=== PATIENT | female | born 1980 ===

== ENCOUNTER 2023-08-11 21:15 | Outpatient (REF) | payer MEDICARE, MEDICAID, SELFPAY ==
[2023-08-15 22:07] LABS: Age Gdln ACOG Testing Note (.); HPV Aptima Positive (Negative); HPV Genotype 16 Negative (Negative); HPV Genotype 18,45 Negative (Negative); IGP, Aptima HPV, rfx 16/18,45 Note (.)
== END 2023-08-11 21:16 | disposition home or self-care (01) ==
LOC: LAB 21:15
PROVIDERS: PCP Physician Assistant; Visit Provider Physician Assistant
DX: Z01.419 Encounter for gynecological examination (general) (routine) without abnormal findings (principal)
CPT/HCPCS: 87624; 87625; G0145

== ENCOUNTER 2024-08-16 21:26 | Outpatient (REF) | payer OTHER, SELFPAY ==
--- OUTSIDE RECORDS SUMMARY | 2024-08-16 21:32 | XMS_ITS | CCD ---
Author Organization [facility] Care Team Providers Care Health It Specialist Name Role Phone Scot Joseph MD Unavailable Fuentes Proctor MD Unavailable [phone] MD, Aramis Primary Care Provider Oliverio Willis Unavailable Scot Joseph MD Unavailable Fuentes Proctor MD Unavailable [address] MD, Aramis Primary Care Provider Shaikh Laila uBrroughs MD Primary Care Provider [address] MD, Aramis Primary Care Provider Shaikh Burroughs MD Primary Care Provider MD Duran Loaiza Attending Provider MD Pretty Burroughs Primary Care Provider Duran Loaiza Attending Unavailable Duran Loaiza Admitting Unavailable Shaikh Burroughs Primary Care Unavailable MD Duran Loaiza Attending Provider MD Pretty Burroughs Primary Care Provider SHAIKH BURROUGHS Primary Care Unavailable ABA MENON Attending Unavailable SHAIKH BURROUGHS Referring Unavailable SHAIKH BURROUGHS Primary Care Unavailable SHAIKH BURROUGHS Primary Care Unavailable ROBERTO FRANCO Attending Unavailable SHAIKH BURROUGHS Primary Care Unavailable YASMEEN LANIER Attending Unavailab le FAWWAD, Attending Unavailable MARAL HICKEY Attending Unavailable FAWWAD, Attending Unavailable FAWWAD, Attending Unavailable FAWWAD, Attending Unavailable COLLETTE SALINAS Attending UnavailEdmundo Hart MD Primary Care Provider Rita [facility] VICE PRESIDENT, Collette Unavailable SELF, SELF Referring Unavailable KALYAN PROCTOR Attending Unavailable FAWWAD, [facility] Primary Care Unavailab le NELLISLERLOIKALYAN L Referring Unavailable FAWWAD, [facility] Primary Care Unavailab GEORGE Rodriguez Attending Unavailable GEORGE BANKS Attending Unavailable KALYAN PROCTOR L Referring Unavailable FAWWAD, [facility] Primary Care Unavailab aliyah ROCAAMGEORGE Attending Unavailable KALYAN PROCTOR L Referring Unavailable FAWWAD, [facility] Primary Care Unavailab le KALYAN PROCTOR Attending Unavailable SELF, SELF Referring Unavailable FAWWAD, [facility] Primary Care Unavailab GEORGE Rodriguez Attending Unavailable WHKALYAN GUERRA L Referring Unavailable FAWWAD, [facility] Primary Care Unavailab GEORGE Rodriguez Attending Unavailable KALYAN PROCTOR L Referring Unavailable FAWWAD, [facility] Primary Care Unavailab le WHISLER KALYAN L Referring Unavailable FAWWAD, [facility] Primary Care Unavailab STORM Zelaya Attending Unavailable KALYAN PROCTOR Attending Unavailable SELF, SELF Referring Unavailable FAWWAD, [facility] Primary Care Unavailab le WHISLER KALYAN L Referring Unavailable FAWWAD, [facility] Primary Care Unavailab ANGELLA Mariscal Attending Unavailable KALYAN PROCTOR Referring Unavailable FAWWAD, [facility] Primary Care Unavailab ANGELLA Mariscal Attending Unavailable ANDRZEJ WHITE Attending Unavailable KALYAN PROCTOR Referring Unavailable FAWWAD, [facility] Primary Care Unavailab le KALYAN PROCTOR L Referring Unavailable FAWWAD, [facility] Primary Care Unavailab MELISSA Cheng Attending Unavailable Allergies Allergy Classification Reported Allergen(s) Allergy Type Date of Onset Reaction(s) Facility Latex (1 source) Latex Substance Allergy 11-24-19 11 Itching [facility] NSAIDs (1 source) Naproxen Drug Allergy 11-24-19 11 [facility] ([facility] source) Penicillin V Drug Allergy 11-24-19 11 Rash [facility] Quinolones (antibiotic) (2 sources) Ciprofloxacin Drug Allergy 04-11-20 11 Rash [facility] (20 sources) Ciprofloxacin Drug Allergy 04-11-20 11 Rash [facility] (19 sources) Latex Propensity to adverse reactions to drug 11-24-19 11 Itching [facility] (20 sources) Naproxen Drug Allergy 11-24-19 11 Abdominal Discomfort, GI intolerance [facility] (20 sources) Penicillin V Drug Allergy 11-24-19 11 Rash [facility] (20 sources) Latex Propensity to adverse reactions to drug 11-24-19 11 Itching [facility] (2 sources) Penicillin Drug Allergy Unknown [facility] Other (10 sources) Penicillins; Translations: [PENICILLINS] Propensity to adverse reactions 05-10-20 19 Rash [facility] (4 sources) Ciprofloxacin; Translations: [ciprofloxacin] Drug Allergy 05-10-20 19 Unknown Reaction [facility] (1 source) Penicillins Drug allergy (disorder) 08-26-19 24 [facility] Repository Medications Current Medications Medication Drug Class(es) Dates Sig (Normalized) Sig (Original) azaTHIOprine 50 mg oral tablet (20 sources) Purine Antimetabolite Start: 04-04-2023 End: 06-14-2024 take 1 tablet by mouth in the morning azaTHIOprine (Imuran) 50 MG tablet Take 50 mg by mouth in the morning. 06/07/2023 Active clindamycin 300 mg oral capsule (1 source) Lincosamide Antibacterial Start: 11-13-2023 End: 11-20-2023 take 1 capsule by mouth three times daily clindamycin 300 MG capsule Take 1 capsule by mouth Three times a day. 11/13/2023 11/20/2023 Active colchicine 0.6 mg oral tablet (1 source) Start: 08-30-2019 take 1 tablet by mouth twice daily Colcrys 0.6 MG tablet Take 0.6 mg by mouth 2 times daily. 0 08/30/2019 Active DISABILITY PLACARD (20 sources) Start: 03-12-2024 DISABILITY PLACARD Indications: Seronegative rheumatoid arthritis , Rheumatoid arthritis involving multiple sites with positive rheumatoid factor , Polyarthralgia , Encounter for long-term current use of medication Disability placard end date 2023 has arthritis needs placard 4 years cannot walk 30 feet 1 Each 03/12/2024 Active Start: 03-12-2024 DISABILITY CLARITA CARD Disability placard end date 2028 has arthritis cannot walk 20 feet needs placard 5 years 1 Each 03/12/2024 Active Start: 03-12-2024 DISABILITY CLARITA CARD Disability placard end date 2028 has arhtritis cannot walk 20 feet needs placard 5 years 1 Each 03/12/2024 Active Start: 03-12-2024 DISABILITY CLARITA CARD Disability placard end date 2028 has arthritis needs placard 5 years cannot walk 30 feet From 12/21/2019 1 Each 03/12/2024 Active Start: 01-06-2024 End: 03-12-2024 DISABILITY PLACARD Indicatio ns: Seronegative rheumatoid arthritis , Rheumatoid arthritis involving multiple sites with positive rheumatoid factor , Polyarthralgia , Encounter for long-term current use of medication Disability placard end date 2023 has arthritis needs placard 4 years cannot walk 30 feet 1 Each 01/06/2024 03/12/2024 Discontinued (Reorder) Start: 01-06-2024 DISABILITY CLARITA CARD Indications: Seronegative rheumatoid arthritis , Rheumatoid arthritis involving multiple sites with positive rheumatoid factor , Polyarthralgia , Encounter for long-term current use of medication Disability placard end date 2023 has arthritis needs placard 4 years cannot walk 30 feet 1 Each 01/06/2024 Active Start: 12-30-2023 End: 03-12-2024 DISABILITY PLACARD Disabilit y placard end date 2028 has arthritis needs placard 5 years cannot walk 30 feet From 12/21/2019 1 Each 12/30/2023 03/12/2024 Discontinued (Reorder) Start: 12-30-2023 DISABILITY CLARITA CARD Disability placard end date 2028 has arthritis needs placard 5 years cannot walk 30 feet From 12/21/2019 1 Each 12/30/2023 Active Start: 12-21-2019 DISABILITY CLARITA CARD Indications: Seronegative rheumatoid arthritis , Rheumatoid arthritis involving multiple sites with positive rheumatoid factor , Polyarthralgia , Encounter for long-term current use of medication Disability placard end date 2023 has arthritis needs placard 4 years cannot walk 30 feet 1 Each 12/21/2019 Active Start: 12-21-2019 DISABILITY CLARITA CARD Indications: Seronegative rheumatoid arthritis , Rheumatoid arthritis involving multiple sites with positive rheumatoid factor , Polyarthralgia , Encounter for long-term current use of medication Disability placard end date 2023 has arthritis needs placard 4 years cannot walk 30 feet 1 Each 0 12/21/2019 Active inFLIXimab 100 mg injection (20 sources) Tumor Necrosis Factor Sally inFLIXimab (Remicade ) 100 MG injection Indications: BEHCETS Infuse 100 mg into a venous catheter 1 (one) time if needed (EVERY 5 WEEKS PER RHEUMATOLOGY). 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 Every 5 weeks Active Infliximab (Remicade) 100 mg Recon Soln (2 sources) Start: 07-26-2019 Infliximab (Re micade) 100 mg Recon Soln Active 1 DOSE IV EVERY 8 WEEKS July 26, 2019 1:00am Start: 07-26-2019 Infliximab (Re micade) 100 mg Recon Soln Active 1 DOSE IV EVERY 8 WEEKS July 26, 2019 12:00am omeprazole 40 mg delayed release oral capsule (5 sources) Proton Pump Inhibitor Start: 08-25-2023 take 1 capsule by mouth once daily Omeprazole Active 40 MG PO Daily August 25, 2023 1:00am [employer] capsule 30 minutes before morning meal Oral Once a day; Note: Source Status: Taking; Refills: 11; Provider: Lazaro Nance Start: 05-08-2023 omeprazole (Pr iLOSEC) [address] capsule Take by mouth Daily before meals. 0 05/08/2023 Active predniSONE 5 mg oral tablet (20 sources) Start: 03-24-2024 End: 06-14-2024 take 1 tablet by mouth twice daily predniSONE 5 MG tablet Indications: Seronegative rheumatoid arthritis , Polyarthralgia , Encounter for long-term current use of medication , Rheumatoid arthritis involving multiple sites with positive rheumatoid factor Take 1 tablet by mouth 2 times daily. 180 tablet 06/14/2024 Active Start: 01-01-2024 take 1 tablet by leah th twice daily predniSONE 5 MG tablet Indications: Seronegative rheumatoid arthritis , Polyarthralgia , Encounter for long-term current use of medication , Rheumatoid arthritis involving multiple sites with positive rheumatoid factor take 1 tablet by mouth 2 times a day 180 tablet 01/01/2024 Active Start: 09-30-2023 take 1 tablet by leah th twice daily predniSONE 5 MG tablet Indications: Seronegative rheumatoid arthritis , Polyarthralgia , Encounter for long-term current use of medication , Rheumatoid arthritis involving multiple sites with positive rheumatoid factor take 1 tablet by mouth twice a day 180 tablet 09/30/2023 Active Start: 06-23-2023 take 1 tablet by leah th twice daily predniSONE 5 MG tablet Indications: Seronegative rheumatoid arthritis , Polyarthralgia , Encounter for long-term current use of medication , Rheumatoid arthritis involving multiple sites with positive rheumatoid factor Take 1 tablet by mouth 2 times daily. 180 tablet 06/23/2023 Active Start: 03-20-2023 take 2 tablets by mo uth in the morning predniSONE (Deltasone) 5 MG tablet Take 10 mg by mouth in the morning. 03/20/2023 Active Start: 12-21-2019 End: 01-17-2023 take 1 tablet by mouth twice daily predniSONE 5 MG tablet Indications: Seronegative rheumatoid arthritis , Polyarthralgia , Encounter for long-term current use of medication , Rheumatoid arthritis involving multiple sites with positive rheumatoid factor Take 1 tablet by mouth 2 times daily. 180 tablet 0 01/17/2023 Active Start: 07-26-2019 take 10 mg by mouth once daily Prednisone Active 10 MG PO Daily July 26, 2019 1:00am Completed/Discontinued Medications Medication Drug Class(es) Dates Sig (Normalized) Sig (Original) inFLIXimab (REMICADE) 750 mg in sodium chloride 0.9%, with overfill 275 mL (total volume) IVPB (8 sources) Start: 06-14-2022 End: 06-14-2022 inFLIXimab (REMICADE) 750 mg in sodium chloride 0.9%, with overfill 275 mL (total volume) IVPB Start: 05-03-2022 End: 05-03-2022 inFLIXimab (REMICADE) 750 mg in sodium chloride 0.9%, with overfill 275 mL (total volume) IVPB Start: 03-29-2022 End: 03-29-2022 inFLIXimab (REMICADE) 750 mg in sodium chloride 0.9%, with overfill 275 mL (total volume) IVPB Start: 02-22-2022 End: 02-22-2022 inFLIXimab (REMICADE) 750 mg in sodium chloride 0.9%, with overfill 275 mL (total volume) IVPB Start: 01-18-2022 End: 01-18-2022 inFLIXimab (REMICADE) 750 mg in sodium chloride 0.9%, with overfill 275 mL (total volume) IVPB Start: 12-14-2021 End: 12-14-2021 inFLIXimab (REMICADE) 750 mg in sodium chloride 0.9%, with overfill 275 mL (total volume) IVPB Start: 11-02-2021 End: 11-02-2021 inFLIXimab (REMICADE) 750 mg in sodium chloride 0.9%, with overfill 275 mL (total volume) IVPB Start: 02-05-2021 End: 02-05-2021 inFLIXimab (REMICADE) 750 mg in sodium chloride 0.9%, with overfill 275 mL (total volume) IVPB inFLIXimab (REMICADE) 750 mg in Sodium chloride 0.9%, with overfill 275 mL (total volume) IVPB (11 sources) Start: 07-03-2023 End: 07-03-2023 inFLIXimab (REMICADE) 750 mg in Sodium chloride 0.9%, with overfill 275 mL (total volume) IVPB Start: 05-30-2023 End: 05-30-2023 inFLIXimab (REMICADE) 750 mg in Sodium chloride 0.9%, with overfill 275 mL (total volume) IVPB Start: 04-28-2023 End: 04-28-2023 inFLIXimab (REMICADE) 750 mg in Sodium chloride 0.9%, with overfill 275 mL (total volume) IVPB Start: 03-24-2023 End: 03-24-2023 inFLIXimab (REMICADE) 750 mg in Sodium chloride 0.9%, with overfill 275 mL (total volume) IVPB Start: 02-17-2023 End: 02-17-2023 inFLIXimab (REMICADE) 750 mg in Sodium chloride 0.9%, with overfill 275 mL (total volume) IVPB Start: 01-15-2023 End: 01-15-2023 inFLIXimab (REMICADE) 750 mg in Sodium chloride 0.9%, with overfill 275 mL (total volume) IVPB Start: 12-10-2022 End: 12-10-2022 inFLIXimab (REMICADE) 750 mg in Sodium chloride 0.9%, with overfill 275 mL (total volume) IVPB Start: 11-04-2022 End: 11-04-2022 inFLIXimab (REMICADE) 750 mg in Sodium chloride 0.9%, with overfill 275 mL (total volume) IVPB Start: 09-30-2022 End: 09-30-2022 inFLIXimab (REMICADE) 750 mg in Sodium chloride 0.9%, with overfill 275 mL (total volume) IVPB Start: 08-23-2022 End: 08-23-2022 inFLIXimab (REMICADE) 750 mg in Sodium chloride 0.9%, with overfill 275 mL (total volume) IVPB Start: 07-19-2022 End: 07-19-2022 inFLIXimab (REMICADE) 750 mg in Sodium chloride 0.9%, with overfill 275 mL (total volume) IVPB inFLIXimab 750 mg in Sodium chloride 0.9%, with overfill 275 mL (total volume) IVPB (9 sources) Start: 06-28-2024 End: 06-28-2024 750 mg, Intravenous, at 0-30 0 mL/hr, ONCE (OUTPT CLINIC), 1 dose, Starting on Fri06/28/24 at 1155, Until Fri06/28/24 at 1322, Initiate infusion at 100 mL/hr over 15 minutes, then 300 mL/hr for remainder of infusion. Give through 0.22 micron filter set. Filtration Required. Do not shake. Found in [employer]. Filtration Required. Do not shake. Found in [employer]. Start: 05-25-2024 End: 05-25-2024 750 mg, Intravenous, at 0-30 0 mL/hr, ONCE (OUTPT CLINIC), 1 dose, Starting on 05/25/24 at 1157, Until 05/25/24 at 1322, Initiate infusion at 100 mL/hr over 15 minutes, then 300 mL/hr for remainder of infusion. Give through 0.22 micron filter set. Filtration Required. Do not shake. Found in [employer]. Filtration Required. Do not shake. Found in [employer]. Start: 04-20-2024 End: 04-20-2024 750 mg, Intravenous, at 0-30 0 mL/hr, ONCE ([facility]), 1 dose, Starting on 04/20/24 at 1201, Until 04/20/24 at 1328, Initiate infusion at 100 mL/hr over 15 minutes, then 300 mL/hr for remainder of infusion. Give through 0.22 micron filter set. Filtration Required. Do not shake. Found in [employer]. Filtration Required. Do not shake. Found in [employer]. Start: 03-16-2024 End: 03-16-2024 750 mg, Intravenous, at 0-30 0 mL/hr, ONCE ([facility]), 1 dose, Starting on e 03/16/24 at 1000, Until 03/16/24 at 1030, Initiate infusion at 100 mL/hr over 15 minutes, then 300 mL/hr for remainder of infusion. Give through 0.22 micron filter set. Filtration Required. Do not shake. Found in [employer]. Filtration Required. Do not shake. Found in [employer]. Start: 02-10-2024 End: 02-10-2024 750 mg, Intravenous, at 0-30 0 mL/hr, ONCE ([facility]), 1 dose, Starting on 02/10/24 at 1047, Until 02/10/24 at 1216, Initiate infusion at 100 mL/hr over 15 minutes, then 300 mL/hr for remainder of infusion. Give through 0.22 micron filter set. Filtration Required. Do not shake. Found in [employer]. Filtration Required. Do not shake. Found in [employer]. Start: 01-06-2024 End: 01-06-2024 750 mg, Intravenous, at 0-30 0 mL/hr, ONCE ([facility]), 1 dose, Starting on 01/06/24 at 1054, Until 01/06/24 at 1226, Initiate infusion at 100 mL/hr over 15 minutes, then 300 mL/hr for remainder of infusion. Give through 0.22 micron filter set. Filtration Required. Do not shake. Found in [employer]. Filtration Required. Do not shake. Found in [employer]. Start: 11-28-2023 End: 11-28-2023 750 mg, Intravenous, at 0-30 0 mL/hr, ONCE ([facility]), 1 dose, Starting on Fri11/28/23 at 1053, Until Fri11/28/23 at 1219, Initiate infusion at 100 mL/hr over 15 minutes, then 300 mL/hr for remainder of infusion. Give through 0.22 micron filter set. Filtration Required. Do not shake. Found in [employer]. Filtration Required. Do not shake. Found in [employer]. Start: 10-16-2023 End: 10-16-2023 750 mg, Intravenous, at 0-30 0 mL/hr, ONCE ([facility]), 1 dose, Starting on Sarahi 10/16/23 at 1142, Until Sarahi 10/16/23 at 1305, Initiate infusion at 100 mL/hr over 15 minutes, then 300 mL/hr for remainder of infusion. Give through 0.22 micron filter set. Filtration Required. Do not shake. Found in [employer]. Filtration Required. Do not shake. Found in [employer] [facility]. Start: 09-11-2023 End: 09-11-2023 750 mg, Intravenous, at 0-30 0 mL/hr, ONCE ([facility]), 1 dose, Starting on Sarahi 09/11/23 at 1132, Until Sarahi 09/11/23 at 1259, Initiate infusion at 100 mL/hr over 15 minutes, then 300 mL/hr for remainder of infusion. Give through 0.22 micron filter set. Filtration Required. Do not shake. Found in [employer]. Filtration Required. Do not shake. Found in [employer]. methotrexate 2.5 mg oral tablet (13 sources) Folate Analog Metabolic Inhibitor Start: 06-10-2022 End: 04-04-2023 methotrexate 2.5 MG tablet Take 3 tablets by mouth every 7 days. 20 tablet 4 06/10/2022 04/04/2023 Discontinued (Therapy completed) metroNIDAZOLE 500 mg oral tablet (2 sources) Nitroimidazole Antimicrobial Start: 07-26-2019 End: 08-25-2023 take 1 tablet by mouth three times daily Metronidazole (Flagyl) 500 mg tablet Discontinued 500 MG PO Three times daily July 26, 2019 1:00am August 25, 2023 4:25pm sulfamethoxazole 800 mg / trimethoprim 160 mg oral tablet (2 sources) Dihydrofolate Reductase Inhibitor Antibacterial, Sulfonamide Antimicrobial Start: 07-26-2019 End: 08-25-2023 take 1 tablet by mouth twice daily Sulfamethoxazole-T rimethoprim (Bactrim Ds) 800-160 mg tablet Discontinued 1 TAB PO Twice daily 02 05July 26, 2019 1:00am August 25, 2023 4:25pm Problems Active Problems Problem Classification Problem Date Documented Da te Episodic/Chronic Diseases of mouth; excluding dental (2 sources) Sore lip; Translations: [Diseases of lips] Episodic Esophageal disorders (4 sources) Gastroesophageal reflux disease; Translations: [Gastro-esophageal reflux disease without esophagitis] Chronic Heart valve disorders (20 sources) Mitral valve prolapse; Translations: [Nonrheumatic mitral (valve) prolapse] Onset: 07-10-2016 Chronic Malaise and fatigue (1 source) Malaise; Translations: [Other malaise] Episodic Nausea and vomiting (1 source) Nausea with vomiting, unspecified; Translations: [Persistent vomiting] 10-03-2023 Episodic Noninfectious gastroenteritis (2 sources) Colitis; Translations: [Noninfective gastroenteritis and colitis, unspecified] 06-25-2023 Episodic Other aftercare (1 source) Long-term current use of drug therapy; Translations: [Other intermediate school teacher (current) drug therapy] 06-14-2024 Episodic Other disorders of stomach and duodenum (2 sources) Indigestion; Translations: [Functional dyspepsia] 10-03-2023 Episodic Other disorders of stomach and duodenum (1 source) Functional dyspepsia Episodic Other ear and sense organ disorders (1 source) Hearing loss of left ear; Translations: [Unspecified hearing loss, left ear] 06-14-2024 Chronic Other ear and sense organ disorders (1 source) Swimmer's ear, unspecified ear; Translations: [Swimmer's ear, unspecified ear] Onset: 4 Episodic Other ear and sense organ disorders (1 source) Hearing loss of left ear; Translations: [Impacted cerumen, left ear] 06-14-2024 Episodic Other gastrointestinal disorders (2 sources) Abdominal distension (gaseous) Episodic Other gastrointestinal disorders (1 source) Flatulence, eructation and gas pain; Translations: [Abdominal distension (gaseous)] Episodic Other lower respiratory disease (1 source) Rib pain; Translations: [Pleurodynia] Episodic Other nervous system disorders (1 source) Paresthesia of upper limb; Translations: [Anesthesia of skin] Episodic Other non-traumatic joint disorders (12 sources) Multiple joint pain; Translations: [Pain in unspecified joint] Episodic Residual codes; unclassified (1 source) Early satiety Episodic Residual codes; unclassified (2 sources) Generalized aches and pains; Translations: [Pain, unspecified] 06-25-2023 Episodic Rheumatoid arthritis and related disease (20 sources) Seronegative rheumatoid arthritis; Translations: [Rheumatoid arthritis without rheumatoid factor, unspecified site] Onset: 5 Chronic Substance-related disorders (14 sources) Smoker; Translations: [Nicotine dependence, unspecified, uncomplicated] Onset: 3 06-11-2023 Chronic Unclassified (1 source) Dental Problem Onset: 4 Unclassified (1 source) Mouth Pain Onset: 4 Past or Other Problems Problem Classification Problem Date Documented Da te Episodic/Chronic Abdominal pain (12 sources) Unspecified abdominal pain; Translations: [Left upper quadrant pain] Onset: 3 Episodic Administrative/social admission (6 sources) First encounter by subject; Translations: [Persons encountering health services in other specified circumstances] Onset: 3 06-11-2023 Episodic Disorders of teeth and jaw (7 sources) Periapical abscess without sinus; Translations: [Dental abscess] Onset: 4 11-18-2023 Episodic Other aftercare (20 sources) Patient encounter status; Translations: [Other intermediate school teacher (current) drug therapy] Onset: 2 Resolved: 7 12-27-2011 Episodic Other aftercare (20 sources) Long-term current use of systemic steroid; Translations: [intermediate (current) use of systemic steroids] Onset: 6 01-03-2017 Episodic Other aftercare (20 sources) Long-term current use of steroid; Translations: [Chronic use of steroids] Onset: 5 Resolved: 6 01-17-2016 Episodic Other aftercare (7 sources) 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; Translations: [technician terminal and repeater (current) use of systemic steroids] Onset: 3 06-11-2023 Episodic Other aftercare (7 sources) 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; 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] Onset: 3 06-11-2023 Episodic Other complications of (20 sources) Maternal drug exposure; Translations: [Supervision of other high risk pregnancies, first trimester] Onset: 4 Resolved: 5 01-12-2015 Episodic Other complications of (20 sources) Elderly primigravida; Translations: [Supervision of elderly primigravida, unspecified trimester] Onset: 4 Resolved: 5 01-12-2015 Episodic Other complications of (20 sources) High risk ; Translations: [Supervision of other high risk pregnancies, first trimester] Onset: 6 Resolved: 7 02-06-2017 Episodic Other complications of (20 sources) Multigravida of advanced maternal age; Translations: [Supervision of elderly multigravida, unspecified trimester] Onset: 6 Resolved: 7 02-06-2017 Episodic Other complications of (20 sources) Abnormal biochemical finding on screening of mother; Translations: [Abnormal biochemical finding on screening of mother] Onset: 7 Resolved: 7 02-06-2017 Episodic Other connective tissue disease (20 sources) Behcet's syndrome; Translations: [Behcet's disease] Onset: 3 Episodic Other connective tissue disease (1 source) Behcet's disease; Translations: [Behcet's disease] Onset: 2 Episodic Other ear and sense organ disorders (1 source) Ear problem Onset: 4 Episodic Other gastrointestinal disorders (7 sources) Anterior abdominal wall mass; Translations: [Left upper quadrant abdominal swelling, mass and lump] Onset: 3 06-11-2023 Episodic Other gastrointestinal disorders (1 source) Left upper quadrant abdominal swelling, mass and lump; Translations: [Left upper quadrant abdominal swelling, mass and lump] Onset: 4 Episodic Other non-traumatic joint disorders (20 sources) Joint pain; Translations: [Pain in unspecified joint] Onset: 2 12-27-2011 Episodic Other non-traumatic joint disorders (20 sources) Wrist joint pain; Translations: [Pain in right wrist] Onset: 6 07-26-2015 Episodic Other and delivery including normal (20 sources) ; Translations: [Encounter for supervision of normal , unspecified, unspecified trimester] Onset: 5 Resolved: 7 01-12-2015 Episodic Otitis media and related conditions (1 source) Otitis media, unspecified, unspecified ear; Translations: [Otitis media, unspecified, unspecified ear] Onset: 4 Episodic Residual codes; unclassified (20 sources) Family history of cleft palate; Translations: [Family history of other congenital malformations, deformations and chromosomal abnormalities] Onset: 4 06-17-2014 Episodic Results Test Name Value Interpretation Reference Range Facility HEPATIC FUNCTION PANELon Albumin [Mass/Vol] 4.4 g/dL 3.5 - 5.0 g/dL [facility] ALP [Catalytic activity/Vol] 80 U/L 32 - 126 U/L [facility] ALT [Catalytic activity/Vol] 9 U/L 9 - 48 U/L [facility] AST [Catalytic activity/Vol] 21 U/L 10 - 39 U/L [facility] Bilirubin [Mass/Vol] 0.8 mg/dL NINF - 1.5 [facility] [Mass/Vol] 0.2 mg/dL NINF - 0.3 mg/dL [facility] Comment on above: Specimen hemolyzed. Direct bilirubin results may be falsely decreased. Interpret within the clinical context. Interpretation and review of laboratory results Normal [facility] Protein [Mass/Vol] 7.3 g/dL 6.4 - 8.3 g/dL [facility] Albumin [Mass/Vol] 4.4 g/dL Normal 3.5-5.0 [facility] Comment on above: Order Comment: Every 3 months while receiving Remicade. Performed By: #### H FP #### [facility] (DEFAULT) [address] [address] ALP [Catalytic activity/Vol] 80 U/L Normal 32-126 [facility] Comment on above: Order Comment: Every 3 months while receiving Remicade. Performed By: #### H FP #### [facility] (DEFAULT) [address] [address] ALT [Catalytic activity/Vol] 9 U/L Normal 9-48 [facility] Comment on above: Order Comment: Every 3 months while receiving Remicade. Performed By: #### H FP #### [facility] (DEFAULT) [address] [address] AST [Catalytic activity/Vol] 21 U/L Normal 10-39 [facility] Comment on above: Order Comment: Every 3 months while receiving Remicade. Performed By: #### H FP #### [facility] (DEFAULT) [address] [address] Bilirubin [Mass/Vol] 0.8 mg/dL Normal <1.5 [facility] Comment on above: Order Comment: Every 3 months while receiving Remicade. Performed By: #### H FP #### [facility] (DEFAULT) [address] [address] Bilirubin.indirect [Mass/Vol] 0.2 mg/dL Normal <0.3 [facility] Comment on above: Order Comment: Every 3 months while receiving Remicade. Result Comment: Spec imen hemolyzed. Direct bilirubin results may be falsely decreased. Interpret within the clinical context. Performed By: #### H FP #### [facility] (DEFAULT) [address] [place] [address] Protein [Mass/Vol] 7.3 g/dL Normal 6.4-8.3 [facility] Comment on above: Order Comment: Every 3 months while receiving Remicade. Performed By: #### H FP #### [facility] (DEFAULT) [address] [place] [address] CBC AND ELECTRONIC DIFFon Basophils (Bld) [#/Vol] K/uL 0.00 - 0.15 K/uL [facility] Basophils/100 WBC (Bld) 0.4 % [facility] Differential cell count method Nom (Bld) Electronic Differential [facility] Eosinophils (Bld) [#/Vol] K/uL 0.00 - 0.42 K/uL [facility] Eosinophils/100 WBC (Bld) 0.3 % [facility] Erythrocyte distribution width (RBC) [Ratio] 13.7 % 10.8 - 14.9 % [facility] Hematocrit (Bld) [Volume fraction] 44.7 % High 34.9 - 44.3 % [facility] Hemoglobin (Bld) [Mass/Vol] 14.8 g/dL 11.4 - 15.2 g/dL [facility] Immature granulocytes (Bld) [#/Vol] K/uL NINF - 0.08 K/uL [facility] Immature granulocytes/100 WBC (Bld) 0.3 % [facility] Interpretation and review of laboratory results Abnormal [facility] Lymphocytes (Bld) [#/Vol] 1.63 10*3/uL 1.16 - 3.51 K/uL [facility] Lymphocytes/100 WBC (Bld) 24.2 % [facility] MCH (RBC) [Entitic mass] 30.5 pg 25.9 - 33.9 pg [facility] MCHC (RBC) [Mass/Vol] 33.1 g/dL 31.4 - 35.9 g/dL [facility] MCV (RBC) [Entitic vol] 92.0 fL 79.6 - 97.7 fL [facility] Monocytes (Bld) [#/Vol] 0.15 10*3/uL Low 0.22 - 0.87 K/uL [facility] Monocytes/100 WBC (Bld) 2.2 % [facility] Neutrophils (Bld) [#/Vol] 4.89 10*3/uL 1.64 - 7.28 K/uL [facility] Nucleated RBC/100 WBC (Bld) [Ratio] 0.0 % NINF [facility] Platelet mean volume (Bld) [Entitic vol] 11.7 fL 8.5 - 12.2 fL [facility] Platelets (Bld) [#/Vol] 197 10*3/uL 150 - 393 K/uL [facility] RBC (Bld) [#/Vol] 4.86 10*6/uL [facility] Segmented neutrophils/100 WBC (Bld) 72.6 % [facility] WBC (Bld) [#/Vol] 6.74 10*3/uL 3.99 - 11. 19 K/uL [facility] Abs Baso Auto < Normal 0.00-0.15 [facility] Comment on above: Order Comment: Every 3 months while receiving Remicade. Performed By: #### L [id number] #### [facility] (DEFAULT) [address] [address] Abs Eos Auto < Normal 0.00-0.42 [facility] Comment on above: Order Comment: Every 3 months while receiving Remicade. Performed By: #### L [id number] #### [facility] (DEFAULT) [address] [address] Basophils/100 WBC (Bld) 0.4 % Normal [facility] Comment on above: Order Comment: Every 3 months while receiving Remicade. Performed By: #### L [id number] #### [facility] (DEFAULT) [address] [address] DIFF STATUS Electronic Differential Normal [facility] Comment on above: Order Comment: Every 3 months while receiving Remicade. Performed By: #### L [id number] #### [facility] (DEFAULT) [address] [address] Eosinophils/100 WBC (Bld) 0.3 % Normal [facility] Comment on above: Order Comment: Every 3 months while receiving Remicade. Performed By: #### L [id number] #### [facility] (DEFAULT) [address] [address] Hematocrit (Bld) [Volume fraction] 44.7 % High 34.9-44.3 [facility] Comment on above: Order Comment: Every 3 months while receiving Remicade. Performed By: #### L [id number] #### [facility] (DEFAULT) [address] [address] Hemoglobin (Bld) [Mass/Vol] 14.8 g/dL Normal 11.4-15.2 [facility] Comment on above: Order Comment: Every 3 months while receiving Remicade. Performed By: #### L [id number] #### [facility] (DEFAULT) [address] [address] Immature Grans % 0.3 % Normal [facility] Comment on above: Order Comment: Every 3 months while receiving Remicade. Performed By: #### L [id number] #### [facility] (DEFAULT) [address] [address] Immature Grans Absolute < Normal <=0.08 [facility] Comment on above: Order Comment: Every 3 months while receiving Remicade. Performed By: #### L [id number] #### [facility] (DEFAULT) [address] [address] Lymphocytes (Bld) [#/Vol] 1.63 10*3/uL Normal 1.16-3.51 [facility] Comment on above: Order Comment: Every 3 months while receiving Remicade. Performed By: #### L [id number] #### [facility] (DEFAULT) [address] [address] Lymphocytes/100 WBC (Bld) 24.2 % Normal [facility] Comment on above: Order Comment: Every 3 months while receiving Remicade. Performed By: #### L [id number] #### [facility] (DEFAULT) [address] [address] MCV (RBC) [Entitic vol] 92.0 fL Normal 79.6-97.7 [facility] Comment on above: Order Comment: Every 3 months while receiving Remicade. Performed By: #### L [id number] #### [facility] (DEFAULT) [address] [address] Mean Cell Hgb 30.5 pg Normal 25.9-33.9 [facility] Comment on above: Order Comment: Every 3 months while receiving Remicade. Performed By: #### L [id number] #### [facility] (DEFAULT) [address] [address] Mean Cell Hgb Conc 33.1 g/dL Normal 31.4-35.9 [facility] Comment on above: Order Comment: Every 3 months while receiving Remicade. Performed By: #### L [id number] #### [facility] (DEFAULT) [address] [address] Monocytes (Bld) [#/Vol] 0.15 10*3/uL Low 0.22-0.87 [facility] Comment on above: Order Comment: Every 3 months while receiving Remicade. Performed By: #### L [id number] #### [facility] (DEFAULT) [address] [address] Monocytes/100 WBC (Bld) 2.2 % Normal [facility] Comment on above: Order Comment: Every 3 months while receiving Remicade. Performed By: #### L [id number] #### [facility] (DEFAULT) [address] [address] Nucleated RBC 0.0 /100 WBC Normal <=0.2 [facility] Comment on above: Order Comment: Every 3 months while receiving Remicade. Performed By: #### L [id number] #### [facility] (DEFAULT) [address] [address] Platelet mean volume (Bld) [Entitic vol] 11.7 fL Normal 8.5-12.2 [facility] Comment on above: Order Comment: Every 3 months while receiving Remicade. Performed By: #### L [id number] #### [facility] (DEFAULT) [address] [address] Platelets (Bld) [#/Vol] 197 10*3/uL Normal 150-393 [facility] Comment on above: Order Comment: Every 3 months while receiving Remicade. Performed By: #### L [id number] #### [facility] (DEFAULT) [address] [address] RBC (Bld) [#/Vol] 4.86 10*6/uL Normal 3.91-5.04 [facility] Comment on above: Order Comment: Every 3 months while receiving Remicade. Performed By: #### L [id number] #### [facility] (DEFAULT) [address] [address] RBC Distribution 13.7 % Normal 10.8-14.9 [facility] Comment on above: Order Comment: Every 3 months while receiving Remicade. Performed By: #### L [id number] #### [facility] (DEFAULT) [address] [address] Segs + Bands Auto 72.6 % Normal [facility] Comment on above: Order Comment: Every 3 months while receiving Remicade. Performed By: #### L [id number] #### [facility] (DEFAULT) [address] [address] Segs + Bands,Absolute Auto 4.89 K/uL Normal 1.64-7.28 [facility] Comment on above: Order Comment: Every 3 months while receiving Remicade. Performed By: #### L [id number] #### [facility] (DEFAULT) [address] [address] WBC (Bld) [#/Vol] 6.74 10*3/uL Normal 3.99-11.19 [facility] Comment on above: Order Comment: Every 3 months while receiving Remicade. Performed By: #### L [id number] #### [facility] (DEFAULT) [address] [address] Laboratory - Microbiology an d Antimicrobial susceptibilityon 03-17-2024 M. tuberculosis tuberculin stim IFN-g/Mitogen stimulated gamma interferon Qn (Bld control) 0.01 IU/mL [facility] M TUBERCULOSIS BY QUANTIFERO N, BLDon 03-17-2024 M. tuberculosis tuberculin stim IFN-g Ql (Bld) Negative Negative [facility] M. tuberculosis tuberculin stim IFN-g/Mitogen stimulated gamma interferon Qn (Bld control) 9.98 IU/mL [facility] M. tuberculosis tuberculin stim IFN-g/Mitogen stimulated gamma interferon Qn (Bld control) 0.02 IU/mL [facility] HEPATIC FUNCTION PANELon Albumin [Mass/Vol] 4.9 g/dL 3.5 - 5.0 g/dL [facility] ALP [Catalytic activity/Vol] 61 U/L 32 - 126 U/L [facility] ALT [Catalytic activity/Vol] 10 U/L 9 - 48 U/L [facility] AST [Catalytic activity/Vol] 24 U/L 10 - 39 U/L [facility] Comment on above: Specimen slightly he molyzed. AST results may be falsely elevated. Interpret within the clinical context. Bilirubin [Mass/Vol] 1.1 mg/dL NINF - 1.5 mg/dL [facility] Bilirubin.direct [Mass/Vol] 0.2 mg/dL NINF - 0.3 mg/dL [facility] Interpretation and review of laboratory results Normal [facility] Protein [Mass/Vol] 8.1 g/dL 6.4 - 8.3 g/dL [facility] Albumin [Mass/Vol] 4.9 g/dL Normal 3.5-5.0 [facility] Comment on above: Order Comment: Every 3 months while receiving Remicade. Performed By: #### H FP #### [facility] (DEFAULT) [address] [address] ALP [Catalytic activity/Vol] 61 U/L Normal 32-126 [facility] Comment on above: Order Comment: Every 3 months while receiving Remicade. Performed By: #### H FP #### [facility] (DEFAULT) [address] [address] ALT [Catalytic activity/Vol] 10 U/L Normal 9-48 [facility] Comment on above: Order Comment: Every 3 months while receiving Remicade. Performed By: #### H FP #### [facility] (DEFAULT) [address] [address] AST [Catalytic activity/Vol] 24 U/L Normal 10-39 [facility] Comment on above: Order Comment: Every 3 months while receiving Remicade. Result Comment: Spec imen slightly hemolyzed. AST results may be falsely elevated. Interpret within the clinical context. Performed By: #### H FP #### [facility] (DEFAULT) [address] [address] Bilirubin [Mass/Vol] 1.1 mg/dL Normal <1.5 [facility] Comment on above: Order Comment: Every 3 months while receiving Remicade. Performed By: #### H FP #### [facility] (DEFAULT) [address] [address] Bilirubin.indirect [Mass/Vol] 0.2 mg/dL Normal <0.3 [facility] Comment on above: Order Comment: Every 3 months while receiving Remicade. Performed By: #### H FP #### [facility] (DEFAULT) [address] [address] Protein [Mass/Vol] 8.1 g/dL Normal 6.4-8.3 [facility] Comment on above: Order Comment: Every 3 months while receiving Remicade. Performed By: #### H FP #### [facility] (DEFAULT) [address] [address] M TUBERCULOSIS BY Luis TAPIA 03-16-2024 M. TB Mitogen-Nil 9.98 IU/mL Normal [facility] Comment on above: Order Comment: Annua lly while receiving Remicade. The M. Tuberculosis antigen levels cannot be correlated to stage or degree of infection, response to therapy or likelihood for progression to active disease. Results from QuantiFERON TB Gold Plus must be used in conjunction with individual epidemiological history, current medical status, and results of other diagnostic evaluation. Performed By: #### Q FTB #### [facility] (DEFAULT) [address] [address] M. TB Nil 0.02 IU/mL Normal [facility] Comment on above: Order Comment: Annua lly while receiving Remicade. The M. Tuberculosis antigen levels cannot be correlated to stage or degree of infection, response to therapy or likelihood for progression to active disease. Results from QuantiFERON TB Gold Plus must be used in conjunction with individual epidemiological history, current medical status, and results of other diagnostic evaluation. Performed By: #### Q FTB #### [facility] (DEFAULT) [address] [address] M. TB TB1-Nil 0.01 IU/mL Normal [facility] Comment on above: Order Comment: Annua lly while receiving Remicade. The M. Tuberculosis antigen levels cannot be correlated to stage or degree of infection, response to therapy or likelihood for progression to active disease. Results from QuantiFERON TB Gold Plus must be used in conjunction with individual epidemiological history, current medical status, and results of other diagnostic evaluation. Performed By: #### Q FTB #### [facility] (DEFAULT) [address] [address] M. TB TB2-Nil 0.01 IU/mL Normal [facility] Comment on above: Order Comment: Irma vanegas while receiving Remicade. The M. Tuberculosis antigen levels cannot be correlated to stage or degree of infection, response to therapy or likelihood for progression to active disease. Results from QuantiFERON TB Gold Plus must be used in conjunction with individual epidemiological history, current medical status, and results of other diagnostic evaluation. Performed By: #### Q FTB #### [facility] (DEFAULT) [address] [address] M. Tuberculosis by Quantiferon in tube Negative Normal Negative [facility] Comment on above: Order Comment: Irma vanegas while receiving Remicade. The M. Tuberculosis antigen levels cannot be correlated to stage or degree of infection, response to therapy or likelihood for progression to active disease. Results from QuantiFERON TB Gold Plus must be used in conjunction with individual epidemiological history, current medical status, and results of other diagnostic evaluation. Performed By: #### Q FTB #### [facility] (DEFAULT) [address] [place] [address] CBC AND ELECTRONIC DIFFon Basophils (Bld) [#/Vol] 0.06 10*3/uL 0.00 - 0.15 K/uL [facility] Basophils/100 WBC (Bld) 0.7 % [facility] Differential cell count method Nom (Bld) Electronic Differential [facility] Eosinophils (Bld) [#/Vol] 0.04 10*3/uL 0.00 - 0.42 K/uL [facility] Eosinophils/100 WBC (Bld) 0.4 % [facility] Erythrocyte distribution width (RBC) [Ratio] 13.6 % 10.8 - 14.9 % [facility] Hematocrit (Bld) [Volume fraction] 43.4 % 34.9 - 44.3 % [facility] Hemoglobin (Bld) [Mass/Vol] 14.4 g/dL 11.4 - 15.2 g/dL [facility] Immature granulocytes (Bld) [#/Vol] K/uL NINF - 0.08 K/uL [facility] Immature granulocytes/100 WBC (Bld) 0.3 % [facility] Lymphocytes (Bld) [#/Vol] 1.71 10*3/uL 1.16 - 3.51 K/uL [facility] Lymphocytes/100 WBC (Bld) 18.8 % [facility] MCH (RBC) [Entitic mass] 31.2 pg 25.9 - 33.9 pg [facility] MCHC (RBC) [Mass/Vol] 33.2 g/dL 31.4 - 35.9 g/dL [facility] MCV (RBC) [Entitic vol] 94.1 fL 79.6 - 97.7 fL [facility] Monocytes (Bld) [#/Vol] 0.29 10*3/uL 0.22 - 0.87 K/uL [facility] Monocytes/100 WBC (Bld) 3.2 % [facility] Neutrophils (Bld) [#/Vol] 6.95 10*3/uL 1.64 - 7.28 K/uL [facility] Nucleated RBC/100 WBC (Bld) [Ratio] 0.0 % [facility] Platelet mean volume (Bld) [Entitic vol] 12.2 fL 8.5 - 12.2 fL [facility] Platelets (Bld) [#/Vol] 194 10*3/uL 150 - 393 K/uL [facility] RBC (Bld) [#/Vol] 4.61 10*6/uL [facility] Segmented neutrophils/100 WBC (Bld) 76.6 % [facility] WBC (Bld) [#/Vol] 9.08 10*3/uL 3.99 - 11. 19 K/uL [facility] Basophils (Bld) [#/Vol] 0.06 10*3/uL Normal 0.00-0.15 [facility] Comment on above: Order Comment: Every 3 months while receiving Remicade. Performed By: #### L [id number] #### [facility] (DEFAULT) [address] [place] [address] Basophils/100 WBC (Bld) 0.7 % Normal [facility] Comment on above: Order Comment: Every 3 months while receiving Remicade. Performed By: #### L [id number] #### [facility] (DEFAULT) [address] [address] DIFF STATUS Electronic Differential Normal [facility] Comment on above: Order Comment: Every 3 months while receiving Remicade. Performed By: #### L [id number] #### [facility] (DEFAULT) [address] [address] Eosinophils (Bld) [#/Vol] 0.04 10*3/uL Normal 0.00-0.42 [facility] Comment on above: Order Comment: Every 3 months while receiving Remicade. Performed By: #### L [id number] #### [facility] (DEFAULT) [address] [address] Eosinophils/100 WBC (Bld) 0.4 % Normal [facility] Comment on above: Order Comment: Every 3 months while receiving Remicade. Performed By: #### L [id number] #### [facility] (DEFAULT) [address] [address] Hematocrit (Bld) [Volume fraction] 43.4 % Normal 34.9-44.3 [facility] Comment on above: Order Comment: Every 3 months while receiving Remicade. Performed By: #### L [id number] #### [facility] (DEFAULT) [address] [address] Hemoglobin (Bld) [Mass/Vol] 14.4 g/dL Normal 11.4-15.2 [facility] Comment on above: Order Comment: Every 3 months while receiving Remicade. Performed By: #### L [id number] #### [facility] (DEFAULT) [address] [address] Immature Grans % 0.3 % Normal [facility] Comment on above: Order Comment: Every 3 months while receiving Remicade. Performed By: #### L [id number] #### [facility] (DEFAULT) [address] [address] Immature Grans Absolute < Normal <=0.08 [facility] Comment on above: Order Comment: Every 3 months while receiving Remicade. Performed By: #### L [id number] #### [facility] (DEFAULT) [address] [address] Lymphocytes (Bld) [#/Vol] 1.71 10*3/uL Normal 1.16-3.51 [facility] Comment on above: Order Comment: Every 3 months while receiving Remicade. Performed By: #### L [id number] #### [facility] (DEFAULT) [address] [address] Lymphocytes/100 WBC (Bld) 18.8 % Normal [facility] Comment on above: Order Comment: Every 3 months while receiving Remicade. Performed By: #### L [id number] #### [facility] (DEFAULT) [address] [address] MCV (RBC) [Entitic vol] 94.1 fL Normal 79.6-97.7 [facility] Comment on above: Order Comment: Every 3 months while receiving Remicade. Performed By: #### L [id number] #### [facility] (DEFAULT) [address] [address] Mean Cell Hgb 31.2 pg Normal 25.9-33.9 [facility] Comment on above: Order Comment: Every 3 months while receiving Remicade. Performed By: #### L [id number] #### [facility] (DEFAULT) [address] [address] Mean Cell Hgb Conc 33.2 g/dL Normal 31.4-35.9 [facility] Comment on above: Order Comment: Every 3 months while receiving Remicade. Performed By: #### L [id number] #### [facility] (DEFAULT) [address] [address] Monocytes (Bld) [#/Vol] 0.29 10*3/uL Normal 0.22-0.87 [facility] Comment on above: Order Comment: Every 3 months while receiving Remicade. Performed By: #### L [id number] #### [facility] (DEFAULT) [address] [address] Monocytes/100 WBC (Bld) 3.2 % Normal [facility] Comment on above: Order Comment: Every 3 months while receiving Remicade. Performed By: #### L [id number] #### [facility] (DEFAULT) [address] [address] Nucleated RBC 0.0 /100 WBC Normal <=0.2 [facility] Comment on above: Order Comment: Every 3 months while receiving Remicade. Performed By: #### L [id number] #### [facility] (DEFAULT) [address] [address] Platelet mean volume (Bld) [Entitic vol] 12.2 fL Normal 8.5-12.2 [facility] Comment on above: Order Comment: Every 3 months while receiving Remicade. Performed By: #### L [id number] #### [facility] (DEFAULT) [address] [address] Platelets (Bld) [#/Vol] 194 10*3/uL Normal 150-393 [facility] Comment on above: Order Comment: Every 3 months while receiving Remicade. Performed By: #### L [id number] #### [facility] (DEFAULT) [address] [address] RBC (Bld) [#/Vol] 4.61 10*6/uL Normal 3.91-5.04 [facility] Comment on above: Order Comment: Every 3 months while receiving Remicade. Performed By: #### L [id number] #### [facility] (DEFAULT) [address] [address] RBC Distribution 13.6 % Normal 10.8-14.9 [facility] Comment on above: Order Comment: Every 3 months while receiving Remicade. Performed By: #### L [id number] #### [facility] (DEFAULT) [address] [place] [address] Segs + Bands Auto 76.6 % Normal [facility] Comment on above: Order Comment: Every 3 months while receiving Remicade. Performed By: #### L [id number] #### [facility] (DEFAULT) [address] [address] Segs + Bands,Absolute Auto 6.95 K/uL Normal 1.64-7.28 [facility] Comment on above: Order Comment: Every 3 months while receiving Remicade. Performed By: #### L [id number] #### [facility] (DEFAULT) [address] [address] WBC (Bld) [#/Vol] 9.08 10*3/uL Normal 3.99-11.19 [facility] Comment on above: Order Comment: Every 3 months while receiving Remicade. Performed By: #### L [id number] #### [facility] (DEFAULT) [address] [address] HEPATIC FUNCTION PANELon Albumin [Mass/Vol] 4.5 g/dL 3.5 - 5.0 g/dL [facility] ALP [Catalytic activity/Vol] 62 U/L 32 - 126 U/L [facility] ALT [Catalytic activity/Vol] 10 U/L 9 - 48 U/L [facility] AST [Catalytic activity/Vol] 16 U/L 10 - 39 U/L [facility] Bilirubin [Mass/Vol] 1.1 mg/dL NINF - 1.5 mg/dL [facility] Bilirubin.direct [Mass/Vol] 0.2 mg/dL NINF - 0.3 mg/dL [facility] Interpretation and review of laboratory results Normal [facility] Protein [Mass/Vol] 7.5 g/dL 6.4 - 8.3 g/dL [facility] Albumin [Mass/Vol] 4.5 g/dL Normal 3.5-5.0 [facility] Comment on above: Order Comment: Every 3 months while receiving Remicade. Performed By: #### H FP #### [facility] (DEFAULT) [address] [address] ALP [Catalytic activity/Vol] 62 U/L Normal 32-126 [facility] Comment on above: Order Comment: Every 3 months while receiving Remicade. Performed By: #### H FP #### [facility] (DEFAULT) [address] [address] ALT [Catalytic activity/Vol] 10 U/L Normal 9-48 [facility] Comment on above: Order Comment: Every 3 months while receiving Remicade. Performed By: #### H FP #### [facility] (DEFAULT) [address] [address] AST [Catalytic activity/Vol] 16 U/L Normal 10-39 [facility] Comment on above: Order Comment: Every 3 months while receiving Remicade. Performed By: #### H FP #### [facility] (DEFAULT) [address] [address] Bilirubin [Mass/Vol] 1.1 mg/dL Normal <1.5 [facility] Comment on above: Order Comment: Every 3 months while receiving Remicade. Performed By: #### H FP #### [facility] (DEFAULT) [address] [address] Bilirubin.indirect [Mass/Vol] 0.2 mg/dL Normal <0.3 [facility] Comment on above: Order Comment: Every 3 months while receiving Remicade. Performed By: #### H FP #### [facility] (DEFAULT) [address] [address] Protein [Mass/Vol] 7.5 g/dL Normal 6.4-8.3 [facility] Comment on above: Order Comment: Every 3 months while receiving Remicade. Performed By: #### H FP #### [facility] (DEFAULT) [address] [place] [address] CBC AND ELECTRONIC DIFFon Basophils (Bld) [#/Vol] 0.06 10*3/uL 0.00 - 0.15 K/uL [facility] Basophils/100 WBC (Bld) 0.5 % [facility] Differential cell count method Nom (Bld) Electronic Differential [facility] Eosinophils (Bld) [#/Vol] 0.11 10*3/uL 0.00 - 0.42 K/uL [facility] Eosinophils/100 WBC (Bld) 0.9 % [facility] Erythrocyte distribution width (RBC) [Ratio] 13.1 % 10.8 - 14.9 % [facility] Hematocrit (Bld) [Volume fraction] 44.9 % High 34.9 - 44.3 % [facility] Hemoglobin (Bld) [Mass/Vol] 15.0 g/dL 11.4 - 15.2 g/dL [facility] Immature granulocytes (Bld) [#/Vol] 0.05 10*3/uL NINF - 0.08 K/uL [facility] Immature granulocytes/100 WBC (Bld) 0.4 % [facility] Interpretation and review of laboratory results Abnormal [facility] Lymphocytes (Bld) [#/Vol] 3.96 10*3/uL High 1.16 - 3.51 K/uL [facility] Lymphocytes/100 WBC (Bld) 33.9 % [facility] MCH (RBC) [Entitic mass] 32.1 pg 25.9 - 33.9 pg [facility] MCHC (RBC) [Mass/Vol] 33.4 g/dL 31.4 - 35.9 g/dL [facility] MCV (RBC) [Entitic vol] 95.9 fL 79.6 - 97.7 fL [facility] Monocytes (Bld) [#/Vol] 0.71 10*3/uL 0.22 - 0.87 K/uL [facility] Monocytes/100 WBC (Bld) 6.1 % [facility] Neutrophils (Bld) [#/Vol] 6.78 10*3/uL 1.64 - 7.28 K/uL [facility] Nucleated RBC/100 WBC (Bld) [Ratio] 0.0 % NINF [facility] Platelet mean volume (Bld) [Entitic vol] 12.2 fL 8.5 - 12.2 fL [facility] Platelets (Bld) [#/Vol] 218 10*3/uL 150 - 393 K/uL [facility] RBC (Bld) [#/Vol] 4.68 10*6/uL [facility] Segmented neutrophils/100 WBC (Bld) 58.2 % [facility] WBC (Bld) [#/Vol] 11.67 10*3/uL High 3.99 - 11 .19 K/uL [facility] Basophils (Bld) [#/Vol] 0.06 10*3/uL Normal 0.00-0.15 [facility] Comment on above: Order Comment: Every 3 months while receiving Remicade. Performed By: #### L [id number] #### [facility] (DEFAULT) [address] [address] Basophils/100 WBC (Bld) 0.5 % Normal [facility] Comment on above: Order Comment: Every 3 months while receiving Remicade. Performed By: #### L [id number] #### [facility] (DEFAULT) [address] [address] DIFF STATUS Electronic Differential Normal [facility] Comment on above: Order Comment: Every 3 months while receiving Remicade. Performed By: #### L [id number] #### [facility] (DEFAULT) [address] [address] Eosinophils (Bld) [#/Vol] 0.11 10*3/uL Normal 0.00-0.42 [facility] Comment on above: Order Comment: Every 3 months while receiving Remicade. Performed By: #### L [id number] #### [facility] (DEFAULT) [address] [address] Eosinophils/100 WBC (Bld) 0.9 % Normal [facility] Comment on above: Order Comment: Every 3 months while receiving Remicade. Performed By: #### L [id number] #### [facility] (DEFAULT) [address] [address] Hematocrit (Bld) [Volume fraction] 44.9 % High 34.9-44.3 [facility] Comment on above: Order Comment: Every 3 months while receiving Remicade. Performed By: #### L [id number] #### [facility] (DEFAULT) [address] [address] Hemoglobin (Bld) [Mass/Vol] 15.0 g/dL Normal 11.4-15.2 [facility] Comment on above: Order Comment: Every 3 months while receiving Remicade. Performed By: #### L [id number] #### [facility] (DEFAULT) [address] [address] Immature Grans % 0.4 % Normal [facility] Comment on above: Order Comment: Every 3 months while receiving Remicade. Performed By: #### L [id number] #### [facility] (DEFAULT) [address] [address] Immature Grans Absolute 0.05 K/uL Normal <=0.08 [facility] Comment on above: Order Comment: Every 3 months while receiving Remicade. Performed By: #### L [id number] #### [facility] (DEFAULT) [address] [address] Lymphocytes (Bld) [#/Vol] 3.96 10*3/uL High 1.16-3.51 [facility] Comment on above: Order Comment: Every 3 months while receiving Remicade. Performed By: #### L [id number] #### [facility] (DEFAULT) [address] [address] Lymphocytes/100 WBC (Bld) 33.9 % Normal [facility] Comment on above: Order Comment: Every 3 months while receiving Remicade. Performed By: #### L [id number] #### [facility] (DEFAULT) [address] [address] MCV (RBC) [Entitic vol] 95.9 fL Normal 79.6-97.7 [facility] Comment on above: Order Comment: Every 3 months while receiving Remicade. Performed By: #### L [id number] #### [facility] (DEFAULT) [address] [address] Mean Cell Hgb 32.1 pg Normal 25.9-33.9 [facility] Comment on above: Order Comment: Every 3 months while receiving Remicade. Performed By: #### L [id number] #### [facility] (DEFAULT) [address] [address] Mean Cell Hgb Conc 33.4 g/dL Normal 31.4-35.9 [facility] Comment on above: Order Comment: Every 3 months while receiving Remicade. Performed By: #### L [id number] #### [facility] (DEFAULT) [address] [address] Monocytes (Bld) [#/Vol] 0.71 10*3/uL Normal 0.22-0.87 [facility] Comment on above: Order Comment: Every 3 months while receiving Remicade. Performed By: #### L [id number] #### [facility] (DEFAULT) [address] [address] Monocytes/100 WBC (Bld) 6.1 % Normal [facility] Comment on above: Order Comment: Every 3 months while receiving Remicade. Performed By: #### L [id number] #### [facility] (DEFAULT) [address] [address] Nucleated RBC 0.0 /100 WBC Normal <=0.2 [facility] Comment on above: Order Comment: Every 3 months while receiving Remicade. Performed By: #### L [id number] #### [facility] (DEFAULT) [address] [address] Platelet mean volume (Bld) [Entitic vol] 12.2 fL Normal 8.5-12.2 [facility] Comment on above: Order Comment: Every 3 months while receiving Remicade. Performed By: #### L [id number] #### [facility] (DEFAULT) [address] [address] Platelets (Bld) [#/Vol] 218 10*3/uL Normal 150-393 [facility] Comment on above: Order Comment: Every 3 months while receiving Remicade. Performed By: #### L [id number] #### [facility] (DEFAULT) [address] [address] RBC (Bld) [#/Vol] 4.68 10*6/uL Normal 3.91-5.04 [facility] Comment on above: Order Comment: Every 3 months while receiving Remicade. Performed By: #### L [id number] #### [facility] (DEFAULT) [address] [address] RBC Distribution 13.1 % Normal 10.8-14.9 [facility] Comment on above: Order Comment: Every 3 months while receiving Remicade. Performed By: #### L [id number] #### [facility] (DEFAULT) [address] [address] Segs + Bands Auto 58.2 % Normal [facility] Comment on above: Order Comment: Every 3 months while receiving Remicade. Performed By: #### L [id number] #### [facility] (DEFAULT) [address] [address] Segs + Bands,Absolute Auto 6.78 K/uL Normal 1.64-7.28 [facility] Comment on above: Order Comment: Every 3 months while receiving Remicade. Performed By: #### L [id number] #### [facility] (DEFAULT) [address] [address] WBC (Bld) [#/Vol] 11.67 10*3/uL High 3.99-11.19 [facility] Comment on above: Order Comment: Every 3 months while receiving Remicade. Performed By: #### L [id number] #### [facility] (DEFAULT) [address] [address] Amphetamine Screen Ql (U)Ord ered By: Duran Loaiza on 08-26-2023 Amphetamines Ql (U) Negative Negative [facility] Barbiturates [Presence] in U rine by Screen methodOrdered By: Duran Loaiza on 08-26-2023 Barbiturates Screen Ql (U) Negative Negative [facility] Benzodiazepines Screen Ql (U )Ordered By: Duran Loaiza on 08-26-2023 Benzodiazepines Ql (U) Negative Negative [facility] Benzoylecgonine [Presence] i n Urine by Screen methodOrdered By: Duran Loaiza on 08-26-2023 Benzoylecgonine Screen Ql (U) Negative Negative [facility] Cannabinoids [Presence] in U rine by Screen methodOrdered By: Duran Loaiza on 08-26-2023 Cannabinoids Screen Ql (U) Positive Negative [facility] Comment on above: These are unconfirme d results and should not be used for legal purposes. Drug Cut-Off Concentration: AMPH 1000 ng/mL GT 200 ng/mL SRINATH 200 ng/mL COCM 300 ng/mL OP 300 ng/mL PCP 25 ng/mL THC 20 ng/mL Drug Screen,Urineon 08-26-19 24 Amphetamine Screen,Urine Negative Normal Negative [facility] Comment on above: Performed By: #### U ARLENE [facility] #### [address] Barbiturate Screen,Urine Negative Normal Negative [facility] Comment on above: Performed By: #### U ARLENE POWER #### [address] Benzodiazepines Screen,Urine Negative Normal Negative [facility] Comment on above: Performed By: #### U RDS, CG #### [address] Cannabinoid Screen,Urine Positive High Negative [facility] Comment on above: Result Comment: Thes e are unconfirmed results and should not be used for legal purposes. Drug Cut-Off Concentration: AMPH 1000 ng/mL GT 200 ng/mL SRINATH 200 ng/mL COCM 300 ng/mL OP 300 ng/mL PCP 25 ng/mL THC 20 ng/mL PERFORMED BY: [place] [address] PATHOLOGIST SQL APPLICATION DEVELOPER MIGDALIA MARTÍNEZ M.D. Performed By: #### U ARLENE, CG #### [address] Cocaine Screen,Urine Negative Normal Negative [facility] Comment on above: Performed By: #### U RDS, CG #### [address] Opiate Screen,Urine Negative Normal Negative [facility] Comment on above: Performed By: #### U RDS, CG #### [address] Phencyclidine Screen,Urine Negative Normal Negative [facility] Comment on above: Performed By: #### U RDS, CG #### [address] HCG ( test) IA.rapi d Ql (U)Ordered By: Duran Loaiza on 08-26-2023 HCG ( test) Ql (U) Negative [facility] HCG,Urineon 08-26-2023 Beta HCG ( test) Ql (U) Negative Normal [facility] Comment on above: Result Comment: PERF ORMED BY: [place] [address] PATHOLOGIST SQL APPLICATION DEVELOPER MIGDALIA MARTÍNEZ M.D. Performed By: #### U ARLENE, CG #### [address] [place] [address] [facility] Rick 08-26-2023 L Specimen: [id number] Received: 08/26/23 Status: LC Mathis Num: [id number] Spec Type: Surgical Subm Dr: Duran Loaiza MD Tissues: A Colon Biopsy (SM BOWL) Procedures: HE/2, Gross/Micro L4 Age/ Patient Sex Location Account Attending Physician Ayleen Ocasio N 43/F [id number] Duran Loaiza MD SPEC NUM: [id number] RECD: 08/26/23 STATUS: LC MATHIS NUM: [id number] SARAH: 08/26/23 DR: Duran Loaiza MD ENTERED: 08/26/[address] [facility] DR: SPEC TYPE: Surgical DEPT: S ENTERED BY: [id number] RECV BY: [id number] ORDERED: HE/2, Gross/Micro L4 ORDERED: HE/2, Gross/Micro L4 Pathological Diagnosis Small bowel, biopsies: - Fragments of unremarkable duodenal mucosa with prominent Batsheva's glands. - Negative for features of celiac disease. Clinical Information Abdominal pain, GERD, dyspepsia, bloating, rule out celiac Gross Description Received in formalin labeled with the patient's name, date of and small bowel are 2 pink-sin soft tissue fragments, 0.3 and 0.4 cm in greatest dimensions. Entirely submitted in one cassette labeled A1. Microscopic Description Sections examined support the above rendered diagnoses. CPT Codes 26514 Specimen: [id number] Received: 08/26/23 Status: LC Mathis Num: [id number] Spec Type: Surgical Subm Dr: Duran Loaiza MD Tissues: A Colon Biopsy ( BOW) Procedures: HE/2, Gross/Micro L4 Patient: NinfaAyleen Paradise [id number] (Continued) Signed (signature on file) Christina Charles MD 08/27/23 1038 Normal [facility] Opiates [Presence] in Urine by Screen methodOrdered By: Duran Loaiza on 08-26-2023 Opiates Screen Ql (U) Negative Negative [facility] Phencyclidine Screen Ql (U)O rdered By: Duran Loaiza on 08-26-2023 Phencyclidine Ql (U) Negative Negative [facility] IGP,APTIMA HPV,AGE GDLNon AGE GDLN ACOG TESTING Note . [facility] Comment on above: TESTS RESULT FLAG UN ITS REF RANGE LAB Clinician Provided Cytology Information Source.............Cervix;Endocervix No. of containers..01 ThinPrep Vial Age Puneet CRUZ [place]... FLAG LEGEND: L-Low Normal,H-High Normal,LL-Alert Low,HH-Alert High <-Panic Low,>-Panic High,A-Abnormal,AA-Critical Abnormal Performed at: 01 [address] [address] Radha Giang MD, HPV APTIMA Positive Abnormal Negative [facility] Comment on above: This nucleic acid am plification test detects fourteen high- risk HPV types (16,18,31,33,35,39,45,51,52,56,58,59,66,68) without differentiation. HPV GENOTYPE 16 Negative Negative [facility] HPV GENOTYPE 18,45 Negative Negative [facility] Comment on above: Performed at: =G - L [address] [id number] Leather Production Worker: Radha Giang MD, Phone: [phone] Performed at: [address] [id number] Leather Production Worker: Radha Giang MD, Phone: [phone] IGP, APTIMA HPV, RFX 16/18,45 Note . [facility] Comment on above: TESTS RESULT FLAG UN ITS REF RANGE LAB DIAGNOSIS: 02 NEGATIVE FOR INTRAEPITHELIAL LESION OR MALIGNANCY. Specimen adequacy: 02 Satisfactory for evaluation. Endocervical and/or squamous metaplastic cells (endocervical component) are present. Performed by: 02 Kee Sanderson, Transport Company Manager ([facility]) . 02 Note: Note 02 The Pap smear is a screening test designed to aid in the detection of premalignant and malignant conditions of the uterine cervix. It is not a diagnostic procedure and should not be used as the sole means of detecting cervical cancer. Both false-positive and false-negative reports do occur. Test Methodology: Note 02 This liquid based ThinPrep(R) pap test was screened with the use of an image guided system. HPV Genotype Reflex Note 02 Criteria met, see HPV Genotype results. FLAG LEGEND: L-Low Normal,H-High Normal,LL-Alert Low,HH-Alert High <-Panic Low,>-Panic High,A-Abnormal,AA-Critical Abnormal Performed at: [address] [place] [address] Radha Giang MD, Interpretation and review of laboratory results Abnormal [facility] BRUSH-SPATULA CERVIX END[facility] M[facility] ABDOMEN WO CONTon 024 CT ABDOMEN WO CONT CT ABDOMEN WO CONT CLINICAL INFORMATION: Left upper quadrant abdominal mass. TECHNIQUE: Abdominal CT without contrast. All CT scans at this facility use dose modulation, iterative reconstruction, and/or weight based dosing when appropriate to reduce radiation dose to as low as reasonably achievable. COMPARISON: Abdominal ultrasound 06/26/2023. FINDINGS LOWER CHEST: The lungs are clear. No pleural or pericardial effusion. HEPATOBILIARY: Unenhanced liver and gallbladder are within normal limits. No biliary dilation. PANCREAS: Unenhanced pancreas unremarkable. No pancreatic ductal dilation. SPLEEN: Calcified splenic granulomas. ADRENAL GLANDS: The unenhanced adrenal glands are within normal limits. KIDNEYS: Unenhanced kidneys unremarkable. No collecting system dilation. GI TRACT AND PERITONEUM: Small and large bowel are normal in caliber. VASCULATURE: Abdominal aorta is nonaneurysmal. Scattered aortoiliac calcifications present. LYMPH NODES: Not enlarged. MSK: Vertebral body heights and alignment maintained. No discrete soft tissue mass or abnormal fluid collection. IMPRESSION: * Unremarkable unenhanced abdominal CT. Approved by Resident Armen Palumbo DO on 07/25/2023 1:59 PM I, Orville Jin MD have personally reviewed the image(s) and agree with and/or edited the report Finalized by Orville Jin MD on 07/25/2023 2:41 PM Normal [facility] CBC AND ELECTRONIC DIFFon Basophils (Bld) [#/Vol] 0.05 10*3/uL 0.00 - 0.15 K/uL [facility] Basophils/100 WBC (Bld) 0.4 % [facility] Differential cell count method Nom (Bld) Electronic Differential [facility] Eosinophils (Bld) [#/Vol] K/uL 0.00 - 0.42 K/uL [facility] Eosinophils/100 WBC (Bld) 0.2 % [facility] Erythrocyte distribution width (RBC) [Ratio] 15.2 % High 10.8 - 14.9 % [facility] Hematocrit (Bld) [Volume fraction] 45.7 % High 34.9 - 44.3 % [facility] Hemoglobin (Bld) [Mass/Vol] 15.0 g/dL 11.4 - 15.2 g/dL [facility] Immature granulocytes (Bld) [#/Vol] 0.06 10*3/uL NINF - 0.08 K/uL [facility] Immature granulocytes/100 WBC (Bld) 0.5 % [facility] Interpretation and review of laboratory results Abnormal [facility] Lymphocytes (Bld) [#/Vol] 1.81 10*3/uL 1.16 - 3.51 K/uL [facility] Lymphocytes/100 WBC (Bld) 15.1 % [facility] MCH (RBC) [Entitic mass] 32.1 pg 25.9 - 33.9 pg [facility] MCHC (RBC) [Mass/Vol] 32.8 g/dL 31.4 - 35.9 g/dL [facility] MCV (RBC) [Entitic vol] 97.9 fL High 79.6 - 97.7 fL [facility] Monocytes (Bld) [#/Vol] 0.48 10*3/uL 0.22 - 0.87 K/uL [facility] Monocytes/100 WBC (Bld) 4.0 % [facility] Neutrophils (Bld) [#/Vol] 9.56 10*3/uL High 1.64 - 7.28 K/uL [facility] Nucleated RBC/100 WBC (Bld) [Ratio] 0.0 % NINF [facility] Platelet mean volume (Bld) [Entitic vol] 12.0 fL 8.5 - 12.2 fL [facility] Platelets (Bld) [#/Vol] 212 10*3/uL 150 - 393 K/uL [facility] RBC (Bld) [#/Vol] 4.67 10*6/uL [facility] Segmented neutrophils/100 WBC (Bld) 79.8 % [facility] WBC (Bld) [#/Vol] 11.98 10*3/uL High 3.99 - 11 .19 K/uL [facility] HEPATIC FUNCTION PANELon Albumin [Mass/Vol] 4.6 g/dL 3.5 - 5.0 g/dL [facility] ALP [Catalytic activity/Vol] 64 U/L 32 - 126 U/L [facility] ALT [Catalytic activity/Vol] 8 U/L Low 9 - 48 U/L [facility] AST [Catalytic activity/Vol] 15 U/L 10 - 39 U/L [facility] Bilirubin [Mass/Vol] 0.8 mg/dL NINF - 1.5 mg/dL [facility] Bilirubin.direct [Mass/Vol] 0.1 mg/dL NINF - 0.3 mg/dL [facility] Interpretation and review of laboratory results Abnormal [facility] Protein [Mass/Vol] 7.7 g/dL 6.4 - 8.3 g/dL [facility] BUN CREAon 04-28-2023 Creatinine [Mass/Vol] 0.90 mg/dL 0.50 - 1.20 mg/dL [facility] eGFR, CKD-EPI, Female 80 - PINF [facility] Comment on above: Reported eGFR is bas ed on the CKD-EPI 2020 equation using creatinine, age, and sex. Urea nitrogen [Mass/Vol] 10 mg/dL 7 - 25 mg/dL [facility] Urea nitrogen/Creatinine [Mass ratio] 11 mg/mg [facility] C REACTIVE PROTEINon 023 CRP High sensitivity method [Mass/Vol] 0.76 mg/L NINF - 10.00 mg/L [facility] Interpretation and review of laboratory results Normal [facility] No Panel Informationon 04-28 [facility] CBC AND ELECTRONIC DIFFon Basophils (Bld) [#/Vol] K/uL 0.00 - 0.15 K/uL [facility] Basophils/100 WBC (Bld) 0.2 % [facility] Differential cell count method Nom (Bld) Electronic Differential [facility] Eosinophils (Bld) [#/Vol] K/uL 0.00 - 0.42 K/uL [facility] Eosinophils/100 WBC (Bld) 0.0 % [facility] Erythrocyte distribution width (RBC) [Ratio] 14.0 % 10.8 - 14.9 % [facility] Hematocrit (Bld) [Volume fraction] 43.8 % 34.9 - 44.3 % [facility] Hemoglobin (Bld) [Mass/Vol] 14.3 g/dL 11.4 - 15.2 g/dL [facility] Immature granulocytes (Bld) [#/Vol] K/uL NINF - 0.08 K/uL [facility] Immature granulocytes/100 WBC (Bld) 0.3 % [facility] Interpretation and review of laboratory results Abnormal [facility] Lymphocytes (Bld) [#/Vol] 1.33 10*3/uL 1.16 - 3.51 K/uL [facility] Lymphocytes/100 WBC (Bld) 13.4 % [facility] MCH (RBC) [Entitic mass] 30.6 pg 25.9 - 33.9 pg [facility] MCHC (RBC) [Mass/Vol] 32.6 g/dL 31.4 - 35.9 g/dL [facility] MCV (RBC) [Entitic vol] 93.8 fL 79.6 - 97.7 fL [facility] Monocytes (Bld) [#/Vol] 0.26 10*3/uL 0.22 - 0.87 K/uL [facility] Monocytes/100 WBC (Bld) 2.6 % [facility] Neutrophils (Bld) [#/Vol] 8.26 10*3/uL High 1.64 - 7.28 K/uL [facility] Nucleated RBC/100 WBC (Bld) [Ratio] 0.0 % [facility] Platelet mean volume (Bld) [Entitic vol] 12.2 fL 8.5 - 12.2 fL [facility] Platelets (Bld) [#/Vol] 210 10*3/uL 150 - 393 K/uL [facility] RBC (Bld) [#/Vol] 4.67 10*6/uL [facility] Segmented neutrophils/100 WBC (Bld) 83.5 % [facility] WBC (Bld) [#/Vol] 9.90 10*3/uL 3.99 - 11. 19 K/uL [facility] Chronic hepatitis differenti ation between hepatitis B and C virus panelOrdered By: Arlene Blake on 03-24-2023 HBV core IgG+IgM Ql (S) Negative Negative [facility] HBV surface Ab IA Ql (S) Positive Abnormal Negative [facility] Comment on above: A positive result in dicates immunity through past immunization or prior infection. HBV surface Ag Ql (S) Negative Negative [facility] HCV Ab Ql (S) Negative Negative [facility] Interpretation and review of laboratory results Abnormal [facility] HEPATIC FUNCTION PANELon Albumin [Mass/Vol] 4.9 g/dL 3.5 - 5.0 g/dL [facility] ALP [Catalytic activity/Vol] 76 U/L 32 - 126 U/L [facility] ALT [Catalytic activity/Vol] 12 U/L 9 - 48 U/L [facility] AST [Catalytic activity/Vol] 14 U/L 10 - 39 U/L [facility] Bilirubin [Mass/Vol] 0.8 mg/dL NINF - 1.5 mg/dL [facility] Bilirubin.direct [Mass/Vol] 0.2 mg/dL NINF - 0.3 mg/dL [facility] Interpretation and review of laboratory results Normal [facility] Protein [Mass/Vol] 7.6 g/dL 6.4 - 8.3 g/dL [facility] IMMUNOGLOBULINS IGG IGA IGMo n 03-24-2023 IgA [Mass/Vol] 166 mg/dL 66 - 433 mg/dL [facility] IgG [Mass/Vol] 1091 mg/dL 600 - 1714 mg/dL [facility] IgM [Mass/Vol] 319 mg/dL High 45 - 281 mg/dL [facility] Interpretation and review of laboratory results Abnormal [facility] No Panel Informationon 03-24 [facility] SPE SERUM TOTAL PROTEINon Interpretation and review of laboratory results Normal [facility] Protein [Mass/Vol] 7.2 g/dL 6.4 - 8.3 g/dL [facility] CBC AND ELECTRONIC DIFFon Basophils (Bld) [#/Vol] [facility] Basophils/100 WBC (Bld) [facility] Eosinophils (Bld) [#/Vol] [facility] Eosinophils/100 WBC (Bld) [facility] Erythrocyte distribution width (RBC) [Ratio] 13.5 % 10.8 - 14.9 % [facility] Hematocrit (Bld) [Volume fraction] 43.6 % 34.9 - 44.3 % [facility] Hemoglobin (Bld) [Mass/Vol] 14.6 g/dL 11.4 - 15.2 g/dL [facility] Immature granulocytes (Bld) [#/Vol] [facility] Immature granulocytes/100 WBC (Bld) [facility] Lymphocytes (Bld) [#/Vol] [facility] Lymphocytes/100 WBC (Bld) [facility] MCH (RBC) [Entitic mass] 32.0 pg 25.9 - 33.9 pg [facility] MCHC (RBC) [Mass/Vol] 33.5 g/dL 31.4 - 35.9 g/dL [facility] MCV (RBC) [Entitic vol] 95.6 fL 79.6 - 97.7 fL [facility] Monocytes (Bld) [#/Vol] [facility] Monocytes/100 WBC (Bld) [facility] Neutrophils/100 WBC (Bld) [facility] Platelet mean volume (Bld) [Entitic vol] 11.8 fL 8.5 - 12.2 fL [facility] Platelets (Bld) [#/Vol] 235 10*3/uL 150 - 393 K/uL [facility] RBC (Bld) [#/Vol] 4.56 10*6/uL [facility] Segmented neutrophils/100 WBC (Bld) [facility] WBC (Bld) [#/Vol] 8.00 10*3/uL 3.99 - 11. 19 K/uL [facility] HEPATIC FUNCTION PANELon Albumin [Mass/Vol] 4.4 g/dL 3.5 - 5.0 g/dL [facility] ALP [Catalytic activity/Vol] 79 U/L 32 - 126 U/L [facility] ALT [Catalytic activity/Vol] 17 U/L 9 - 48 U/L [facility] AST [Catalytic activity/Vol] 23 U/L 10 - 39 U/L [facility] Bilirubin [Mass/Vol] 1.2 mg/dL NINF - 1.5 mg/dL [facility] Bilirubin.direct [Mass/Vol] 0.2 mg/dL NINF - 0.3 mg/dL [facility] Interpretation and review of laboratory results Normal [facility] Protein [Mass/Vol] 7.3 g/dL 6.4 - 8.3 g/dL [facility] MANUAL DIFFon 12-10-2022 Abs Eos Manual 0.00 [facility] Band form neutrophils/100 WBC (Bld) 0.0 % [facility] Basophils (Bld) [#/Vol] 0.00 10*3/uL 0.00 - 0.15 K/uL [facility] Basophils/100 WBC (Bld) 0.0 % [facility] Differential cell count method Nom (Bld) Manual Differential [facility] Echinocytes Present Abnormal (none) [facility] Eosinophils/100 WBC (Bld) 0.0 % [facility] Interpretation and review of laboratory results Abnormal [facility] Lymphocytes (Bld) [#/Vol] 2.19 10*3/uL 1.16 - 3.51 K/uL [facility] Lymphocytes/100 WBC (Bld) 27.4 % [facility] Monocytes (Bld) [#/Vol] 0.62 10*3/uL 0.22 - 0.87 K/uL [facility] Monocytes/100 WBC (Bld) 7.7 % [facility] Neutrophils (Bld) [#/Vol] 5.19 10*3/uL 1.64 - 7.28 K/uL [facility] Platelets Estimate (Bld) [#/Vol] Automated platelet count confirmed by manual slide review [facility] RBC morphology finding Nom (Bld) RBC INDICES CONFIRMED WITH MANUAL SLIDE REVIEW [facility] Segmented neutrophils/100 WBC (Bld) 64.9 % [facility] No Panel Informationon 12-10 [facility] CBC AND ELECTRONIC DIFFon Basophils (Bld) [#/Vol] K/uL 0.00 - 0.15 K/uL [facility] Basophils/100 WBC (Bld) 0.3 % [facility] Differential cell count method Nom (Bld) Electronic Differential [facility] Eosinophils (Bld) [#/Vol] K/uL 0.00 - 0.42 K/uL [facility] Eosinophils/100 WBC (Bld) 0.0 % [facility] Erythrocyte distribution width (RBC) [Ratio] 15.1 % High 10.8 - 14.9 % [facility] Hematocrit (Bld) [Volume fraction] 46.0 % High 34.9 - 44.3 % [facility] Hemoglobin (Bld) [Mass/Vol] 15.6 g/dL High 11.4 - 15.2 g/dL [facility] Immature granulocytes (Bld) [#/Vol] 0.05 10*3/uL NINF - 0.08 K/uL [facility] Immature granulocytes/100 WBC (Bld) 0.4 % [facility] Interpretation and review of laboratory results Abnormal [facility] Lymphocytes (Bld) [#/Vol] 1.93 10*3/uL 1.16 - 3.51 K/uL [facility] Lymphocytes/100 WBC (Bld) 17.1 % [facility] MCH (RBC) [Entitic mass] 32.1 pg 25.9 - 33.9 pg [facility] MCHC (RBC) [Mass/Vol] 33.9 g/dL 31.4 - 35.9 g/dL [facility] MCV (RBC) [Entitic vol] 94.7 fL 79.6 - 97.7 fL [facility] Monocytes (Bld) [#/Vol] 0.24 10*3/uL 0.22 - 0.87 K/uL [facility] Monocytes/100 WBC (Bld) 2.1 % [facility] Neutrophils (Bld) [#/Vol] 9.01 10*3/uL High 1.64 - 7.28 K/uL [facility] Nucleated RBC/100 WBC (Bld) [Ratio] 0.0 % [facility] Platelet mean volume (Bld) [Entitic vol] 11.9 fL 8.5 - 12.2 fL [facility] Platelets (Bld) [#/Vol] 236 10*3/uL 150 - 393 K/uL [facility] RBC (Bld) [#/Vol] 4.86 10*6/uL [facility] Segmented neutrophils/100 WBC (Bld) 80.1 % [facility] WBC (Bld) [#/Vol] 11.26 10*3/uL High 3.99 - 11 .19 K/uL [facility] HEPATIC FUNCTION PANELon Albumin [Mass/Vol] 4.9 g/dL 3.5 - 5.0 g/dL [facility] ALP [Catalytic activity/Vol] 68 U/L 32 - 126 U/L [facility] ALT [Catalytic activity/Vol] 36 U/L 9 - 48 U/L [facility] AST [Catalytic activity/Vol] 20 U/L 10 - 39 U/L [facility] Bilirubin [Mass/Vol] 0.9 mg/dL NINF - 1.5 mg/dL [facility] Bilirubin.direct [Mass/Vol] 0.1 mg/dL NINF - 0.3 mg/dL [facility] Interpretation and review of laboratory results Normal [facility] Protein [Mass/Vol] 8.0 g/dL 6.4 - 8.3 g/dL [facility] CBC AND ELECTRONIC DIFFon Basophils (Bld) [#/Vol] 0.06 10*3/uL 0.00 - 0.15 K/uL [facility] Basophils/100 WBC (Bld) 0.8 % [facility] Differential cell count method Nom (Bld) Electronic Differential [facility] Eosinophils (Bld) [#/Vol] 0.14 10*3/uL 0.00 - 0.42 K/uL [facility] Eosinophils/100 WBC (Bld) 1.9 % [facility] Erythrocyte distribution width (RBC) [Ratio] 13.6 % 10.8 - 14.9 % [facility] Hematocrit (Bld) [Volume fraction] 42.5 % 34.9 - 44.3 % [facility] Hemoglobin (Bld) [Mass/Vol] 14.1 g/dL 11.4 - 15.2 g/dL [facility] Immature granulocytes (Bld) [#/Vol] K/uL NINF - 0.08 K/uL [facility] Immature granulocytes/100 WBC (Bld) 0.3 % [facility] Lymphocytes (Bld) [#/Vol] 2.89 10*3/uL 1.16 - 3.51 K/uL [facility] Lymphocytes/100 WBC (Bld) 38.4 % [facility] MCH (RBC) [Entitic mass] 31.2 pg 25.9 - 33.9 pg [facility] MCHC (RBC) [Mass/Vol] 33.2 g/dL 31.4 - 35.9 g/dL [facility] MCV (RBC) [Entitic vol] 94.0 fL 79.6 - 97.7 fL [facility] Monocytes (Bld) [#/Vol] 0.53 10*3/uL 0.22 - 0.87 K/uL [facility] Monocytes/100 WBC (Bld) 7.0 % [facility] Neutrophils (Bld) [#/Vol] 3.89 10*3/uL 1.64 - 7.28 K/uL [facility] Nucleated RBC/100 WBC (Bld) [Ratio] 0.0 % [facility] Platelet mean volume (Bld) [Entitic vol] 11.7 fL 8.5 - 12.2 fL [facility] Platelets (Bld) [#/Vol] 196 10*3/uL 150 - 393 K/uL [facility] RBC (Bld) [#/Vol] 4.52 10*6/uL [facility] Segmented neutrophils/100 WBC (Bld) 51.6 % [facility] WBC (Bld) [#/Vol] 7.53 10*3/uL 3.99 - 11. 19 K/uL [facility] HEPATIC FUNCTION PANELon Albumin [Mass/Vol] 4.1 g/dL 3.5 - 5.0 g/dL [facility] ALP [Catalytic activity/Vol] 64 U/L 32 - 126 U/L [facility] ALT [Catalytic activity/Vol] 9 U/L 9 - 48 U/L [facility] AST [Catalytic activity/Vol] 13 U/L 10 - 39 U/L [facility] Bilirubin [Mass/Vol] 0.5 mg/dL [facility] - 1.5 mg/dL [facility] Bilirubin.direct [Mass/Vol] 0.1 mg/dL [facility] - 0.3 mg/dL [facility] Interpretation and review of laboratory results Normal [facility] Protein [Mass/Vol] 6.7 g/dL 6.4 - 8.3 g/dL [facility] CBC AND ELECTRONIC DIFFon Basophils (Bld) [#/Vol] 0.06 10*3/uL 0.00 - 0.15 K/uL [facility] Basophils/100 WBC (Bld) 0.8 % [facility] Differential cell count method Nom (Bld) Electronic Differential [facility] Eosinophils (Bld) [#/Vol] 0.12 10*3/uL 0.00 - 0.42 K/uL [facility] Eosinophils/100 WBC (Bld) 1.7 % [facility] Erythrocyte distribution width (RBC) [Ratio] 13.6 % 10.8 - 14.9 % [facility] Hematocrit (Bld) [Volume fraction] 43.2 % 34.9 - 44.3 % [facility] Hemoglobin (Bld) [Mass/Vol] 14.2 g/dL 11.4 - 15.2 g/dL [facility] Immature granulocytes (Bld) [#/Vol] 10*3/uL <=0.08 K/uL [facility] Immature granulocytes/100 WBC (Bld) 0.3 % [facility] Lymphocytes (Bld) [#/Vol] 2.40 10*3/uL 1.16 - 3.51 K/uL [facility] Lymphocytes/100 WBC (Bld) 33.3 % [facility] MCH (RBC) [Entitic mass] 30.7 pg 25.9 - 33.9 pg [facility] MCHC (RBC) [Mass/Vol] 32.9 g/dL 31.4 - 35.9 g/dL [facility] MCV (RBC) [Entitic vol] 93.3 fL 79.6 - 97.7 fL [facility] Monocytes (Bld) [#/Vol] 0.55 10*3/uL 0.22 - 0.87 K/uL [facility] Monocytes/100 WBC (Bld) 7.6 % [facility] Neutrophils (Bld) [#/Vol] 4.06 10*3/uL 1.64 - 7.28 K/uL [facility] Nucleated RBC/100 WBC (Bld) [Ratio] 0.0 % <=0.2 /100 WBC [facility] Platelet mean volume (Bld) [Entitic vol] 12.0 fL 8.5 - 12.2 fL [facility] Platelets (Bld) [#/Vol] 203 10*3/uL 150 - 393 K/uL [facility] RBC (Bld) [#/Vol] 4.63 10*6/uL [facility] Segmented neutrophils/100 WBC (Bld) 56.3 % [facility] WBC (Bld) [#/Vol] 7.21 10*3/uL 3.99 - 11. 19 K/uL [facility] HEPATIC FUNCTION PANELon Albumin [Mass/Vol] 4.2 g/dL 3.5 - 5.0 g/dL [facility] ALP [Catalytic activity/Vol] 68 U/L 32 - 126 U/L [facility] ALT [Catalytic activity/Vol] 11 U/L 9 - 48 U/L [facility] AST [Catalytic activity/Vol] 18 U/L 10 - 39 U/L [facility] Bilirubin [Mass/Vol] 0.9 mg/dL <1.5 [facility] Bilirubin.direct [Mass/Vol] 0.1 mg/dL <0.3 [facility] Interpretation and review of laboratory results Normal [facility] Protein [Mass/Vol] 6.7 g/dL 6.4 - 8.3 g/dL [facility] CBC AND ELECTRONIC DIFFon Basophils (Bld) [#/Vol] 0.05 10*3/uL 0.00 - 0.15 K/uL [facility] Basophils/100 WBC (Bld) 0.6 % [facility] DIFF STATUS Electronic Differential [facility] Eosinophils (Bld) [#/Vol] 0.18 10*3/uL 0.00 - 0.42 K/uL [facility] Eosinophils/100 WBC (Bld) 2.2 % [facility] Erythrocyte distribution width (RBC) [Ratio] 13.7 % 10.8 - 14.9 % [facility] Hematocrit (Bld) [Volume fraction] 43.6 % 34.9 - 44.3 % [facility] Hemoglobin (Bld) [Mass/Vol] 14.8 g/dL 11.4 - 15.2 g/dL [facility] Immature granulocytes (Bld) [#/Vol] 10*3/uL <=0.09 K/uL [facility] Immature granulocytes/100 WBC (Bld) 0.2 % [facility] Lymphocytes (Bld) [#/Vol] 2.49 10*3/uL 1.16 - 3.51 K/uL [facility] Lymphocytes/100 WBC (Bld) 30.3 % [facility] MCH (RBC) [Entitic mass] 31.6 pg 25.9 - 33.9 pg [facility] MCHC (RBC) [Mass/Vol] 33.9 g/dL 31.4 - 35.9 g/dL [facility] MCV (RBC) [Entitic vol] 93.2 fL 79.6 - 97.7 fL [facility] Monocytes (Bld) [#/Vol] 0.67 10*3/uL 0.22 - 0.87 K/uL [facility] Monocytes/100 WBC (Bld) 8.2 % [facility] Neutrophils (Bld) [#/Vol] 4.81 10*3/uL 1.64 - 7.28 K/uL [facility] Nucleated RBC/100 WBC (Bld) [Ratio] 0.0 % <=0.2 /100 WBC [facility] Platelet mean volume (Bld) [Entitic vol] 11.6 fL 8.5 - 12.2 fL [facility] Platelets (Bld) [#/Vol] 206 10*3/uL 150 - 393 K/uL [facility] RBC (Bld) [#/Vol] 4.68 10*6/uL [facility] Segmented neutrophils/100 WBC (Bld) 58.5 % [facility] WBC (Bld) [#/Vol] 8.22 10*3/uL 3.99 - 11. 19 K/uL [facility] HEPATIC FUNCTION PANELon Albumin [Mass/Vol] 4.1 g/dL 3.5 - 5.0 g/dL [facility] ALP [Catalytic activity/Vol] 60 U/L 32 - 126 U/L [facility] ALT [Catalytic activity/Vol] 10 U/L 9 - 48 U/L [facility] AST [Catalytic activity/Vol] 14 U/L 14 - 40 U/L [facility] Bilirubin [Mass/Vol] 1.2 mg/dL <1.5 [facility] Bilirubin.direct [Mass/Vol] 0.2 mg/dL <0.3 [facility] Interpretation and review of laboratory results Normal [facility] Protein [Mass/Vol] 6.6 g/dL 6.4 - 8.3 g/dL [facility] CBC and Differentialon 07-27 Abs Baso <0.03 Normal <0.11 [facility] Comment on above: Performed By: #### C MP, CBCDIF #### [facility] [place] [facility] [address] [place] [id number] Abs Door 0.56 k/uL Normal <0.87 [facility] Comment on above: Performed By: #### C MP, CBCDIF #### [facility] [place] [facility] [address] [place], [place] [address] Abs Neut 7.61 k/uL High 1.45-7.50 [facility] Comment on above: Performed By: #### C MP, CBCDIF #### [facility] [place] [facility] [address] [place], [place] [address] Absolute nRBC <0.01 Normal <0.01 [facility] Comment on above: Performed By: #### C MP, CBCDIF #### [facility] [place] [facility] [address] [place], [place] [address] Basophils/100 WBC (Bld) 0.2 % Normal [facility] Comment on above: Performed By: #### C MP, CBCDIF #### [place] [id number] [place] [phone] DTYPE Auto Diff Normal [facility] Comment on above: Performed By: #### C MP, CBCDIF #### [place] [address] [place] [phone] Eosinophils (Bld) [#/Vol] 0.18 10*3/uL Normal <0.46 [facility] Comment on above: Performed By: #### C MP, CBCDIF #### [place] [phone] Eosinophils/100 WBC (Bld) 1.9 % Normal [facility] Comment on above: Performed By: #### C MP, CBCDIF #### [place] [phone] Erythrocyte distribution width (RBC) [Ratio] 14.0 % Normal 11.5-15.0 [facility] Comment on above: Performed By: #### C MP, CBCDIF #### [place] [phone] Hematocrit (Bld) [Volume fraction] 34.8 % Low 36.0-46.0 [facility] Comment on above: Performed By: #### C MP, CBCDIF #### [place] [address] [place] [phone] Hemoglobin (Bld) [Mass/Vol] 11.9 g/dL Normal 11.5-15.5 [facility] Comment on above: Performed By: #### C MP, CBCDIF #### [place] [address] [place] [phone] Lymphocytes (Bld) [#/Vol] 1.06 10*3/uL Normal 1.00-4.00 [facility] Comment on above: Performed By: #### C MP, CBCDIF #### [facility] [address] [place], [place] [address] Lymphocytes/100 WBC (Bld) 11.2 % Normal [facility] Comment on above: Performed By: #### C MP, CBCDIF #### [facility] [address] [place], [place] [address] MCH (RBC) [Entitic mass] 30.7 pG Normal 26.0-34.0 [facility] Comment on above: Performed By: #### C MP, CBCDIF #### [place] [phone] [place] [address] MCHC (RBC) [Mass/Vol] 34.2 g/dL Normal 30.5-36.0 [facility] Comment on above: Performed By: #### C MP, CBCDIF #### [place] [phone] [place] [address] MCV (RBC) [Entitic vol] 89.9 fL Normal 80.0-100.0 [facility] Comment on above: Performed By: #### C MP, CBCDIF #### [place] [address] [place], [place] [address] Monocytes/100 WBC (Bld) 5.9 % Normal [facility] Comment on above: Performed By: #### C MP, CBCDIF #### [facility] [address] [place], [place] [address] Neutrophils/100 WBC (Bld) 80.8 % Normal [facility] Comment on above: Performed By: #### C MP, CBCDIF #### [place] [address] [place] [address] NRBCs 0.0 /100 WBC Normal 0 [facility] Comment on above: Performed By: #### C MP, CBCDIF #### [place] [address] [place], [place] [address] Platelet mean volume (Bld) [Entitic vol] 10.6 fL Normal 9.0-12.7 [facility] Comment on above: Performed By: #### C MP, CBCDIF #### [place] [address] [place], [place] [address] Platelets (Bld) [#/Vol] 342 10*3/uL Normal 150-400 [facility] Comment on above: Performed By: #### C MP, CBCDIF #### [address] [address] RBC (Bld) [#/Vol] 3.87 10*6/uL Low 3.90-5.20 [facility] Comment on above: Performed By: #### C MP, CBCDIF #### [address] [address] WBC (Bld) [#/Vol] 9.43 10*3/uL Normal 3.70-11.00 [facility] Comment on above: Performed By: #### C MP, CBCDIF #### [address] [address] Comp Metabolic Panelon 07-27 Albumin [Mass/Vol] 3.6 g/dL Low 3.9-4.9 [facility] Comment on above: Performed By: #### C MP, CBCDIF #### [place] [address] [place], [place] [address] ALP [Catalytic activity/Vol] 85 U/L Normal 34-123 [facility] Comment on above: Performed By: #### C MP, CBCDIF #### [place] [address] [place], [place] [address] ALT [Catalytic activity/Vol] 10 U/L Normal 7-38 [facility] Comment on above: Performed By: #### C MP, CBCDIF #### [address] [address] Anion gap [Moles/Vol] 12 mmol/L Normal 9-18 [facility] Comment on above: Performed By: #### C MP, CBCDIF #### [facility] [place] [facility] [address] [place], [place] [address] AST [Catalytic activity/Vol] 13 U/L Normal 13-35 [facility] Comment on above: Performed By: #### C MP, CBCDIF #### [facility] [address] [place], [place] [address] Bilirubin [Mass/Vol] 0.2 mg/dL Normal 0.2-1.3 [facility] Comment on above: Performed By: #### C MP, CBCDIF #### [facility] [address] [place] [address] Calcium [Mass/Vol] 8.7 mg/dL Normal 8.5-10.2 [facility] Comment on above: Performed By: #### C MP, CBCDIF #### [facility] [address] [place], [place] [address] Chloride [Moles/Vol] 104 mmol/L Normal 97-105 [facility] Comment on above: Performed By: #### C MP, CBCDIF #### [facility] [address] [place], [place] [address] CO2 [Moles/Vol] 22 mmol/L Normal 22-30 [facility] Comment on above: Performed By: #### C MP, CBCDIF #### [facility] [place] [facility] [address] [place], [place] [address] Creatinine [Mass/Vol] 0.78 mg/dL Normal 0.58-0.96 [facility] Comment on above: Performed By: #### C MP, CBCDIF #### [facility] [place] [facility] [address] [place], [place] [address] eGFR- Amer. >60 Normal [facility] Comment on above: Performed By: #### C RUTHANN, CBCDIF #### [facility] [place] [facility] [address] [place], [place] [address] GFR/1.73 sq M predicted among non-blacks MDRD (S/P/Bld) [Vol rate/Area] mL/min/{1.73_m2} Normal [facility] Comment on above: Result Comment: eGFR (Estimated GFR) Units of measure: mL/min/1.73 meters squared eGFR is derived from the reexpressed MDRD Study equation using the following parameters: serum creatinine, age, gender and race. The creatinine assay has been calibrated to be traceable to IDMS. An eGFR <60 mL/min/1.73m2 for >3 months is consistent with chronic kidney disease. Refer to KDOQI guidelines for clinical interpretation. In patients with unstable renal function, e.g. those with acute kidney injury, the eGFR may not accurately reflect actual GFR. Performed By: #### C RUTHANN, CBCDIF #### [facility] [place] [facility] [address], [place] [address] Glucose [Mass/Vol] 142 mg/dL High 74-99 [facility] Comment on above: Result Comment: The [place] Diabetes [employer] (ADA) provides guidance for cutoff values for fasting glucose and random glucose. The ADA defines fasting as no caloric intake for at least 8 hours. Fasting plasma glucose results between 100 to 125 mg/dL indicate increased risk for diabetes (prediabetes). Fasting plasma glucose results greater than or equal to 126 mg/dL meet the criteria for diagnosis of diabetes. In the absence of unequivocal hyperglycemia, results should be confirmed by repeat testing. In a patient with classic symptoms of hyperglycemia or hyperglycemic crisis, random plasma glucose results greater than or equal to 200 mg/dL meet the criteria for diagnosis of diabetes. Reference: Standards of Medical Care in Diabetes 2016, [place] [employer] Association. Diabetes Care. 2016.39(Suppl 1). Performed By: #### C RUTHANN, CBCDIF #### [facility] [place] [facility] [address] [place], [place] [address] Potassium [Moles/Vol] 3.6 mmol/L Low 3.7-5.1 [facility] Comment on above: Performed By: #### C MP, CBCDIF #### [facility] [place] [facility] [address] [place] [address] Protein [Mass/Vol] 6.8 g/dL Normal 6.3-8.0 [facility] Comment on above: Performed By: #### C MP, CBCDIF #### [facility] [address] [place] [address] Sodium [Moles/Vol] 138 mmol/L Normal 136-144 [facility] Comment on above: Performed By: #### C MP, CBCDIF #### [facility] [address] [place] [address] Urea nitrogen [Mass/Vol] 9 mg/dL Normal 7-21 [facility] Comment on above: Performed By: #### C MP, CBCDIF #### [facility] [address] [place] [address] ED NOTEon 07-27-2019 ED NOTE HNO ID: [id number] Author: NEDA Frank (Ct) Service: Emergency Medicine Author Type: Clinical Cutter Operator Helper Type: ED Notes Filed: 07/30/2019 6:02 PM Note Text: Emergency Services: ED Call Back Questionnaire SERVICE DATE: 07/27/2019 Are you feeling better? No Any questions about discharge instructions and follow-up care? No Were you able to make a follow up appointment? Yes Do you have any further questions? No Is there anything that we could have done differently to improve your ED visit? No SIGNATURE: NEAD Frank PATIENT NAME: Ayleen Ocasio DATE: July 30, 2019 TIME: 6:02 PM Normal [facility] ED NOTE HNO ID: [id number] Author: Milind PerlaRn) REJI Martínez Service: Emergency Medicine Author Type: Registered Nurse Type: ED Notes Filed: 07/27/2019 2:13 PM Note Text: Pt reports to ED c/o a MCKEE and LUQ ABD pain for 1 week. 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 Denies trauma, was seen at [facility] 1 weeks ago and was infomred to folow up with a larger hospital for the MCKEE. ABC's intact. Pt is A AND O x 3.No signs of acute distress. No shortness of breath noted, respirations even and unlabored, CTAB. Skin acyanotic, warm and dry. Bilaterally strong in all extremities. Denies fever, NVD. Denies Hx of UTI, kidney stones or kidney disease. Pupils reactive to light OD pupil 1mm larger than OS d/t cataract surgery Admits to having chills Normal [facility] ED PROV NOTEon 07-27-2019 ED PROV NOTE HNO ID: [id number] Author: Guy Hayward MD Service: Emergency Medicine Author Type: Physician Type: ED Provider Notes Filed: 07/27/2019 7:35 PM Note Text: ED Provider Note Patient Name: Ayleen Ocasio SERVICE DATE: 07/27/19 History Patient presents with: Headache: Pt presents to ED with c/o headache left flank pain x one week. Flank Pain HPI 39 year old female with history of Bechet's disease here with a headache and left flank pain. 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 She received her Remicade shot about just under 2 weeks ago after that developed some chills and fevers which got better after going on some steroids. However she subsequently developed a headache for the last week or so which she describes as tightness and fullness at the base of her skull, but with no associated vision changes, nausea, vomiting, focal numbness or weakness. Additionally she developed some pain in her left flank area and under her left rib cage. She states she was seen at outside ED yesterday and at that time a CT abdomen pelvis was done which showed a colitis for which she was put on antibiotics. However she states army officer referred her here for further symptom management. Prior abdominal surgeries include a tubal ligation. She denies fevers. PAST MEDICAL HISTORY Diagnosis Date - 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HCC) PAST SURGICAL HISTORY Procedure Laterality Date - HYSTERECTOMY HX FH: reviewed and non-contributory Social History Tobacco Use - Smoking status: Current Every Day Smoker Packs/day: 1.00 Years: 20.00 Pack years: 20.00 Types: Cigarettes - Smokeless tobacco: Never Used Substance and Sexual Activity - Alcohol use: Never Frequency: Never - Drug use: Yes Types: Marijuana - Sexual activity: Not on file ALLERGIES Allergen Reactions - Ciprofloxacin Contraindication-Med ical Surgical Causes oral ulcers - Penicillins Contraindication-Med ical Surgical Causes oral ulcers Review of Systems Constitutional: Negative for chills and fever. HENT: Negative for congestion and sore throat. Eyes: Negative for visual disturbance (no change in chronic vision changes). Respiratory: Negative for cough and shortness of breath. Cardiovascular: Negative for chest pain. Gastrointestinal: Positive for abdominal pain. Negative for diarrhea, nausea and vomiting. Genitourinary: Positive for flank pain. Negative for dysuria. Musculoskeletal: Negative for back pain. Skin: Negative for rash. Neurological: Positive for headaches. Negative for dizziness, speech difficulty and numbness. Psychiatric/Behavior al: Negative for agitation and confusion. Physical Exam BP 143/72 Pulse 133 Temp (Src) 97.5 (Oral) Resp 18 SpO2 99% O2 Therapy: Room Air Physical Exam Vitals signs and nursing note reviewed. Constitutional: General: She is not in acute distress. Appearance: She is well-developed. She is not diaphoretic. HENT: Head: Normocephalic and atraumatic. Eyes: General: No scleral icterus. Right eye: No discharge. Left eye: No discharge. Conjunctiva/sclera: Conjunctivae normal. Pupils: Pupils are equal, round, and reactive to light. Neck: Musculoskeletal: Normal range of motion. No neck rigidity. Trachea: No tracheal deviation. Cardiovascular: Rate and Rhythm: Normal rate and regular rhythm. Heart sounds: Normal heart sounds. No murmur. No friction rub. No gallop. Pulmonary: Effort: Pulmonary effort is normal. No respiratory distress. Breath sounds: Normal breath sounds. Abdominal: General: There is no distension. Palpations: Abdomen is soft. Tenderness: There is no abdominal tenderness. There is no guarding or rebound. Comments: Mild slight left CVA tenderness Musculoskeletal: Normal range of motion. Skin: General: Skin is warm and dry. Neurological: Mental Status: She is alert and oriented to person, place, and time. Cranial Nerves: No cranial nerve deficit. Sensory: No sensory deficit. Motor: No weakness. Gait: Gait normal. Psychiatric: Mood and Affect: Mood normal. Behavior: Behavior normal. Diagnostic Testing ED Labs Ordered and Reviewed URINALYSIS WITH MICROSCOPIC - Abnormal; Notable for the following components: Result Value Ref Range Hemoglobin/Blood,Ur 2+ (*) Negative RBC, Urine 3-5 (*) 0 - 3 /HPF All other components within normal limits CBC + DIFF - Abnormal; Notable for the following components: RBC 3.87 (*) 3.90 - 5.20 m/uL Hematocrit 34.8 (*) 36.0 - 46.0 % Abs Neut (ANC) 7.61 (*) 1.45 - 7.50 k/uL All other components within normal limits COMP METABOLIC PANEL - Abnormal; Notable for the following components: Albumin 3.6 (*) 3.9 - 4.9 g/dL Glucose 142 (*) 74 - 99 mg/dL Potassium 3.6 (*) 3.7 - 5.1 mmol/L All other components within normal limits Procedures ED Course / Clinical Impression Differential Diagnosis 1. Tension headache 2. dehydration 3. ANTONIO 4. anemia 5. UTI ED Course and Medical Decision Making Vital signs were reviewed. Triage records were reviewed. Medical records were reviewed. Nursing notes were reviewed and incorporated. An IV was established and the patient was placed on the monitor. Initial workup consisted of CBC, CMP, UA. Therapeutically the patient was given IV fluids and Tylenol by mouth and Toradol IV when her creatinine came back normal. All lab results were reviewed and interpreted by myself as negative except for slight hyperglycemia with no acidosis. Notably urinalysis had no signs of infection. On reevaluation her neurologic exam remained nonfocal, she is on steroids and Remicade but had no fevers, appeared nontoxic, and had no nuchal rigidity and I felt meningitis was less likely. I also considered other emergent vascular pathology given her history of Bechet's but again she had a nonfocal neurologic exam and her headache improved with fluids, Tylenol and Toradol. I tried to call her army officer twice to see if there was imaging or other studies recommended as she reportedly stated he sent her to the ED, but I did not get call back after leaving 2 messages. As the patient was feeling better I felt she was stable for outpatient management recommending follow-up by her primary care provider army officer in the next week. I encouraged her to take her antibiotics but as she just had a CT yesterday, benign exam today, and was tolerating by mouth, I felt she was stable for outpatient management of her reported colitis. She agreed. The patient was told to return to the Emergency Department immediately if any new or worsening symptoms develop fever, worsening headache, intractable vomiting, or for any other concerns. The patient verbalized agreement to this plan. The patient remained hemodynamically stable with good respiratory effort throughout the course of my shift in the ED. Clinical Impressions as of Jul 27 1929 Headache disorder Abdominal pain, LUQ MDM / Disposition / Plan MDM The patient was DISCHARGED: Counseled patient regarding lab results AND suspected diagnosis AND need for follow-up. Discharged home with verbal and written instructions. They were instructed to return as needed for persistent or worsening symptoms or any new concerns. Condition at time of disposition: improved SIGNATURE: MD Guy Mathias MD 07/27/191934 Normal [facility] Urinalysis with Microscopico n 07-27-2019 Bilirubin, Urine Negative Normal Negative [facility] Comment on above: Performed By: #### U AWMIC #### [place] [id number] [place] [phone] Clarity (U) Clear Normal Clear [facility] Comment on above: Performed By: #### U AWMIC #### [place] [id number] [phone] Color (U) Yellow Normal Yellow [facility] Comment on above: Performed By: #### U AWMIC #### [facility] [place] [facility] [place] [phone] Comments SEE COMMENT Normal [facility] Comment on above: Result Comment: N/A Performed By: #### U AWMIC #### [facility] [place] [facility] [place] [phone] Epithelial cells LM.HPF (Urine sed) [#/Area] SEE COMMENT Normal [facility] Comment on above: Result Comment: Few Squamous Epithelial Cells Performed By: #### U AWMIC #### [facility] [place] [facility] [address] [place], [place] [phone] Glucose Ql (U) Negative Normal Negative [facility] Comment on above: Performed By: #### U AWMIC #### [facility] [address] [place], [place] [address] Hemoglobin/Blood,Ur 2+ Critically abnormal Negative [facility] Comment on above: Performed By: #### U AWMIC #### [address] [address] Ketones Ql (U) Negative Normal Negative [facility] Comment on above: Performed By: #### U AWMIC #### [place] [address] Leukest Negative Normal Negative [facility] Comment on above: Performed By: #### U AWMIC #### [place] [address] Nitrite Ql (U) Negative Normal Negative [facility] Comment on above: Performed By: #### U AWMIC #### [place] [address] pH (Bld) 7.0 Normal 4.5-8.0 [facility] Comment on above: Performed By: #### U AWMIC #### [place] [id number] Protein (U) [Mass/Vol] Negative Normal Negative [facility] Comment on above: Performed By: #### U AWMIC #### [place] [id number] RBC (U) [#/Vol] 3-5 Critically abnormal 0-3 [facility] Comment on above: Performed By: #### U AWMIC #### [facility] [place] [facility] [place] [address] Specific [place], Ur 1.009 Normal 1.005-1.030 [facility] Comment on above: Performed By: #### U AWMIC #### [facility] [address] [place], [place] [phone] Urine Farshad Comment SEE COMMENT Normal [facility] Comment on above: Result Comment: N/A Performed By: #### U AWMIC #### [facility] [address] [place], [place] [phone] Urobilinogen Qn (U) Normal Normal Normal [facility] Comment on above: Performed By: #### U AWMIC #### [facility] [address] [place] [id number] WBC (Bld) [#/Vol] 0-5 Normal 0-5 [facility] Comment on above: Performed By: #### U AWMIC #### [facility] [address] [place], [place] [address] Vital Signs Date Time Vital Sign Value Performing Clinician Facility 08-16-2024 11:23-0500 Body mass index (BMI) [Ratio] 18.81 kg/m2 Maral MEJIA Work Phone: [facility] 08-16-2024 11:23-0500 Body weight 57.79 kg Maral MEJIA Work Phone: [facility] 08-16-2024 11:23-0500 Diastolic blood pressure 90 mm[Hg] Maral MEJIA Work Phone: [facility] 08-16-2024 11:23-0500 Systolic blood pressure 132 mm[Hg] Maral MEJIA Work Phone: [facility] 06-28-2024 13:23-0500 Diastolic blood pressure 58 mm[Hg] [facility] 06-28-2024 13:23-0500 Heart rate 55 /min [facility] 06-28-2024 13:23-0500 Respiratory rate 14 /min [facility] 06-28-2024 13:23-0500 Systolic blood pressure 125 mm[Hg] [facility] 06-28-2024 11:57-0500 Body mass index (BMI) [Ratio] 18.56 kg/m2 [address] 06-28-2024 11:57-0500 Body temperature 97.2 [degF] [facility]10 [facility] 06-28-2024 11:57-0500 Body weight 57.[address] 06-14-2024 08:04-0500 Body height 175.3 cm Kalyan Proctor MD Work Phone: [facility] 06-14-2024 08:04-0500 Body mass index (BMI) [Ratio] 18.87 kg/m2 Kalyan Proctor MD Work Phone: [facility] 06-14-2024 08:04-0500 Body weight 57.97 kg Kalyan Proctor MD Work Phone: [facility] 06-14-2024 08:04-0500 Diastolic blood pressure 60 mm[Hg] Kalyan Proctor MD Work Phone: [facility] 06-14-2024 08:04-0500 Heart rate 75 /min Kalyan Proctor MD Work Phone: [facility] 06-14-2024 08:04-0500 SaO2% (BldA) [Mass fraction] 98 % Kalyan Proctor MD Work Phone: [facility] 06-14-2024 08:04-0500 Systolic blood pressure 110 mm[Hg] Kalyan Proctor MD Work Phone: [facility] 05-25-2024 13:24-0500 Diastolic blood pressure 60 mm[Hg] [facility] 05-25-2024 13:24-0500 Heart rate 62 /min [address] [facility] 05-25-2024 13:24-0500 Respiratory rate 14 /min [facility] 05-25-2024 13:24-0500 Systolic blood pressure 122 mm[Hg] [address] 05-25-2024 11:50-0500 Body mass index (BMI) [Ratio] 17.72 kg/m2 [address] 05-25-2024 11:50-0500 Body temperature 97.11 [degF] [address] 05-25-2024 11:50-0500 Body weight 54.[address] 04-27-2024 14:15-0400 Body mass index (BMI) [Ratio] 18.16 kg/m2 Collette Salinas [employer] Work Phone: [facility] 04-27-2024 14:15-0400 Body temperature 98.01 [degF] Collette Salinas [employer]IDENT Work Phone: [facility] 04-27-2024 14:15-0400 Body weight 55.79 kg Collette Salinas [employer] Work Phone: [facility] 04-27-2024 14:15-0400 Diastolic blood pressure 72 mm[Hg] Collette Salinas [employer]IDENT Work Phone: [facility] 04-27-2024 14:15-0400 Heart rate 90 /min Collette Salinas [employer]IDENT Work Phone: [facility] 04-27-2024 14:15-0400 SaO2% (BldA) [Mass fraction] 100 % Collette Salinas [employer]IDENT Work Phone: [facility] 04-27-2024 14:15-0400 Systolic blood pressure 118 mm[Hg] Collette Salinas [employer]IDENT Work Phone: [facility] 04-20-2024 13:30-0400 Diastolic blood pressure 60 mm[Hg] [address] 04-20-2024 13:30-0400 Heart rate 77 /min [address] 04-20-2024 13:30-0400 Respiratory rate 16 /min [address] 04-20-2024 13:30-0400 Systolic blood pressure 143 mm[Hg] [address] 04-20-2024 12:00-0400 Body mass index (BMI) [Ratio] 17.87 kg/m2 [address] 04-20-2024 12:00-0400 Body temperature 97.9 [degF] [address] 04-20-2024 12:00-0400 Body weight 54.[address] 03-16-2024 11:42-0400 Diastolic blood pressure 65 mm[Hg] [address] 03-16-2024 11:42-0400 Heart rate 45 /min [address] 03-16-2024 11:42-0400 Respiratory rate 16 /min [address] 03-16-2024 11:42-0400 Systolic blood pressure 146 mm[Hg] [address] 03-16-2024 09:53-0400 Body mass index (BMI) [Ratio] 17.72 kg/m2 [address] 03-16-2024 09:53-0400 Body temperature 97.9 [degF] [address] 03-16-2024 09:53-0400 Body weight 54.[address] 03-12-2024 12:39-0400 Body height 175.3 cm Kalyan Proctor MD Work Phone: [facility] 03-12-2024 12:39-0400 Body mass index (BMI) [Ratio] 17.72 kg/m2 Kalyan Proctor MD Work Phone: [facility] 03-12-2024 12:39-0400 Body weight 54.43 kg Kalyan Proctor MD Work Phone: [facility] 03-12-2024 12:39-0400 Diastolic blood pressure 63 mm[Hg] Kalyan Proctor MD Work Phone: [facility] 03-12-2024 12:39-0400 Heart rate 83 /min Kalyan Proctor MD Work Phone: [facility] 03-12-2024 12:39-0400 SaO2% (BldA) [Mass fraction] 99 % Kalyan Proctor MD Work Phone: [facility] 03-12-2024 12:39-0400 Systolic blood pressure 128 mm[Hg] Kalyan Proctor MD Work Phone: [facility] 02-10-2024 12:18-0400 Diastolic blood pressure 63 mm[Hg] [facility] 02-10-2024 12:18-0400 Heart rate 55 /min [facility] 02-10-2024 12:18-0400 Respiratory rate 16 /min [facility] 02-10-2024 12:18-0400 Systolic blood pressure 135 mm[Hg] [facility] 02-10-2024 10:46-0400 Body mass index (BMI) [Ratio] 17.57 kg/m2 [facility] 02-10-2024 10:46-0400 Body temperature 97.3 [degF] [facility] 02-10-2024 10:46-0400 Body weight 53.98 kg [facility] 01-06-2024 12:47-0400 Diastolic blood pressure 71 mm[Hg] [facility] 01-06-2024 12:47-0400 Heart rate 55 /min [facility] 01-06-2024 12:47-0400 Respiratory rate 16 /min [facility] 01-06-2024 12:47-0400 Systolic blood pressure 153 mm[Hg] [facility] 11-28-2023 12:21-0400 Diastolic blood pressure 57 mm[Hg] [facility] 11-28-2023 12:21-0400 Heart rate 57 /min [facility] 11-28-2023 12:21-0400 Respiratory rate 16 /min [facility] 11-28-2023 12:21-0400 Systolic blood pressure 126 mm[Hg] [facility] 11-28-2023 10:52-0400 Body mass index (BMI) [Ratio] 17.13 kg/m2 [facility] 11-28-2023 10:52-0400 Body temperature 97.39 [degF] [facility] 11-28-2023 10:52-0400 Body weight 52.62 kg [facility] 11-14-2023 13:51-0400 Body height 175.3 cm Kalyan Proctor MD Work Phone: [facility] 11-14-2023 13:51-0400 Body mass index (BMI) [Ratio] 17.28 kg/m2 Kalyan Proctor MD Work Phone: [facility] 11-14-2023 13:51-0400 Body weight 53.07 kg Kalyan Proctor MD Work Phone: [facility] 11-14-2023 13:51-0400 Diastolic blood pressure 64 mm[Hg] Kalyan Proctor MD Work Phone: [facility] 11-14-2023 13:51-0400 Heart rate 94 /min Kalyan Proctor MD Work Phone: [facility] 11-14-2023 13:51-0400 SaO2% (BldA) [Mass fraction] 97 % Kalyan Proctor MD Work Phone: [facility] 11-14-2023 13:51-0400 Systolic blood pressure 92 mm[Hg] Kalyan Proctor MD Work Phone: [facility] 10-16-2023 13:07-0400 Diastolic blood pressure 59 mm[Hg] [address] 10-16-2023 13:07-0400 Heart rate 69 /min [address] 10-16-2023 13:07-0400 Respiratory rate 16 /min [address] 10-16-2023 13:07-0400 Systolic blood pressure 127 mm[Hg] [address] 10-16-2023 11:00-0400 Body mass index (BMI) [Ratio] 17.48 kg/m2 [address] 10-16-2023 11:00-0400 Body temperature 97.3 [degF] [address] 10-16-2023 11:00-0400 Body weight 53.[address] 10-03-2023 11:22-0400 Body height 175.26 cm MD Shaikh Burroughs Work Phone: [facility] 10-03-2023 11:22-0400 Body mass index (BMI) [Ratio] 17.7 kg/m2 MD Shaikh Burroughs Work Phone: [facility] 10-03-2023 11:22-0400 Body weight 54.43 kg MD Shaikh Burroughs Work Phone: [facility] 09-11-2023 13:00-0500 Diastolic blood pressure 56 mm[Hg] [address] 09-11-2023 13:00-0500 Heart rate 57 /min [address] 09-11-2023 13:00-0500 Respiratory rate 16 /min [address] 09-11-2023 13:00-0500 Systolic blood pressure 116 mm[Hg] [address] 09-11-2023 11:26-0500 Body mass index (BMI) [Ratio] 17.32 kg/m2 [address] 09-11-2023 11:26-0500 Body temperature 97.2 [degF] [address] 09-11-2023 11:26-0500 Body weight 53.[address] 08-26-2023 13:32-0500 Diastolic blood pressure 55 mm[Hg] MD Shaikh Burroughs Work Phone: [facility] 08-26-2023 13:32-0500 Heart rate 54 /min MD Shaikh Burroughs Work Phone: [facility] 08-26-2023 13:32-0500 Respiratory rate 18 /min MD Shaikh Burroughs Work Phone: [facility] 08-26-2023 13:32-0500 SaO2% (BldA) [Mass fraction] 100 % MD Shaikh Burroughs Work Phone: [facility] 08-26-2023 13:32-0500 Systolic blood pressure 120 mm[Hg] MD Shaikh Burroughs Work Phone: [facility] 08-26-2023 11:55-0500 Body height 175.26 cm MD Shaikh Burroughs Work Phone: [facility] 08-26-2023 11:55-0500 Body weight 54.46 kg MD Shaikh Burroughs Work Phone: [facility] 08-12-2023 10:00-0500 Body height 175.26 cm Oliverio Willis Other [facility] 08-12-2023 10:00-0500 Body mass index (BMI) [Ratio] 17.13 kg/m2 Oliverio Willis Other [facility] [employer] Other 08-12-2023 10:00-0500 Body weight 52.62 kg Oliverio Willis Other [facility] [employer] Other 08-12-2023 10:00-0500 Body weight 52.61 kg MD Shaikh Burroughs Work Phone: [facility] 08-12-2023 10:00-0500 Diastolic blood pressure 80 mm[Hg] Oliverio Willis Other [facility] 08-12-2023 10:00-0500 Systolic blood pressure 139 mm[Hg] Oliverio Willis Other [facility] 07-04-2023 15:19-0500 Body height 175.3 cm Kalyan Proctor MD Work Phone: [facility] 07-04-2023 15:19-0500 Body mass index (BMI) [Ratio] 17.66 kg/m2 Kalyan Proctor MD Work Phone: [facility] 07-04-2023 15:19-0500 Body weight 54.25 kg Kalyan Proctor MD Work Phone: [facility] 07-04-2023 15:19-0500 Diastolic blood pressure 72 mm[Hg] Kalyan Proctor MD Work Phone: [facility] 07-04-2023 15:19-0500 Heart rate 69 /min Kalyan Proctor MD Work Phone: [facility] 07-04-2023 15:19-0500 SaO2% (BldA) [Mass fraction] 99 % Kalyan Proctor MD Work Phone: [facility] 07-04-2023 15:19-0500 Systolic blood pressure 118 mm[Hg] Kalyan Proctor MD Work Phone: [facility] 07-03-2023 13:33-0500 Diastolic blood pressure 53 mm[Hg] [facility]-[address] 07-03-2023 13:33-0500 Heart rate 55 /min [facility] 07-03-2023 13:33-0500 Respiratory rate 14 /min [facility] 07-03-2023 13:33-0500 Systolic blood pressure 113 mm[Hg] [facility] 07-03-2023 11:51-0500 Body mass index (BMI) [Ratio] 17.43 kg/m2 [address] 07-03-2023 11:51-0500 Body temperature 97.39 [degF] [facility] 07-03-2023 11:51-0500 Body weight 53.52 kg [facility]3 [facility] 05-30-2023 13:40-0500 Diastolic blood pressure 61 mm[Hg] [facility] 05-30-2023 13:40-0500 Heart rate 67 /min [facility] 05-30-2023 13:40-0500 Respiratory rate 16 /min [facility] 05-30-2023 13:40-0500 Systolic blood pressure 120 mm[Hg] [address] 05-30-2023 12:12-0500 Body mass index (BMI) [Ratio] 17.34 kg/m2 [address] 05-30-2023 12:12-0500 Body temperature 97.7 [degF] [address] 05-30-2023 12:12-0500 Body weight 53.[address] 05-08-2023 11:00-0400 Body weight 52.53 kg Oliverio Willis Other [employer] Other 05-08-2023 11:00-0400 Diastolic blood pressure 68 mm[Hg] Oliverio Willis Other [employer] Other 05-08-2023 11:00-0400 Systolic blood pressure 122 mm[Hg] Oliverio Willis Other [facility] [employer] Other 04-28-2023 13:02-0400 Diastolic blood pressure 55 mm[Hg] [facility] 04-28-2023 13:02-0400 Heart rate 54 /min [facility] 04-28-2023 13:02-0400 Respiratory rate 16 /min [facility] 04-28-2023 13:02-0400 Systolic blood pressure 124 mm[Hg] [facility] 04-28-2023 11:28-0400 Body mass index (BMI) [Ratio] 17.07 kg/m2 [facility] 04-28-2023 11:28-0400 Body temperature 97.5 [degF] [facility] 04-28-2023 11:28-0400 Body weight 52.44 kg [facility] 04-04-2023 11:01-0400 Body height 175.3 cm Kalyan Proctor MD Work Phone: [facility] 04-04-2023 11:01-0400 Body mass index (BMI) [Ratio] 16.83 kg/m2 Kalyan Proctor MD Work Phone: [facility] 04-04-2023 11:01-0400 Body weight 51.71 kg Kalyan Proctor MD Work Phone: [facility] 04-04-2023 11:01-0400 Diastolic blood pressure 62 mm[Hg] Kalyan Proctor MD Work Phone: [facility] 04-04-2023 11:01-0400 Heart rate 65 /min Kalyan Proctor MD Work Phone: [facility] 04-04-2023 11:01-0400 SaO2% (BldA) [Mass fraction] 99 % Kalyan Proctor MD Work Phone: [facility] 04-04-2023 11:01-0400 Systolic blood pressure 102 mm[Hg] Kalyan Proctor MD Work Phone: [facility] 03-24-2023 15:05-0400 Diastolic blood pressure 55 mm[Hg] [facility] 03-24-2023 15:05-0400 Heart rate 48 /min [facility] 03-24-2023 15:05-0400 Respiratory rate 16 /min [facility]c6 [facility] 03-24-2023 15:05-0400 Systolic blood pressure 100 mm[Hg] [facility] 03-24-2023 13:36-0400 Body mass index (BMI) [Ratio] 16.92 kg/m2 [facility] 03-24-2023 13:36-0400 Body temperature 98.6 [degF] [facility] 03-24-2023 13:36-0400 Body weight 51.98 kg [facility]6 [facility] 02-17-2023 14:29-0400 Diastolic blood pressure 65 mm[Hg] [facility] Ocd-Ic4 [facility] 02-17-2023 14:29-0400 Heart rate 57 /min [facility] 02-17-2023 14:29-0400 Respiratory rate 14 /min [facility] 02-17-2023 14:29-0400 Systolic blood pressure 145 mm[Hg] [facility] [facility] 02-17-2023 12:52-0400 Body mass index (BMI) [Ratio] 17 kg/m2 [facility] 02-17-2023 12:52-0400 Body temperature 98.29 [degF] [facility] 02-17-2023 12:52-0400 Body weight 52.21 kg [facility]cd-4 [facility] 01-17-2023 15:11-0400 Body height 175.3 cm Kalyan Proctor MD Work Phone: [facility] 01-17-2023 15:11-0400 Body mass index (BMI) [Ratio] 17.43 kg/m2 Kalyan Proctor MD Work Phone: [facility] 01-17-2023 15:11-0400 Body weight 53.52 kg Kalyan Proctor MD Work Phone: [facility] 01-17-2023 15:11-0400 Diastolic blood pressure 72 mm[Hg] Kalyan Proctor MD Work Phone: [facility] 01-17-2023 15:11-0400 Heart rate 77 /min Kalyan Proctor MD Work Phone: [facility] 01-17-2023 15:11-0400 SaO2% (BldA) [Mass fraction] 99 % Kalyan Proctor MD Work Phone: [facility] 01-17-2023 15:11-0400 Systolic blood pressure 118 mm[Hg] Kalyan Proctor MD Work Phone: [facility] 01-15-2023 13:45-0400 Diastolic blood pressure 51 mm[Hg] [address] 01-15-2023 13:45-0400 Heart rate 47 /min [address] 01-15-2023 13:45-0400 Respiratory rate 14 /min [address] 01-15-2023 13:45-0400 Systolic blood pressure 117 mm[Hg] [address] 01-15-2023 12:15-0400 Body mass index (BMI) [Ratio] 17.4 kg/m2 [address] 01-15-2023 12:15-0400 Body temperature 98.1 [degF] [address] 01-15-2023 12:15-0400 Body weight 53.[address] 12-10-2022 14:04-0400 Diastolic blood pressure 61 mm[Hg] [facility] 12-10-2022 14:04-0400 Heart rate 67 /min [facility]8 [facility] 12-10-2022 14:04-0400 Respiratory rate 16 /min [facility]cd[facility]8 [facility] 12-10-2022 14:04-0400 Systolic blood pressure 129 mm[Hg] [facility]cd[facility]8 [facility] 12-10-2022 12:20-0400 Body mass index (BMI) [Ratio] 17.12 kg/m2 [facility] 12-10-2022 12:20-0400 Body temperature 98.6 [degF] [facility] 12-10-2022 12:20-0400 Body weight 52.57 kg [facility]8 [facility] 11-04-2022 13:50-0400 Diastolic blood pressure 56 mm[Hg] [facility] 11-04-2022 13:50-0400 Heart rate 52 /min [facility]8 [facility] 11-04-2022 13:50-0400 Respiratory rate 14 /min [facility]8 [facility] 11-04-2022 13:50-0400 Systolic blood pressure 108 mm[Hg] [facility] 11-04-2022 12:22-0400 Body mass index (BMI) [Ratio] 17.34 kg/m2 [facility] 11-04-2022 12:22-0400 Body temperature 98.2 [degF] [facility]8 [facility] 11-04-2022 12:22-0400 Body weight 53.25 kg [facility] Ocd-Ic8 [facility] 09-30-2022 14:04-0400 Diastolic blood pressure 56 mm[Hg] [facility] 09-30-2022 14:04-0400 Heart rate 54 /min [address] 09-30-2022 14:04-0400 Respiratory rate 16 /min [address] 09-30-2022 14:04-0400 Systolic blood pressure 121 mm[Hg] [address] 09-30-2022 12:35-0400 Body mass index (BMI) [Ratio] 17.32 kg/m2 [address] 09-30-2022 12:35-0400 Body temperature 97.81 [degF] [address] 09-30-2022 12:35-0400 Body weight 53.[address] 09-13-2022 13:17-0500 Body height 175.3 cm Kalyan Proctor MD Work Phone: [facility] 09-13-2022 13:17-0500 Body mass index (BMI) [Ratio] 17.28 kg/m2 Kalyan Proctor MD Work Phone: [facility] 09-13-2022 13:17-0500 Body weight 53.07 kg Kalyan Proctor MD Work Phone: [facility] 09-13-2022 13:17-0500 Diastolic blood pressure 58 mm[Hg] Kalyan Proctor MD Work Phone: [facility] 09-13-2022 13:17-0500 Heart rate 76 /min Kalyan Proctor MD Work Phone: [facility] 09-13-2022 13:17-0500 Respiratory rate 16 /min Kalyan Proctor MD Work Phone: [facility] 09-13-2022 13:17-0500 SaO2% (BldA) [Mass fraction] 96 % Kalyan Proctor MD Work Phone: [facility] 09-13-2022 13:17-0500 Systolic blood pressure 120 mm[Hg] Kalyan Proctor MD Work Phone: [facility] 08-23-2022 13:48-0500 Diastolic blood pressure 51 mm[Hg] [address] 08-23-2022 13:48-0500 Heart rate 51 /min [address] 08-23-2022 13:48-0500 Respiratory rate 16 /min [address] 08-23-2022 13:48-0500 Systolic blood pressure 99 mm[Hg] [address] 08-23-2022 12:03-0500 Body mass index (BMI) [Ratio] 17.72 kg/m2 [address] 08-23-2022 12:03-0500 Body temperature 97.5 [degF] [address] 08-23-2022 12:03-0500 Body weight 54.[address] 07-19-2022 13:33-0500 Diastolic blood pressure 59 mm[Hg] [address] 07-19-2022 13:33-0500 Heart rate 72 /min [address] 07-19-2022 13:33-0500 Respiratory rate 16 /min [address] 07-19-2022 13:33-0500 Systolic blood pressure 130 mm[Hg] [address] 07-19-2022 12:00-0500 Body mass index (BMI) [Ratio] 17.81 kg/m2 [address] 07-19-2022 12:00-0500 Body temperature 97.2 [degF] [facility]8 [facility] 07-19-2022 12:00-0500 Body weight 54.7 kg [facility]8 [facility] 06-14-2022 14:02-0500 Diastolic blood pressure 55 mm[Hg] [facility] 06-14-2022 14:02-0500 Heart rate 55 /min [facility] 06-14-2022 14:02-0500 Respiratory rate 16 /min [facility] 06-14-2022 14:02-0500 Systolic blood pressure 109 mm[Hg] [facility] 06-14-2022 12:24-0500 Body mass index (BMI) [Ratio] 18.02 kg/m2 [facility] 06-14-2022 12:24-0500 Body temperature 97.9 [degF] [facility]6 [facility] 06-14-2022 12:24-0500 Body weight 55.34 kg [facility]6 [facility] 06-10-2022 10:21-0500 Body height 175.3 cm Kalyan Proctor MD Work Phone: [facility] 06-10-2022 10:21-0500 Body mass index (BMI) [Ratio] 18.02 kg/m2 Kalyan Proctor MD Work Phone: [facility] 06-10-2022 10:21-0500 Body weight 55.34 kg Kalyan Proctor MD Work Phone: [facility] 06-10-2022 10:21-0500 Diastolic blood pressure 68 mm[Hg] Kalyan Proctor MD Work Phone: [facility] 06-10-2022 10:21-0500 Heart rate 73 /min Kalyan Proctor MD Work Phone: [facility] 06-10-2022 10:21-0500 SaO2% (BldA) [Mass fraction] 99 % Kalyan Proctor MD Work Phone: [facility] 06-10-2022 10:21-0500 Systolic blood pressure 110 mm[Hg] Kalyan Proctor MD Work Phone: [facility] 05-03-2022 13:51-0400 Diastolic blood pressure 56 mm[Hg] [address] 05-03-2022 13:51-0400 Heart rate 68 /min [address] 05-03-2022 13:51-0400 Respiratory rate 16 /min [address] 05-03-2022 13:51-0400 Systolic blood pressure 107 mm[Hg] [address] 05-03-2022 12:19-0400 Body mass index (BMI) [Ratio] 17.78 kg/m2 [address] 05-03-2022 12:19-0400 Body temperature 98.6 [degF] [address] 05-03-2022 12:19-0400 Body weight 54.[address] 03-29-2022 13:28-0400 Diastolic blood pressure 59 mm[Hg] [address] 03-29-2022 13:28-0400 Heart rate 65 /min [address] 03-29-2022 13:28-0400 Respiratory rate 16 /min [address] 03-29-2022 13:28-0400 Systolic blood pressure 119 mm[Hg] [address] 03-29-2022 11:58-0400 Body mass index (BMI) [Ratio] 17.13 kg/m2 [address] 03-29-2022 11:58-0400 Body temperature 98.6 [degF] [address] 03-29-2022 11:58-0400 Body weight 52.[address] 03-15-2022 15:31-0400 Body height 175.3 cm Kalyan Proctor MD Work Phone: [facility] 03-15-2022 15:31-0400 Body mass index (BMI) [Ratio] 17.13 kg/m2 Kalyan Proctor MD Work Phone: [facility] 03-15-2022 15:31-0400 Body weight 52.62 kg Kalyan Proctor MD Work Phone: [facility] Comment on above: pt informed of her weight 03-15-2022 15:31-0400 Diastolic blood pressure 62 mm[Hg] Kalyan Proctor MD Work Phone: [facility] 03-15-2022 15:31-0400 Heart rate 77 /min Kalyan Proctor MD Work Phone: [facility] 03-15-2022 15:31-0400 SaO2% (BldA) [Mass fraction] 96 % Kalyan Proctor MD Work Phone: [facility] Comment on above: room air 03-15-2022 15:31-0400 Systolic blood pressure 102 mm[Hg] Kalyan Proctor MD Work Phone: [facility] 02-22-2022 14:08-0400 Diastolic blood pressure 56 mm[Hg] [facility] 02-22-2022 14:08-0400 Heart rate 55 /min [place] [address] [facility] 02-22-2022 14:08-0400 Respiratory rate 16 /min [facility]2 [facility] 02-22-2022 14:08-0400 Systolic blood pressure 118 mm[Hg] [facility]-2 [facility] 02-22-2022 12:33-0400 Body mass index (BMI) [Ratio] 17.81 kg/m2 [facility] 02-22-2022 12:33-0400 Body temperature 98.4 [degF] [facility] 02-22-2022 12:33-0400 Body weight 54.7 kg [facility] 01-18-2022 14:05-0400 Diastolic blood pressure 57 mm[Hg] [facility]1 [facility] 01-18-2022 14:05-0400 Heart rate 48 /min [facility] 01-18-2022 14:05-0400 Respiratory rate 16 /min [facility] 01-18-2022 14:05-0400 Systolic blood pressure 110 mm[Hg] [facility] 01-18-2022 12:26-0400 Body mass index (BMI) [Ratio] 17.1 kg/m2 [facility] 01-18-2022 12:26-0400 Body temperature 98.2 [degF] [facility] 01-18-2022 12:26-0400 Body weight 52.53 kg [facility] 12-14-2021 13:52-0400 Diastolic blood pressure 56 mm[Hg] [facility] 12-14-2021 13:52-0400 Heart rate 57 /min [facility] 12-14-2021 13:52-0400 Respiratory rate 16 /min [address] 12-14-2021 13:52-0400 Systolic blood pressure 108 mm[Hg] [address] 12-14-2021 12:29-0400 Body mass index (BMI) [Ratio] 17.99 kg/m2 [address] 12-14-2021 12:29-0400 Body temperature 97.81 [degF] [address] 12-14-2021 12:29-0400 Body weight 55.[address] 11-30-2021 15:03-0400 Body mass index (BMI) [Ratio] 18.16 kg/m2 Kalyan Proctor MD Work Phone: [phone] [address] 11-30-2021 15:03-0400 Body weight 55.79 kg Kalyan Proctro MD Work Phone: 9(747)[phone] [place] [address] 11-30-2021 15:03-0400 Diastolic blood pressure 70 mm[Hg] Kalyan Proctor MD Work Phone: [facility] 11-30-2021 15:03-0400 Heart rate 80 /min Kalyan Proctor MD Work Phone: 6(028)[phone] [place] [address] 11-30-2021 15:03-0400 Respiratory rate 14 /min Kalyan Proctor MD Work Phone: [facility] 11-30-2021 15:03-0400 SaO2% (BldA) [Mass fraction] 98 % Kalyan Proctor MD Work Phone: [facility] 11-30-2021 15:03-0400 Systolic blood pressure 110 mm[Hg] Kalyan Proctor MD Work Phone: 2([phone] [place] [address] 11-02-2021 14:51-0400 Diastolic blood pressure 60 mm[Hg] [address] 11-02-2021 14:51-0400 Heart rate 55 /min [address] 11-02-2021 14:51-0400 Respiratory rate 16 /min [address] 11-02-2021 14:51-0400 Systolic blood pressure 123 mm[Hg] [address] 11-02-2021 13:14-0400 Body mass index (BMI) [Ratio] 18.61 kg/m2 [address] 11-02-2021 13:14-0400 Body temperature 99 [degF] [address] 11-02-2021 13:14-0400 Body weight 57.[address] 02-05-2021 09:19-0400 Diastolic blood pressure 50 mm[Hg] [address] 02-05-2021 09:19-0400 Heart rate 61 /min [address] 02-05-2021 09:19-0400 Respiratory rate 16 /min [address] 02-05-2021 09:19-0400 Systolic blood pressure 95 mm[Hg] [address] 02-05-2021 07:34-0400 Body mass index (BMI) [Ratio] 17.34 kg/m2 [address] 02-05-2021 07:34-0400 Body temperature 98.01 [degF] [address] 02-05-2021 07:34-0400 Body weight 53.[address] Encounters Encounter Date Encounter Type Care Provider Facility Start: 08-16-2024 End: 08-16-2024 Bamboo flowsheet Maral MEJIA Work Phone: [facility] Start: 08-16-2024 End: 08-16-2024 Bamboo flowsheet Maral MEJIA Work Phone: [facility] Start: 08-16-2024 End: 08-16-2024 Patient encounter procedure Maral MEJIA Work Phone: [facility] Start: 08-16-2024 End: 08-16-2024 Periodic preventive med est patient 40-64yrs Maral MEJIA Work Phone: [facility] Comment on above: Well woman exam with routine gynecological exam Start: 06-28-2024 End: 06-28-2024 Patient encounter procedure Melissa JAEGER Work Phone: [facility] Comment on above: 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Pr imary Dx); Seronegative rheumatoid arthritis Start: 06-28-2024 End: 06-28-2024 ambulatory [facility] Start: 06-14-2024 End: 06-14-2024 Office outpatient visit 25 minutes Kalyan Proctor MD Work Phone: [facility] Comment on above: Seronegative rheumat oid arthritis (Primary Dx); Family history of cleft palate; 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; Decreased hearing of left ear; Hearing loss due to cerumen impaction, left; Polyarthralgia; Encounter for long-term current use of medication; Rheumatoid arthritis involving multiple sites with positive rheumatoid factor Start: 06-14-2024 ambulatory SELF SELF Facility:[facility] Start: 05-25-2024 End: 05-25-2024 Patient encounter procedure George JAEGER Work Phone: [facility] Comment on above: 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Pr imary Dx); Seronegative rheumatoid arthritis Start: 05-25-2024 End: 05-25-2024 ambulatory [facility]cd[facility]Ic[facility] Start: 04-27-2024 End: 04-27-2024 Office outpatient visit 15 minutes Collette Salinas NP Work Phone: [facility] Comment on above: 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CM S/HCC) (Primary Dx); Screening mammogram, encounter for Start: 04-27-2024 End: 04-27-2024 ambulatory COLLETTE SALINAS Not Available Start: 04-27-2024 End: 04-27-2024 Bamboo flowsheet Collette Salinas [employer]UTION [employer]ICE PRESIDENT Work Phone: [facility] Start: 04-27-2024 End: 04-27-2024 Bamboo flowsheet Collette Salinas FINANCIAL INSTITUTION VICE PRESIDENT Work Phone: [facility] Start: 04-20-2024 End: 04-20-2024 Patient encounter procedure [facility] Comment on above: 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Pr imary Dx); Seronegative rheumatoid arthritis Start: 04-20-2024 End: 04-20-2024 ambulatory [facility] Start: 03-16-2024 End: 03-16-2024 Patient encounter procedure George JAEGER Work Phone: [facility] Comment on above: 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Pr imary Dx); Seronegative rheumatoid arthritis Start: 03-16-2024 End: 03-16-2024 ambulatory [facility]Ic10 [facility] Start: 03-12-2024 End: 03-12-2024 Office outpatient visit 25 minutes Kalyan Proctor MD Work Phone: [facility] Comment on above: Seronegative rheumat oid arthritis (Primary Dx); Rheumatoid arthritis involving multiple sites with positive rheumatoid factor; Polyarthralgia; Encounter for long-term current use of medication Start: 03-12-2024 ambulatory KALYAN Day ty[facility] Start: 02-10-2024 End: 02-10-2024 Patient encounter procedure George JAEGER Work Phone: [facility] Comment on above: 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Pr imary Dx); Seronegative rheumatoid arthritis Start: 02-10-2024 End: 02-10-2024 ambulatory [facility] Start: 01-06-2024 End: 01-06-2024 Patient encounter procedure George JAEGER Work Phone: [facility] Comment on above: 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Pr imary Dx); Seronegative rheumatoid arthritis Start: 01-06-2024 End: 01-06-2024 ambulatory [facility] Start: 11-28-2023 End: 11-28-2023 Patient encounter procedure [facility] Comment on above: 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Pr imary Dx); Seronegative rheumatoid arthritis Start: 11-28-2023 End: 11-28-2023 ambulatory [facility] Start: 11-18-2023 End: 11-18-2023 ambulatory SHAIKH MANJEET Not Available Start: 11-14-2023 End: 11-14-2023 Office outpatient visit 25 minutes Kalyan Proctor MD Work Phone: [facility] Comment on above: Seronegative rheumat oid arthritis (Primary Dx); Behcet's disease; Polyarthralgia; Encounter for long-term current use of medication Start: 11-14-2023 ambulatory KALYAN PROCTOR Facili ty:[facility] Start: 11-13-2023 End: 11-13-2023 Emergency department patient visit HOOVERANJALI BURROUGHS [facility] Start: 10-27-2023 End: 10-27-2023 ambulatory SHAIKH AMNJEET Not Available Start: 10-16-2023 End: 10-16-2023 Patient encounter procedure [facility] Comment on above: 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Pr imary Dx); Seronegative rheumatoid arthritis Start: 10-16-2023 End: 10-16-2023 ambulatory [facility] Start: 10-03-2023 End: 10-03-2023 ambulatory MD Shaikh Burroughs Work Phone: [facility] Work Phone: Start: 10-03-2023 End: 10-03-2023 Patient encounter procedure MD Shaikh Burroughs Work Phone: [facility] Work Phone: Start: 09-11-2023 End: 09-11-2023 Patient encounter procedure Angella Thomas MD Work Phone: [facility] Comment on above: 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Pr imary Dx); Seronegative rheumatoid arthritis Start: 09-11-2023 End: 09-11-2023 ambulatory [facility] Start: 08-26-2023 End: 08-26-2023 ambulatory Duran Loaiza Facility:[facility] Start: 08-26-2023 Non-patient / Non-visit MD Shaikh Burroughs Work Phone: [facility] Work Phone: Start: 08-26-2023 End: 08-26-2023 Admission to same day surgery center MD Shaikh Burroughs Work Phone: [facility] Work Phone: Start: 08-26-2023 End: 08-26-2023 ambulatory MD Shaikh Burroughs Work Phone: [facility] Work Phone: Start: 08-23-2023 End: 08-23-2023 Emergency department patient visit [facility] Start: 08-13-2023 End: 08-13-2023 Emergency department patient visit [facility] Start: 08-12-2023 End: 08-12-2023 ambulatory Oliverio Willis Other [employer] Other Start: 08-12-2023 Office outpatient visit 15 minutes [facility] Start: 08-12-2023 End: 08-12-2023 Patient encounter procedure MD Shaikh Burroughs Work Phone: [facility]- Start: 08-11-2023 Clinisync Result Encounter Maral MEJIA Work Phone: [facility] Department Unsolicited Start: 08-11-2023 Clinisync Result Encounter Maral MEJIA Work Phone: [facility] External Department Unsolicited Start: 08-11-2023 End: 08-11-2023 ambulatory MARAL HICKEY Not Available Start: 08-07-2023 ambulatory ANDRZEJ WHITE Facility: [facility] Start: 07-25-2023 End: 07-26-2023 ambulatory SHAIKH MANJEET [facility] Start: 07-21-2023 Patient encounter procedure Maral MEJIA Work Phone: [facility] Start: 07-21-2023 End: 07-21-2023 ambulatory SHAIKH MANJEET Not Available Start: 07-04-2023 End: 07-04-2023 Office outpatient visit 25 minutes Kalyan Proctor MD Work Phone: [facility] Comment on above: 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Pr imary Dx); Seronegative rheumatoid arthritis; Polyarthralgia; Encounter for long-term current use of medication; 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 Start: 07-03-2023 End: 07-03-2023 ambulatory [facility] Start: 07-03-2023 End: 07-03-2023 Patient encounter procedure Angella Thomas MD Work Phone: [facility] Comment on above: 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Pr imary Dx); Seronegative rheumatoid arthritis Start: 06-11-2023 Patient encounter procedure Maral MEJIA Work Phone: [facility] [employer] Start: 06-11-2023 End: 06-11-2023 ambulatory SHAIKH MANJEET Not Available Start: 05-30-2023 End: 05-30-2023 ambulatory La Nena Bates DO Work Phone: [facility] Comment on above: 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Pr imary Dx); Seronegative rheumatoid arthritis Start: 05-08-2023 End: 05-08-2023 ambulatory Oliverio Willis Other [facility] [employer] Other Start: 05-08-2023 Office outpatient ne w 30 minutes Oliverio Willis [facility] Start: 04-28-2023 End: 04-28-2023 ambulatory George JAEGER Work Phone: [facility] Comment on above: Seronegative rheumat oid arthritis (Primary Dx); Behcet's disease; Polyarthralgia; Encounter for long-term current use of medication Start: 04-04-2023 End: 04-04-2023 Office outpatient visit 25 minutes Kalyan Proctor MD Work Phone: [facility] Comment on above: Seronegative rheumat oid arthritis (Primary Dx); Behcet's disease; Polyarthralgia; Encounter for long-term current use of medication Start: 03-24-2023 End: 03-24-2023 ambulatory Brandi Pelaez DO Work Phone: [facility] Comment on above: Seronegative rheumat oid arthritis (Primary Dx); Behcet's disease; Polyarthralgia; Rheumatoid arthritis involving multiple sites with positive rheumatoid factor; intermediate current use of systemic steroids Start: 02-17-2023 End: 02-17-2023 ambulatory [facility] Start: 02-17-2023 End: 02-17-2023 Patient encounter procedure [facility] Comment on above: Seronegative rheumat oid arthritis (Primary Dx); Behcet's disease Start: 01-17-2023 End: 01-17-2023 Office outpatient visit 25 minutes Kalyan Proctor MD Work Phone: [facility] Comment on above: Seronegative rheumat oid arthritis; Polyarthralgia; Encounter for long-term current use of medication; Rheumatoid arthritis involving multiple sites with positive rheumatoid factor Start: 01-15-2023 End: 01-15-2023 ambulatory [facility] Start: 01-15-2023 End: 01-15-2023 Patient encounter procedure [facility] Comment on above: Seronegative rheumat oid arthritis (Primary Dx); Behcet's disease Start: 12-10-2022 End: 12-10-2022 ambulatory [facility] Start: 12-10-2022 End: 12-10-2022 Patient encounter procedure Angella Thomas MD Work Phone: [facility] Comment on above: Seronegative rheumat oid arthritis (Primary Dx); Behcet's disease Start: 11-04-2022 End: 11-04-2022 ambulatory [facility] Start: 11-04-2022 End: 11-04-2022 Patient encounter procedure [facility] Comment on above: Seronegative rheumat oid arthritis (Primary Dx); Behcet's disease Start: 09-30-2022 End: 09-30-2022 ambulatory [facility] Start: 09-30-2022 End: 09-30-2022 Patient encounter procedure Kalyan Proctor MD Work Phone: [facility] Comment on above: Seronegative rheumat oid arthritis (Primary Dx); Behcet's disease Start: 09-13-2022 End: 09-13-2022 Office outpatient visit 25 minutes Kalyan Proctor MD Work Phone: [facility] [facility] Comment on above: Sore lip (Primary Dx ); Seronegative rheumatoid arthritis; Polyarthralgia; Encounter for long-term current use of medication; Rheumatoid arthritis involving multiple sites with positive rheumatoid factor; Behcet's disease Start: 08-23-2022 End: 08-23-2022 ambulatory La Nena Bates DO Work Phone: [facility] Comment on above: Seronegative rheumat oid arthritis (Primary Dx); Behcet's disease Start: 07-19-2022 End: 07-19-2022 ambulatory La Nena Bates DO Work Phone: [facility] [place] Comment on above: Seronegative rheumat oid arthritis (Primary Dx); Behcet's disease Start: 06-14-2022 End: 06-14-2022 ambulatory La Nena Bates DO Work Phone: [facility] Comment on above: Seronegative rheumat oid arthritis (Primary Dx); Behcet's disease Start: 06-10-2022 End: 06-10-2022 Office outpatient visit 25 minutes Kalyan Proctor MD Work Phone: [facility] Comment on above: Seronegative rheumat oid arthritis (Primary Dx); Polyarthralgia; Behcet's disease; intermediate current use of systemic steroids; Encounter for long-term current use of medication; Rheumatoid arthritis involving multiple sites with positive rheumatoid factor Start: 05-03-2022 End: 05-03-2022 ambulatory La Nena Bates DO Work Phone: [facility] [place] Comment on above: Seronegative rheumat oid arthritis (Primary Dx); Behcet's disease Start: 03-29-2022 End: 03-29-2022 ambulatory Rachael Crockett MD Work Phone: [facility] Comment on above: Seronegative rheumat oid arthritis (Primary Dx); Behcet's disease Start: 03-15-2022 End: 03-15-2022 Office outpatient visit 25 minutes Kalyan Proctor MD Work Phone: [facility] Comment on above: Seronegative rheumat oid arthritis (Primary Dx); Rheumatoid arthritis involving multiple sites with positive rheumatoid factor; Polyarthralgia; Behcet's disease; Encounter for long-term current use of medication; 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; Sore lip; Numbness and tingling in left arm; Malaise Start: 02-22-2022 End: 02-22-2022 ambulatory Ashley Quiroz MD Work Phone: [facility] Comment on above: Seronegative rheumat oid arthritis (Primary Dx); Behcet's disease Start: 01-18-2022 End: 01-18-2022 ambulatory Rachael Crockett MD Work Phone: [facility] Comment on above: Seronegative rheumat oid arthritis (Primary Dx); Behcet's disease Start: 12-14-2021 End: 12-14-2021 ambulatory Roberto Sarmiento MD Work Phone: [facility] [place] Comment on above: Seronegative rheumat oid arthritis (Primary Dx); Behcet's disease Start: 11-30-2021 End: 11-30-2021 Office outpatient visit 25 minutes Kalyan Proctor MD Work Phone: [facility] Comment on above: Seronegative rheumat oid arthritis (Primary Dx); Rheumatoid arthritis involving multiple sites with positive rheumatoid factor; Polyarthralgia; Encounter for long-term current use of medication; 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; Behcet's disease Start: 11-02-2021 End: 11-02-2021 ambulatory Rachael Crockett MD Work Phone: [facility] [place] Comment on above: Seronegative rheumat oid arthritis (Primary Dx); Behcet's disease Start: 02-05-2021 End: 02-05-2021 ambulatory Clemente Frias MD Work Phone: [facility] Comment on above: Seronegative rheumat oid arthritis (Primary Dx); Behcet's disease Procedures Date Procedure Procedure Detail Performing Clinician Start: 06-28-2024 Hepatic function panel Kalyan Proctor MD Work Phone: Start: 05-25-2024 CBC AND ELECTRONIC DIFF Kalyan Proctor MD Work Phone: Start: 05-25-2024 Complete blood count with white cell differential, automated Kalyan Proctor MD Work Phone: Start: 03-16-2024 Hepatic function panel Kalyan Proctor MD Work Phone: Start: 02-10-2024 CBC AND ELECTRONIC DIFF Kalyan Proctor MD Work Phone: Start: 02-10-2024 Complete blood count with white cell differential, automated Kalyan Proctor MD Work Phone: Start: 11-28-2023 Hepatic function panel Kalyan Proctor MD Work Phone: Start: 10-16-2023 CBC AND ELECTRONIC DIFF Kalyan Proctor MD Work Phone: Start: 10-16-2023 Complete blood count with white cell differential, automated Kalyan Proctor MD Work Phone: Start: 08-26-2023 Esophagogastroduodenoscopy MD Shaikh Jose worrell Work Phone: Start: 08-11-2023 IGP,APTIMA HPV,AGE GDLN Maral MEJIA Work Phone: Start: 08-11-2023 Microscopic observation [Identifier] in Cervix by Cyto stain Maral MEJIA Work Phone: Start: 07-03-2023 CBC AND ELECTRONIC DIFF Kalyan Proctor MD Work Phone: Start: 07-03-2023 Complete blood count with white cell differential, automated Kalyan Proctor MD Work Phone: Start: 07-03-2023 Hepatic function panel Kalyan Proctor MD Work Phone: Start: 06-26-2023 Mammography Maral MEJIA Work Phone: Start: 04-28-2023 C-reactive protein Kalyan Proctor MD Work Phone: Start: 04-28-2023 Creatinine blood Kalyan Proctor MD Work Phone: Start: 03-24-2023 Assay of gammaglobulin iga igd igg igm each Kalyan Proctor MD Work Phone: Start: 03-24-2023 CBC AND ELECTRONIC DIFF Kalyan Proctor MD Work Phone: Start: 03-24-2023 Complete blood count with white cell differential, automated Kalyan Proctor MD Work Phone: Start: 03-24-2023 Hepatic function panel Kalyan Proctor MD Work Phone: Start: 03-24-2023 SPE SERUM TOTAL PROTEIN Kalyan Proctor MD Work Phone: Start: 12-10-2022 CBC AND ELECTRONIC DIFF Kalyan Proctor MD Work Phone: Start: 12-10-2022 Complete blood count with white cell differential, automated Kalyan Proctor MD Work Phone: Start: 12-10-2022 Hepatic function panel Kalyan Proctor MD Work Phone: Start: 12-10-2022 MANUAL DIFF Kalyan Proctor MD Work Phone: Start: 08-23-2022 CBC AND ELECTRONIC DIFF Kalyan Proctor MD Work Phone: Start: 08-23-2022 Complete blood count with white cell differential, automated Kalyan Proctor MD Work Phone: Start: 08-23-2022 Hepatic function panel Kalyan Proctor MD Work Phone: Start: 05-03-2022 CBC AND ELECTRONIC DIFF Kalyan Proctor MD Work Phone: Start: 05-03-2022 Complete blood count with white cell differential, automated Kalyan Proctor MD Work Phone: Start: 05-03-2022 Hepatic function panel Kalyan Proctor MD Work Phone: Start: 01-18-2022 CBC AND ELECTRONIC DIFF Kalyan Proctor MD Work Phone: Start: 01-18-2022 Complete blood count with white cell differential, automated Kalyan Proctor MD Work Phone: Start: 01-18-2022 Hepatic function panel Kalyan Proctor MD Work Phone: Start: 02-05-2021 CBC AND ELECTRONIC DIFF Kalyan Proctor MD Work Phone: Start: 02-05-2021 Complete blood count with white cell differential, automated Kalyan Proctor MD Work Phone: Start: 02-05-2021 Hepatic function panel Kalyan Proctor MD Work Phone: Start: 05-13-2014 Microscopic observation [Identifier] in Cervix by Cyto stain [facility][id number] Plan of Treatment Date Care Activity Detail Author Start: 11-26-2026 Tetanus vaccination TETANUS [facility] Start: 08-11-2026 Screening for malignant neoplasm of cervix [facility] Start: 08-23-2025 End: 08-23-2025 Patient encounter procedure 08/23/2025 11:00 AM EST Office Visit [facility] [address] [facility] [place] [id number] Maral Hickey PA [address] [place], [place] [address] [facility] OB Start: 08-16-2025 Medicare Annual Wellness (AWV) Medicare Annual Wellness (AWV) [facility] Start: 10-18-2024 End: 10-18-2024 Patient encounter procedure 10/18/2024 8:00 AM EDT Office Visit [facility] [address] [place] [phone] Kalyan Proctor MD [address] [place] [address] [facility] Start: 08-16-2024 End: 08-16-2024 Patient encounter procedure 08/16/2024 11:00 AM EST Office Visit [facility] [address] [facility] [place] [id number] Maral Hickey, PA [address] [place], [place] [id number] [facility] Start: 08-11-2024 Medicare Annual Wellness (AWV) Medicare Annual Wellness (AWV) [facility] Start: 08-04-2024 End: 08-04-2024 Patient encounter procedure [facility] Start: 08-03-2024 End: 08-03-2024 Patient encounter procedure 08/03/2024 12:30 PM EST [facility]fusion [facility] [address] [address] [facility] Start: 07-29-2024 End: 07-29-2024 Patient encounter procedure 07/29/2024 1:30 PM EST Office Visit [facility] CW FM [address] [place] [address] Collette Salinas NP [address] [place] [address] [facility] Start: 06-28-2024 End: 06-28-2024 Patient encounter procedure 06/28/2024 1:30 PM EST Infusion [facility] [address] [address] [facility] Start: 06-26-2024 Screening for malignant neoplasm of breast [facility] Start: 06-22-2024 Influenza vaccination Influenza Vaccine (#1) [facility] Comment on above: Postponed from 03/14/2024 (Patient Refus ed) Start: 06-14-2024 End: 06-14-2024 Patient encounter procedure 06/14/2024 8:20 AM EST Office Visit [facility] [address] [place] [phone] Kalyan Proctor MD [address] [place] [address] [facility] Start: 05-25-2024 End: 05-25-2024 Patient encounter procedure 05/25/2024 12:00 PM EST Infusion [facility] [address] [address] [facility] Start: 04-27-2024 End: 04-27-2024 Patient encounter procedure 04/27/2024 2:30 PM EDT Office Visit [facility] [address] [place] [address] Collette Salinas NP [address] [place] [phone] Arrived [facility] Comment on above: Arrived Start: 04-27-2024 End: 06-27-2025 DBT Breast - bilateral screening Bilateral screening mammogram with tomosynthesis Imaging Routine Screening mammogram, encounter for Expected: 04/27/2024, Expires: 06/27/2025 [facility] Work Phone: Comment on above: Expected: 04/27/2024, Expires: Start: 04-20-2024 End: 04-20-2024 Patient encounter procedure 04/20/2024 12:30 PM EDT Infusion [facility] [address] [address] [facility] Start: 03-16-2024 End: 03-16-2024 Patient encounter procedure 03/16/2024 10:30 AM EDT Infusion [facility] [address] [address] [facility] Start: 03-14-2024 Influenza vaccination [facility] Start: 03-12-2024 End: 03-12-2024 Patient encounter procedure 03/12/2024 1:20 PM EDT Office Visit [facility] [address] [phone] Kalyan Proctor MD [address] [place] [phone] [facility] Start: 02-10-2024 End: 02-10-2024 Patient encounter procedure 02/10/2024 11:30 AM EDT Infusion Visit [facility] [address] [address] [facility] Start: 01-02-2024 End: 01-02-2024 Patient encounter procedure 01/02/2024 11:00 AM EDT Infusion Visit [facility] [address] [address] [facility] Start: 11-21-2023 End: 11-21-2023 Patient encounter procedure 11/21/2023 2:00 PM EDT Infusion Visit [facility] [address] [address] [facility] Start: 11-20-2023 End: 11-20-2023 Patient encounter procedure 11/20/2023 12:00 PM EDT Infusion Visit [facility] [address] [address] [facility] Start: 11-14-2023 End: 11-14-2023 Patient encounter procedure 11/14/2023 2:00 PM EDT Office Visit [facility] [address] [place] [address] Kalyan Proctor MD [address] [place] [address] [facility] Start: 10-27-2023 End: 10-27-2023 Patient encounter procedure 10/27/2023 1:15 PM EDT Office Visit [facility] [address] [place] [address] Shaikh Burroughs MD [address] [place] [address] [facility] Start: 10-16-2023 End: 10-16-2023 Patient encounter procedure 10/16/2023 12:00 PM EDT Infusion Visit [facility] [address] [address] [facility] Start: 08-26-2023 [facility] Start: 08-07-2023 End: 08-07-2023 Patient encounter procedure 08/07/2023 12:00 PM EST Infusion Visit [facility] [address] [address] [facility] Start: 07-09-2023 End: 07-09-2023 ambulatory 07/09/2023 12:30 PM EST [facility]fusion [facility] [address] [place] [phone] [facility] Start: 07-04-2023 End: 07-04-2023 Patient encounter procedure 07/04/2023 3:40 PM EST Office Visit [facility] [address] [place] [address] Kalyan Proctor MD [address] [place] [address] [facility] Start: 07-03-2023 End: 07-03-2023 Patient encounter procedure 07/03/2023 12:30 PM EST Infusion Visit [facility] [address] [address] [facility] Start: 06-02-2023 End: 06-02-2023 ambulatory 06/02/2023 2:00 PM EST Infusion Visit [facility] [address] [place] [phone] [facility] Start: 05-26-2023 End: 05-26-2023 Patient encounter procedure 05/26/2023 1:40 PM EST Office Visit [facility] [address] [place] [address] Kalyan Proctor MD [address] [place] [address] [facility] Start: 04-28-2023 End: 04-28-2023 ambulatory 04/28/2023 1:30 PM EDT Infusion [facility] [address] [facility] [facility] [address] [place] [address] [facility] Start: 04-25-2023 End: 04-25-2023 Patient encounter procedure 04/25/2023 2:00 PM EDT Office Visit [facility] [address] [place] [address] Kalyan Proctor MD [address] [place] [address] [facility] Start: 04-04-2023 End: 04-04-2024 JAZIEL MULTIPLEX SCRN WITH REFLEX JAZIEL MULTIPLEX SCRN WITH REFLEX Lab Routine Seronegative rheumatoid arthritis Polyarthralgia Encounter for long-term current use of medication Expected: 04/04/2023, Expires: 04/04/2024 [facility] Comment on above: Expected: 04/04/2023, Expires: Start: 04-04-2023 End: 04-04-2024 BUN CREA BUN CREA Lab Routine Seronegative rheumatoid arthritis Polyarthralgia Encounter for long-term current use of medication Expected: 04/04/2023, Expires: 04/04/2024 [facility] Comment on above: Expected: 04/04/2023, Expires: 4 Start: 04-04-2023 End: 04-04-2024 C-reactive protein C REACTIVE PROTEIN Lab Routine Seronegative rheumatoid arthritis Polyarthralgia Encounter for long-term current use of medication Expected: 04/04/2023, Expires: 04/04/2024 [facility] Comment on above: Expected: 04/04/2023, Expires: 4 Start: 04-04-2023 End: 04-04-2024 PROMETHEUS TPMT GENETICS PROMETHEUS TPMT GENETICS Lab Routine Seronegative rheumatoid arthritis Polyarthralgia Encounter for long-term current use of medication Expected: 04/04/2023, Expires: 04/04/2024 [facility] Comment on above: Expected: 04/04/2023, Expires: Start: 04-04-2023 End: 04-04-2024 Urinalysis URINALYSIS Fluids Routine Seronegative rheumatoid arthritis Polyarthralgia Encounter for long-term current use of medication Expected: 04/04/2023, Expires: 04/04/2024 [facility] Comment on above: Expected: 04/04/2023, Expires: Start: 04-04-2023 End: 04-04-2023 Patient encounter procedure 04/04/2023 11:20 AM EDT Office Visit [facility] [address] [place] [address] Kalyan Proctor MD [address] [place] [address] [facility] Start: 03-24-2023 End: 03-24-2023 ambulatory 03/24/2023 1:45 PM EDT Infusion Visit [facility] [address] [place] [address] [place] [phone] [facility] Start: 03-24-2023 End: 03-24-2023 Patient encounter procedure 03/24/2023 1:00 PM EDT Infusion Visit [facility] [address] [address] [facility] Start: 03-14-2023 Influenza vaccination [facility] Start: 02-17-2023 End: 02-17-2023 Patient encounter procedure 02/17/2023 1:00 PM EDT Infusion Visit [facility] [address] [address] [facility] Start: 01-17-2023 End: 01-17-2023 Patient encounter procedure [facility] Start: 01-15-2023 End: 01-15-2023 ambulatory 01/15/2023 Infusion [facility] Start: 12-24-2022 End: 12-24-2022 Patient encounter procedure 12/24/2022 Office Visit Rheumatology Kalyan Proctor MD [address] [place] [address] [facility] Start: 12-10-2022 End: 12-10-2022 ambulatory 12/10/2022 Infusion [facility] Start: 11-04-2022 End: 11-04-2022 ambulatory 11/04/2022 Infusion Visit [facility] Start: 09-27-2022 End: 09-27-2022 ambulatory 09/27/2022 Infusion Visit [facility] Start: 09-13-2022 End: 09-13-2022 Patient encounter procedure 09/13/2022 Office Visit Rheumatology Kalyan Proctor MD [address] [place] [address] [facility] Start: 08-23-2022 End: 08-23-2022 ambulatory 08/23/2022 Infusion Visit [facility] Start: 07-19-2022 End: 07-19-2022 ambulatory 07/19/2022 Infusion Visit [facility] Start: 06-14-2022 End: 06-14-2022 ambulatory 06/14/2022 Infusion Visit [facility] Start: 06-10-2022 End: 06-10-2022 Patient encounter procedure 06/10/2022 Office Visit Rheumatology Kalyan Proctor MD [address] [place] [address] [facility] Start: 05-03-2022 End: 05-03-2022 ambulatory 05/03/2022 Infusion Visit [facility] Start: 03-29-2022 End: 03-29-2022 ambulatory 03/29/2022 Infusion Visit [facility] Start: 03-15-2022 End: 03-15-2022 Patient encounter procedure 03/15/2022 Office Visit Rheumatology Kalyan Proctor MD [address] [place] [address] [facility] Start: 03-14-2022 Influenza vaccination [facility] Start: 03-08-2022 End: 03-08-2022 ambulatory 03/08/2022 Infusion Visit [facility] Start: 03-01-2022 End: 03-01-2022 Patient encounter procedure 03/01/2022 Office Visit Rheumatology Kalyan Proctor MD [address] [place] [address] [facility] Start: 02-22-2022 End: 02-22-2022 ambulatory 02/22/2022 Infusion Visit [facility] Start: 01-25-2022 End: 01-25-2022 ambulatory 01/25/2022 Infusion Visit [facility] Start: 01-18-2022 End: 01-18-2022 ambulatory 01/18/2022 Infusion Visit [facility] Start: 12-14-2021 End: 12-14-2021 ambulatory 12/14/2021 Infusion Visit [facility] Start: 11-19-2021 End: 11-19-2021 Patient encounter procedure 11/19/2021 Office Visit Rheumatology Kalyan Proctor MD [address] [place] [address] [facility] Start: 05-04-2021 End: 05-04-2021 Patient encounter procedure 05/04/2021 Office Visit Rheumatology Kalyan Proctor MD [address] [place] [address] [facility] Start: 03-30-2021 End: 03-30-2021 ambulatory 03/30/2021 Infusion Visit [facility] Start: 03-14-2021 Influenza vaccination INFLUENZA VACCINE (#1) [facility] Start: 12-15-2020 COVID-19 VACCINE (2 - Booster for Fernandez series) COVID-19 VACCINE (2 - Booster for Fernandez series) [facility] Start: 11-17-2020 COVID-19 VACCINE (2 - Fernandez risk series) COVID-19 VACCINE (2 - Fernandez risk series) [facility] Start: 08-30-2020 PNEUMOCOCCAL VACCINE SERIES (2 - PCV) PNEUMOCOCCAL VACCINE SERIES (2 - PCV) [facility] Start: 08-30-2020 PNEUMOCOCCAL VACCINE SERIES (2 of 2 - PCV) PNEUMOCOCCAL VACCINE SERIES (2 of 2 - PCV) [facility] Start: 2019 Fasting lipid profile LIPID SCREENING [facility] Start: 2019 Lipid panel LIPID SCREENING [facility] Start: 2019 Screening for malignant neoplasm of breast MAMMOGRAM SCREENING DISCUSSION [facility] Start: 2019 Screening mammography MAMMOGRAM SCREENING DISCUSSION [facility] Start: 05-13-2019 Microscopic observation [Identifier] in Cervix by Cyto stain PAP SMEAR [facility] Start: 05-13-2019 Screening for malignant neoplasm of cervix PAP SMEAR [facility] Start: 05-13-2017 Screening for malignant neoplasm of cervix [facility] Start: 2009 Screening for malignant neoplasm of cervix [facility] Start: 2000 Screening for malignant neoplasm of cervix Pap Smear [facility] Start: 1998 Hepatitis B vaccination HEP B VACCINE (1 of 3 - 19+ 3-dose series) [facility] Start: 1998 PNEUMOCOCCAL VACCINE SERIES (1 of 1 - PPSV23) PNEUMOCOCCAL VACCINE SERIES (1 of 1 - PPSV23) [facility] Start: 1998 Zoster vaccine hzv live for subcutaneous use ZOSTER (SHINGLES) VACCINE (1 of 2) [facility] Start: 1985 PNEUMOCOCCAL VACCINE SERIES (1 - PCV) PNEUMOCOCCAL VACCINE SERIES (1 - PCV) [facility] Start: 1979 Hepatitis B vaccination HEP B VACCINE (1 of 3 - 3-dose series) [facility] Start: 1979 Screening for malignant neoplasm of colon [facility] JAZIEL MULTIPLEX SCRN W ITH REFLEX JAZIEL MULTIPLEX SCRN WITH REFLEX Lab Routine Seronegative rheumatoid arthritis Polyarthralgia Encounter for long-term current use of medication 04/28/2023 11:49 AM EDT [facility] IMMUNOFIXATION SERUM IMMUNOFIXAT ION SERUM Lab Routine Seronegative rheumatoid arthritis Polyarthralgia Rheumatoid arthritis involving multiple sites with positive rheumatoid factor intermediate current use of systemic steroids 03/24/2023 1:56 PM EDT [facility] M TUBERCULOSIS BY QUANTIFERON, BLD M TUBERCULOSIS BY QUANTIFERON, BLD Lab Routine Seronegative rheumatoid arthritis Behcet's disease 09/30/2022 12:45 PM EDT [facility] M TUBERCULOSIS BY QUANTIFERON, BLD M TUBERCULOSIS BY QUANTIFERON, BLD Lab Routine Seronegative rheumatoid arthritis Polyarthralgia Rheumatoid arthritis involving multiple sites with positive rheumatoid factor 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 03/24/2023 1:56 PM EDT [facility] MONOCLONAL PROT IMMU NO, SERUM MONOCLONAL PROT IMMUNO, SERUM Lab Routine Seronegative rheumatoid arthritis Polyarthralgia Rheumatoid arthritis involving multiple sites with positive rheumatoid factor 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 03/24/2023 1:56 PM EDT [facility] PROMETHEUS TPMT GENETICS PROMETH EUS TPMT GENETICS Lab Routine Seronegative rheumatoid arthritis Polyarthralgia Encounter for long-term current use of medication 04/28/2023 11:49 AM EDT [facility] Protein electrophoresis PROTEIN ELECTROPHORESIS Lab Routine Seronegative rheumatoid arthritis Polyarthralgia Rheumatoid arthritis involving multiple sites with positive rheumatoid factor intermediate current use of systemic steroids 03/24/2023 1:56 PM EDT [facility] THIN PREP TIS PAP AN D HR HPV DNA THIN PREP TIS PAP AND HR HPV DNA Pathology and Cytology Routine Well woman exam with routine gynecological exam Ordered: 08/16/2024 [facility] Work Phone: Comment on above: Ordered: 08/16/2024 Immunizations Immunization Date Immunization Notes Care Provider Hosea frye 11-26-2016 tetanus toxoid, redu rubin diphtheria toxoid, and acellular pertussis [facility], [facility] 10-11-2014 tetanus toxoid, redu rubin diphtheria toxoid, and acellular pertussis vaccine, adsorbed [facility] 09-29-2013 PPD (Mantoux Test) [facility] Payers Date Payer Category Payer Self-pay [id number] 2023 Medicare (Managed Care) [facility] MEDICARE [id number] 2019 Medicaid MEDICAID MEDICAI D [id number] 2019-Present [address] [place] [address] [id number]. [id number] 2019 Medicaid [id number]. [id number] 2018 Medicaid [id number] 2015 Medicare MEDICARE MEDICAR E A AND B [id number] 2015-Present [address] [place] [address] [id number] 2015 Medicare [id number]. [id number] 2004 Medicare [id number] [id number] 1979 Unknown [id number] 2.16.840.1.505788.3.579.2. 1286 1979 Unknown [id number] 2.16.840.1.604362.3.579.2. 1286 1979 Unknown [id number] 2.16.840.1.916614.3.579.2. 1286 1979 Unknown [id number] 2.16.840.1.654708.3.579.2. 1286 1979 Unknown [id number] 2.16.840.1.044343.3.579.2. 9 1979 Unknown [id number] 2.16.840.1.065456.3.579.2. 1259 1979 Unknown [id number] 2.16.840.1.680223.3.579.2. 1259 1979 Unknown [id number] 2.16.840.1.076370.3.579.2. 1259 1979 Unknown [id number] 2.16.840.1.568129.3.579.2. 1259 1979 Unknown [id number] 2.16.840.1.349435.3.579.2. 1259 1979 Unknown [id number] 2.16.840.1.424999.3.579.2. 594 1979 Unknown [id number] 2.16.840.1.046698.3.579.2. 594 1979 Unknown [id number] 2.16.840.1.147648.3.579.2. 594 1979 Unknown [id number] 2.16.840.1.918762.3.579.2. 594 1979 Unknown [id number] 2.16.840.1.468212.3.579.2. 594 1979 Unknown [id number] 2.16.840.1.944703.3.579.2. 594 1979 Unknown [id number] 2.16.840.1.511094.3.579.2. 594 1979 Unknown [id number] 2.16.840.1.505213.3.579.2. 594 1979 Unknown [id number] 2.16.840.1.877738.3.579.2. 594 1979 Unknown [id number] 2.16.840.1.174529.3.579.2. 594 1979 Unknown [id number] 2.16840.1.977371.3.579.2. 594 1979 Unknown [id number] 2.16840.1.011782.3.579.2. 594 1979 Unknown [id number] 2.16840.1.699616.3.579.2. 594 Unknown [id number] 2.16.840.1.901417.3.579.2. 531 Social History Date Type Detail Facility Tobacco smoking stat us RIIS Current every day smoker [facility] Start: 12-29-2020 End: 06-14-2024 Alcohol intake Current non-drinker of alcohol (finding) [facility] Start: 12-29-2020 End: 04-20-2024 Alcohol intake [facility] Start: 05-12-2014 End: 04-04-2023 Tobacco Comment pt has now decreased to a 1/2 a ppd. [facility] Start: 1980 Sex Assigned At Not on file [facility] Exposure to SARS-CoV -2 (event) Not sure [facility] Start: 12-09-2014 End: 10-27-2023 Tobacco smoking status NHIS Smokes tobacco daily [facility] History of tobacco use Cigarette Smoker [facility] Start: 12-09-2014 End: 10-27-2023 Tobacco use and exposure Smokeless tobacco non-user [facility] Start: 09-03-2022 End: 09-23-2022 Exposure to SARS-CoV-2 (event) Unable to assess [facility] Start: 09-13-2022 End: 04-20-2024 Tobacco use panel [facility] [place] Depression Score 0 [facility] Start: 06-27-2023 Gender identity Identifies as female gender (finding) [facility] History of tobacco use Passive smoker [facility] Start: 08-11-2023 End: 08-16-2024 Alcohol intake Lifetime non-drinker (finding) [facility] Within the last year , have you been afraid of your partner or ex-partner? No [facility] Are you now , , , , never or living with a partner? [facility] How often do you hav e 6 or more drinks on 1 occasion? Never [facility] Do you feel stress - tense, restless, nervous, or anxious, or unable to sleep at night because your mind is troubled all the time - these days [OSQ] Not at all [facility] (I/We) worried wheth er (my/our) food would run out before (I/we) got money to buy more. Never true [facility] Start: 1980 Sex Assigned At Female [facility] Start: 06-27-2023 Sexual orientation Heterosexual (finding) [facility] Start: 08-26-2023 End: 08-26-2023 Tobacco smoking status NHIS Smoker (finding) [facility] Start: 03-12-2024 Tobacco smoking status NHIS Ex-smoker [facility] How hard is it for y ou to pay for the very basics like food, housing, medical care, and heating Not very hard [facility] Do you feel stress - tense, restless, nervous, or anxious, or unable to sleep at night because your mind is troubled all the time - these days [OSQ] To some extent [facility] Goals Date Patient Goal Desired Activity /State Personal health goal Comment on above: Formatting of this n ote might be different from the original. Patient will understand medications, contraindications and post care of IV/injection site. Comment on above: Formatting of this n ote might be different from the original. Patient will understand medications, contraindications and post care of IV/injection site. Clinical Notes 02-05-2021 to 08-16-2024 ROBERTO Anderson - 08/16/2024 11:00 AM HEIDE Renee - 06/28/2024 12:30 PM Janneth Gasca - 06/14/2024 8:20 AM Ilana Proctor MD - 06/14/2024 8:20 AM ESTPatient Instructions Note Date & Type Note Facility 08-16-2024 History of Presen t illness Narrative Reason for Appointment: Patient ID: Ayleen Ocasio is a 44 y.o. female who presents for [facility] Patient presents today for Annual Exam. 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 Annual physical exam 06/11/2023 Smoker 06/11/2023 Screening mammogram, encounter for 06/11/2023 Left upper quadrant abdominal pain 06/11/2023 Abdominal wall mass of left upper quadrant 06/11/2023 intermediate systemic steroid user 06/11/2023 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 Tobacco dependency 06/11/2023 Encounter to establish care 06/11/2023 Medicare annual wellness visit, subsequent 07/21/2023 Seronegative rheumatoid arthritis ([facility]) 01/25/2015 MVP (mitral valve prolapse) 08/25/2023 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 07/26/2015 Family history of cleft palate 06/17/2014 Pain of both wrist joints 07/26/2015 Arthralgia 12/27/2011 Dental abscess 11/18/2023 Resolved Ambulatory Problems Diagnosis Date Noted No Resolved Ambulatory Problems No Additional Past Medical History HISTORY PAST MEDICAL HISTORY SOCIAL HISTORY Past Medical History: Diagnosis Date 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[facility]) Social History Tobacco Use Smoking status: Every Day Current packs/day: 0.50 Average packs/day: 0.5 packs/day for 30.0 years (15.0 ttl pk-yrs) Types: Cigarettes Passive exposure: Current Smokeless tobacco: Never Vaping Use Vaping status: Never Used Substance Use Topics Alcohol use: Never Drug use: Yes Types: Marijuana FAMILY HISTORY Family History Problem Relation Name Age of Onset Cervical cancer Mother SURGICAL HISTORY Past Surgical History: Procedure Laterality Date CATARACT EXTRACTION BILATERAL W/ ANTERIOR VITRECTOMY Bilateral 2015 TUBAL LIGATION 2016 [place] REVIEW OF SYSTEMS Review of Systems: Review of Systems Constitutional: Negative. HENT: Negative. Eyes: Negative. Respiratory: Negative. Cardiovascular: Negative. Gastrointestinal: Negative. Genitourinary: Negative. Musculoskeletal: Negative. Skin: Negative. Neurological: Negative. All other systems reviewed and are negative. Hematological: Negative. Endocrine: Negative. Allergic/Immunologic: Negative. OBJECTIVE Objective: Physical Exam Constitutional: Appearance: Normal appearance. She is well-developed. Genitourinary: Vulva normal. Right Adnexa: not tender and no mass present. Left Adnexa: not tender and no mass present. No cervical discharge. Breasts: Breasts are soft. Right: Normal. Left: Normal. HENT: Head: Normocephalic. Nose: Nose normal. Mouth/Throat: Mouth: Mucous membranes are moist. Cardiovascular: Rate and Rhythm: Normal rate and regular rhythm. Pulmonary: Effort: Pulmonary effort is normal. Breath sounds: Normal breath sounds. Abdominal: General: Bowel sounds are normal. There is no distension. Palpations: Abdomen is soft. Tenderness: There is no abdominal tenderness. There is no guarding or rebound. Musculoskeletal: General: No swelling. Normal range of motion. Cervical back: Normal range of motion. Right lower leg: No edema. Left lower leg: No edema. Neurological: General: No focal deficit present. Mental Status: She is alert and oriented to person, place, and time. Skin: General: Skin is warm and dry. Psychiatric: Mood and Affect: Mood normal. Behavior: Behavior normal. Vitals and nursing note reviewed. Exam conducted with a tar and ammonia pump operator present. Vitals: Estimated body mass index is 18.16 kg/m as calculated from the following: Height as of 11/18/23: 5' 9 . Weight as of 10/15/24: 123 lb. BP: No LMP recorded. ASSESSMENT & PLAN ICD-10-CM 1. Well woman exam with routine gynecological exam Z01.419 THIN PREP TIS PAP AND HR HPV DNA Annual Exam: Patient presents today for an annual exam. Patient states she is doing well and has no complaints. Pap was obtained without difficulty. No orders of the defined types were placed in this encounter. Follow Up: Patient is to return in one year for annual unless needed otherwise. Documented by Lydia Peterson MA on behalf of: ROBERTO Anderson documented in this encounter [facility] 06-28-2024 History of Presen t illness Narrative As the covering infusion attending on 06/28/2024, I was continuously available for direct communication with the nurse caring for this patient, including physical presence in the hospital and independent review of the patient s medical chart as necessary. Melissa Garcia MD Layout Inspector Department of Internal Medicine Division of Rheumatology/Immunology [facility] documented in this encounter [facility] 06-14-2024 History of Presen t illness Narrative Patients Name, , PCP and pharmacy verfied by FLIGHT CONTROL SPECIALIST Wrap up done Ayleen Ocasio was seen in the office today for her seronegative Rheumatoid Arthritis doing well with her remicade no side effects. Left ear fullness feels like in canal with decreased hearing and wants to see ENT.. Overall, she has been experiencing mild symptoms. Symptoms have been present past several months. Her joint pain has been intermittent. She does not describe joint swelling, joint redness or joint heat. She denies morning stiffness. She denies fever / chills. Pain is aching in nature, exacerbated by activity and to some extent diminished with rest or medications. Stamina has been good. She Current Outpatient Medications Medication Sig Dispense Refill azaTHIOprine 50 MG tablet Take 1 tablet by mouth daily. 30 tablet 3 DISABILITY PLACARD Disability placard end date 2023 has arthritis needs placard 4 years cannot walk 30 feet 1 Each 0 DISABILITY PLACARD Disability placard end date 2028 has arthritis cannot walk 20 feet needs placard 5 years 1 Each 0 DISABILITY PLACARD Disability placard end date 2028 has arhtritis cannot walk 20 feet needs placard 5 years 1 Each 0 InFLIXimab 100 MG Recon Soln by Intravenous route. Every 5 weeks predniSONE 5 MG tablet Take 1 tablet by mouth 2 times daily. 180 tablet 0 DISABILITY PLACARD Disability placard end date 2028 has arthritis needs placard 5 years cannot walk 30 feet From 12/21/2019 1 Each 0 No current facility-administered medications for this visit. . She denies any side effects from the above medications Infusion Visit on 05/25/2024 Component Date Value Ref Range Status WBC Count 05/25/2024 6.74 3.99 - 11.19 K/uL Final RBC Count 05/25/2024 4.86 3.91 - 5.04 M/uL Final Hemoglobin 05/25/2024 14.8 11.4 - 15.2 g/dL Final Hematocrit 05/25/2024 44.7 (H) 34.9 - 44.3 % Final Mean Cell Volume 05/25/2024 92.0 79.6 - 97.7 fL Final Mean Cell Hgb 05/25/2024 30.5 25.9 - 33.9 pg Final Mean Cell Hgb Conc 05/25/2024 33.1 31.4 - 35.9 g/dL Final RBC Distribution 05/25/2024 13.7 10.8 - 14.9 % Final Platelet Count 05/25/2024 197 150 - 393 K/uL Final Mean Platelet Volume 05/25/2024 11.7 8.5 - 12.2 fL Final DIFF STATUS 05/25/2024 Electronic Differential Final Segs + Bands Auto 05/25/2024 72.6 % Final Immature Grans % 05/25/2024 0.3 % Final Lymphocyte % Auto 05/25/2024 24.2 % Final Monocyte % Auto 05/25/2024 2.2 % Final Eosinophil % Auto 05/25/2024 0.3 % Final Basophil % Auto 05/25/2024 0.4 % Final Nucleated RBC 05/25/2024 0.0 <=0.2 /100 WBC Final Segs + Bands,Absolute Auto 05/25/2024 4.89 1.64 - 7.28 K/uL Final Immature Grans Absolute 05/25/2024 <0.04 <=0.08 K/uL Final Abs Lymph Auto 05/25/2024 1.63 1.16 - 3.51 K/uL Final Abs Door Auto 05/25/2024 0.15 (L) 0.22 - 0.87 K/uL Final Abs Eos Auto 05/25/2024 <0.04 0.00 - 0.42 K/uL Final Abs Baso Auto 05/25/2024 <0.04 0.00 - 0.15 K/uL Final . Past medical history and complete review of systems are otherwise negative for fevers, other constitutional symptoms I have today reviewed the patients medical, surgical and other pertinent history in detail and have updated medication and allergy information in the computerized patient record. Blood pressure 110/60, pulse 75, height 1.753 m (5' 9 ), weight 58 kg (127 lb 12.8 oz), SpO2 98%, not currently . Skin showed no rash. Eyes were clear. Extremities demonstrated no varicosities or peripheral edema. Joint examination showed mild synovitis. Right upper, right lower, left upper and left lower extremities demonstrated normal range of motion, tonus, stability and inspection . Assessment and Plan: She is doing well tolerating azathioprine. no sides no changes in Rx continue remicade return October. Encounter Diagnoses Name Primary? Seronegative rheumatoid arthritis Yes Family history of cleft palate 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 Decreased hearing of left ear Hearing loss due to cerumen impaction, left Polyarthralgia Encounter for long-term current use of medication Rheumatoid arthritis involving multiple sites with positive rheumatoid factor Orders Placed This Encounter AMB REFERRAL TO ENT azaTHIOprine 50 MG tablet predniSONE 5 MG tablet Disposition: No disposition on file. documented in this encounter [facility] 05-25-2024 History of Presen t illness Narrative Infusion center attending 05/25/24 documented in this encounter [facility] 05-25-2024 Miscellaneous Notes I have reviewed enclosed results which are satisfactory. documented in this encounter [facility] 05-25-2024 Progress note Formatting of t his note might be different from the original. I have reviewed enclosed results which are satisfactory. [facility] 04-27-2024 History of Presen t illness Narrative Associated Problem(s): 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CMS/HCC) Follows with Rheumatology @ [facility] Dr. Proctor Follows closely every 3 months Has routine lab worked completed frequently. Currently taking Imuran 50mg daily Prednisone 10mg Daily Remicade Infusion Once every 5 weeks. Images from the original note were not included. Subjective Patient ID: Ayleen Ocasio is a 43 y.o. female who presents for Follow-up. MIRZA Abbasi is a 43 year old female who presents today for a routine follow up. She offers no concerns or complaints today. Bechet's Disease- Follows with Rheumatology @ [facility] Dr. Proctor Follows closely every 3 months Has routine lab worked completed frequently. Currently taking Imuran 50mg daily Prednisone 10mg Daily Remicade Infusion Once every 5 weeks. Will order wellness labs at next OV. Review of Systems Constitutional: Negative for activity change, appetite change, chills, diaphoresis, fatigue, fever and unexpected weight change. HENT: Negative for congestion, ear pain, rhinorrhea, sinus pressure, sinus pain, sneezing, sore throat, trouble swallowing and voice change. Eyes: Negative for visual disturbance. Respiratory: Negative for cough, chest tightness, shortness of breath and wheezing. Cardiovascular: Negative for chest pain, palpitations and leg swelling. Gastrointestinal: Negative for abdominal distention, abdominal pain, blood in stool, constipation, diarrhea and vomiting. Genitourinary: Negative for decreased urine volume, dysuria, flank pain, frequency, hematuria and urgency. Musculoskeletal: Negative for arthralgias, gait problem, joint swelling and myalgias. Skin: Negative for rash. Neurological: Negative for dizziness, tremors, syncope, weakness, light-headedness and headaches. Psychiatric/Behavioral: Negative for decreased concentration and suicidal ideas. The patient is not nervous/anxious. Hematological: Does not bruise/bleed easily. Endocrine: Negative for cold intolerance, heat intolerance, polydipsia, polyphagia and polyuria. Objective Physical Exam Vitals reviewed. Constitutional: Appearance: Normal appearance. HENT: Head: Normocephalic and atraumatic. Right Ear: Tympanic membrane normal. Left Ear: Tympanic membrane normal. Nose: Nose normal. Mouth/Throat: Mouth: Mucous membranes are moist. Pharynx: Oropharynx is clear. Eyes: Pupils: Pupils are equal, round, and reactive to light. Cardiovascular: Rate and Rhythm: Normal rate and regular rhythm. Pulses: Normal pulses. Heart sounds: Normal heart sounds. Pulmonary: Effort: Pulmonary effort is normal. Breath sounds: Normal breath sounds. Abdominal: General: Abdomen is flat. Bowel sounds are normal. Palpations: Abdomen is soft. Musculoskeletal: General: Normal range of motion. Cervical back: Normal range of motion. Skin: General: Skin is warm and dry. Capillary Refill: Capillary refill takes less than 2 seconds. Neurological: General: No focal deficit present. Mental Status: She is alert and oriented to person, place, and time. Psychiatric: Mood and Affect: Mood normal. Behavior: Behavior normal. Assessment/Plan Problem List Items Addressed This Visit 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CMS/HCC) - Primary Follows with Rheumatology @ [facility] Dr. Proctor Follows closely every 3 months Has routine lab worked completed frequently. Currently taking Imuran 50mg daily Prednisone 10mg Daily Remicade Infusion Once every 5 weeks. Screening mammogram, encounter for Relevant Orders Bilateral screening mammogram with tomosynthesis documented in this encounter [facility] 04-27-2024 Instructions Collette Salinas NP - 04/27/2024 2:30 PM EDT Call in July for wellness labs to be ordered. documented in this encounter [facility] 04-20-2024 History of Presen t illness Narrative Infusion center attending 04/20/24 documented in this encounter [facility] 03-17-2024 Note The M. Tuberculosis antigen levels cannot be correlated to stage or degree of infection, response to therapy or likelihood for progression to active disease. Results from [facility] TB Gold Plus must be used in conjunction with individual epidemiological history, current medical status, and results of other diagnostic evaluation. [facility] 03-16-2024 History of Presen t illness Narrative Infusion center attending 03/16/24 documented in this encounter [facility] 03-12-2024 History of Presen t illness Narrative Patients name and date of verified Ayleen Ocasio was seen in the office today for her seronegative Rheumatoid Arthritis and she is doing quit well with remicade therapy. Overall, she has been experiencing mild symptoms. Symptoms have been present past several months. Her joint pain has been intermittent. She does not describe joint swelling, joint redness or joint heat. She denies morning stiffness. She denies fever / chills. Pain is aching in nature, exacerbated by activity and to some extent diminished with rest or medications. Stamina has been good. She Current Outpatient Medications Medication Sig Dispense Refill azaTHIOprine 50 MG tablet Take 1 tablet by mouth daily. 30 tablet 3 DISABILITY PLACARD Disability placard end date 2023 has arthritis needs placard 4 years cannot walk 30 feet 1 Each 0 DISABILITY PLACARD Disability placard end date 2028 has arthritis needs placard 5 years cannot walk 30 feet From 12/21/2019 1 Each 0 InFLIXimab 100 MG Recon Soln by Intravenous route. Every 5 weeks predniSONE 5 MG tablet take 1 tablet by mouth 2 times a day 180 tablet 0 DISABILITY PLACARD Disability placard end date 2028 has arthritis cannot walk 20 feet needs placard 5 years 1 Each 0 DISABILITY PLACARD Disability placard end date 2028 has arhtritis cannot walk 20 feet needs placard 5 years 1 Each 0 No current facility-administered medications for this visit. . She denies any side effects from the above medications. Past medical history and complete review of systems are otherwise negative for fevers, other constitutional symptoms I have today reviewed the patients medical, surgical and other pertinent history in detail and have updated medication and allergy information in the computerized patient record. Blood pressure 128/63, pulse 83, height 1.753 m (5' 9 ), weight 54.4 kg (120 lb), SpO2 99%, not currently . Skin showed no rash. Eyes were clear. Extremities demonstrated no varicosities or peripheral edema. Joint examination showed mild synovitis. Right upper, right lower, left upper and left lower extremities demonstrated normal range of motion, tonus, stability and inspection . Assessment and Plan: She is doiig well no side effects no changes remicade has been effective and saaft\ety profile with rare past reports infections neurologic issues and lymphoma noted. no changes. Encounter Diagnoses Name Primary? Seronegative rheumatoid arthritis Yes Rheumatoid arthritis involving multiple sites with positive rheumatoid factor Polyarthralgia Encounter for long-term current use of medication Orders Placed This Encounter DISABILITY PLACARD DISABILITY PLACARD DISABILITY PLACARD DISABILITY PLACARD Disposition: No disposition on file. Procedures documented in this encounter [facility] 02-10-2024 History of Presen t illness Narrative Infusion center attending 02/10/24 documented in this encounter [facility] 01-06-2024 History of Presen t illness Narrative Infusion center attending 01/06/24 documented in this encounter [facility] 11-28-2023 History of Presen t illness Narrative I was the supervising clinic provider today. I was not present in the exam/treatment room while the service was being provided, but I was in the immediate office suite to render assistance if needed documented in this encounter [facility] 11-28-2023 Miscellaneous Notes I have reviewed enclosed results which are satisfactory. documented in this encounter [facility] 11-28-2023 Progress note Formatting of t his note might be different from the original. I have reviewed enclosed results which are satisfactory. [facility] 11-14-2023 History of Presen t illness Narrative Patients name and date of verified Ayleen Ocasio was seen in the office today for her seronegative Rheumatoid Arthritis and Behcets . Overall, she has been experiencing mild symptoms. Symptoms have been present past several weeks dong well but has a soft limp I the hard pallet that when pressed oozes pus - was seen and she was prescribed Clindamycin no fever chills. Her joint pain has been intermittent. She does not describe joint swelling, joint redness or joint heat. She denies morning stiffness. She denies fever / chills. Pain is aching in nature, exacerbated by activity and to some extent diminished with rest or medications. Stamina has been good. She Current Outpatient Medications Medication Sig Dispense Refill azaTHIOprine 50 MG tablet Take 1 tablet by mouth daily. 30 tablet 3 clindamycin 300 MG capsule Take 1 capsule by mouth Three times a day. DISABILITY PLACARD Disability placard end date 2023 has arthritis needs placard 4 years cannot walk 30 feet 1 Each 0 InFLIXimab 100 MG Recon Soln by Intravenous route.. predniSONE 5 MG tablet take 1 tablet by mouth twice a day 180 tablet 0 No current facility-administered medications for this visit. . She denies any side effects from the above medications azathioprine is well T tolerated no sides.. Past medical history and complete review of systems are otherwise negative for fevers, other constitutional symptoms I have today reviewed the patients medical, surgical and other pertinent history in detail and have updated medication and allergy information in the computerized patient record. Blood pressure 92/64, pulse 94, height 1.753 m (5' 9 ), weight 53.1 kg (117 lb), SpO2 97%, not currently . Skin showed no rash. Eyes were clear. Extremities demonstrated no varicosities or peripheral edema. Joint examination showed mild synovitis. Right upper, right lower, left upper and left lower extremities demonstrated normal range of motion, tonus, stability and inspection . Assessment and Plan: She is doing quite well minimal fatigue. She is going to consult a dentist regarding the upper hard palate and I see\ nothing today may see oral surg perio. \ Encounter Diagnoses Name Primary? Seronegative rheumatoid arthritis Yes Behcet's disease Polyarthralgia Encounter for long-term current use of medication Orders Placed This Encounter azaTHIOprine 50 MG tablet Disposition: No disposition on file. documented in this encounter [facility] 10-16-2023 History of Presen t illness Narrative Infusion center attending DOS 10/16/2023 documented in this encounter [facility] 09-11-2023 History of Presen t illness Narrative Infusion center attending DOS 09/11/2023 documented in this encounter [facility] 08-26-2023 Procedure note [facility] 08-12-2023 Evaluation note Encounter Date Diagnosis Assessment Notes Jul, GERD (gastroesopha geal reflux disease) (ICD-10 - K21.9) Continue omeprazole 40 mg once a day Jul, Bloating (ICD-10 - R14.0) Jul, Abdominal pain (ICD-10 - R10.9) Jul, Dyspepsia (ICD-10 - K30) Jul, Early satiety (ICD-10 - R68.81) [employer] Other 12-22-2023 History of Present illness Narrative* Joelle Irving MA - 07/04/2023 3:40 PM EST Patient name and has been verified by this MA. * Kalyan Proctor MD - 07/04/2023 3:40 PM EST Ayleen Ocasio was seen in the office today for her seronegative Rheumatoid Arthritis Behcets and she is doing well takes azathioprine and remicade and is well controlled. Overall, she has been experiencing mild symptoms. Symptoms have been present past several months. Her joint pain has been intermittent. She does not describe joint swelling, joint redness or joint heat. She denies morning stiffness. She denies fever / chills. Pain is aching in nature, exacerbated by activity and to some extent diminished with rest or medications. Stamina has been good. She Current Outpatient Medications Medication Sig Dispense Refill azaTHIOprine 50 MG tablet Take 1 tablet by mouth daily. 30 tablet 3 DISABILITY PLACARD Disability placard end date 2023 has arthritis needs placard 4 years cannot walk 30 feet 1 Each 0 InFLIXimab 100 MG Recon Soln by Intravenous route.. predniSONE 5 MG tablet Take 1 tablet by mouth 2 times daily. 180 tablet 0 No current facility-administered medications for this visit. . She denies any side effects from the above medications Infusion Visit on 07/03/2023 Component Date Value Ref Range Status Albumin 07/03/2023 4.6 3.5 - 5.0 g/dL Final Bilirubin Direct 07/03/2023 0.1 <0.3 mg/dL Final Bilirubin Total 07/03/2023 0.8 <1.5 mg/dL Final ALP 07/03/2023 64 32 - 126 U/L Final ALT 07/03/2023 8 (L) 9 - 48 U/L Final AST 07/03/2023 15 10 - 39 U/L Final Total Protein 07/03/2023 7.7 6.4 - 8.3 g/dL Final WBC Count 07/03/2023 11.98 (H) 3.99 - 11.19 K/uL Final RBC Count 07/03/2023 4.67 3.91 - 5.04 M/uL Final Hemoglobin 07/03/2023 15.0 11.4 - 15.2 g/dL Final Hematocrit 07/03/2023 45.7 (H) 34.9 - 44.3 % Final Mean Cell Volume 07/03/2023 97.9 (H) 79.6 - 97.7 fL Final Mean Cell Hgb 07/03/2023 32.1 25.9 - 33.9 pg Final Mean Cell Hgb Conc 07/03/2023 32.8 31.4 - 35.9 g/dL Final RBC Distribution 07/03/2023 15.2 (H) 10.8 - 14.9 % Final Platelet Count 07/03/2023 212 150 - 393 K/uL Final Mean Platelet Volume 07/03/2023 12.0 8.5 - 12.2 fL Final DIFF STATUS 07/03/2023 Electronic Differential Final Segs + Bands Auto 07/03/2023 79.8 % Final Immature Grans % 07/03/2023 0.5 % Final Lymphocyte % Auto 07/03/2023 15.1 % Final Monocyte % Auto 07/03/2023 4.0 % Final Eosinophil % Auto 07/03/2023 0.2 % Final Basophil % Auto 07/03/2023 0.4 % Final Nucleated RBC 07/03/2023 0.0 <=0.2 /100 WBC Final Segs + Bands,Absolute Auto 07/03/2023 9.56 (H) 1.64 - 7.28 K/uL Final Immature Grans Absolute 07/03/2023 0.06 <=0.08 K/uL Final Abs Lymph Auto 07/03/2023 1.81 1.16 - 3.51 K/uL Final Abs Door Auto 07/03/2023 0.48 0.22 - 0.87 K/uL Final Abs Eos Auto 07/03/2023 <0.04 0.00 - 0.42 K/uL Final Abs Baso Auto 07/03/2023 0.05 0.00 - 0.15 K/uL Final . Past medical history and complete review of systems are otherwise negative for fevers, other constitutional symptoms I have today reviewed the patients medical, surgical and other pertinent history in detail and have updated medication and allergy information in the computerized patient record. Blood pressure 118/72, pulse 69, height 1.753 m (5' 9 ), weight 54.3 kg (119 lb 9.6 oz), SpO2 99 %,not currently . Skin showed no rash. Eyes were clear. Extremities demonstrated no varicosities or peripheral edema. Joint examination showed mild synovitis. Right upper, right lower, left upper and left lower extremities demonstrated normal range of motion, tonus, stability and inspection . Assessment and Plan: She is doing well discussed rare past reports infections neurologic issues andlymphoma with TNF inhibitors. no change in Rx no sides. Encounter Diagnoses Name Primary? Behcet's disease Yes Seronegative rheumatoid arthritis Polyarthralgia Encounter for long-term current use of medication intermediate current use of systemic steroids return 4 mos documented in this [facility]12-21-2023 History of Present illness Narrative* Angella Thomas MD - 07/03/2023 12:30 PM EST Infusion center attending DOS 07/03/2023 documented in this [facility]12-21-2023 Miscellaneous Notes* Result Encounter Note - Kalyan Proctor MD - 07/03/2023 12:30 PM EST I have reviewed enclosed results which are satisfactory. [facility]* Result Encounter Note - Kalyan Proctor MD - 07/03/2023 12:30 PM EST I have reviewed enclosed results which are satisfactory. [facility]11-17-2023 History of Present illness Narrative* Rubina Campos RN - 05/30/2023 12:30 PM EST Pt declined AVS. * La Nena Bates DO - 05/30/2023 12:30 PM EST [facility] Attending 05/30/2023 La Nena Bates DO documented [facility] Evaluation note * Encounter Date Diagnosis Assessment Notes Treatment Notes Treatment Clinical Notes Apr, GERD (gastroesophageal reflux disease) (ICD-10 - K21.9) Patient reports that she has some GERD symptoms and is currently on Omeprazole 20 mg daily and will increase to 40 mg daily. Prescription sent to pharmacy today Patient advised to take omeprazole 30 minutes prior to her first meal of the day RTO 2 months Apr, Bloating (ICD-10 - R14.0) Pateint reports that she feels very bloated and that it is pushing her rib out and would like to be referred to [facility] [place] [employer] Other 10-16-2023 History of Present illness Narrative* Hollie Leon RN - 04/28/2023 12:00 PM EDT Pt refused AVS. * Rachael Crockett MD - 04/28/2023 12:00 PM EDT Infusion Center Attending Staff on 04/28/2023 . [facility] Miscellaneous Notes* Result Encounter Note - Kalyan Proctor MD - 04/28/2023 12:00 PM EDT I have reviewed enclosed results which are satisfactory. [facility] Progress note* Result Encounter Note - Kalyan Proctor MD - 04/28/2023 12:00 PM EDT I have reviewed enclosed results which are satisfactory. [facility] History of Present illness Narrative* Sweta Waite - 04/04/2023 11:20 AM EDT Patients name and date of verified Medications reviewed with patient Any questions about your medications or need more information? No Any concerns, such as cost or side effects from your medications? No Any hospitalizations, ED or other specialist visits since your last appointment with us? No Patient offered flu vaccine? yes Patient accepted flu vaccine ? NO Received else turpin? NO * Kalyan Proctor MD - 04/04/2023 11:20 AM EDT Ayleen Ocasio was seen in the office today for her Rheumatoid Arthritis and she is having lower extremity symptoms - took prednisone that was helpful and is now doing better but she has not been controlled with the methotrexate . Overall, she has been experiencing moderate symptoms. Symptoms have been present past several months. Her joint pain has been intermittent. She does not describe joint swelling, joint redness or joint heat. She denies morning stiffness. She denies fever / chills. Pain is aching in nature, exacerbated by activity and to some extent diminished with rest or medications. Stamina has been fair. She Current Outpatient Medications Medication Sig Dispense Refill DISABILITY PLACCRUZ Disability placcruz end date 2023 has arthritis needs placard 4 years cannot walk 30 feet 1 Each 0 InFLIXimab 100 MG Recon Soln by Intravenous route.. predniSONE 5 MG tablet Take 1 tablet by mouth 2 times daily. 180 tablet 0 azaTHIOprine 50 MG tablet Take 1 tablet by mouth daily. 30 tablet 3 No current facility-administered medications for this visit. . She denies any side effects from the above medications She denies any side effects from the methotrexate such as cough, shortness of breath or bloody diarrhea and will continue to take above dose. Patient has been previously informed that Methotrexate therapy requires CBC, Platelets, AST, ALT, Serum Creatinine and Albumin every 8-10 weeks. These tests must be performed at a lab near home or here to be included in our database for review. I reviewed her laboratory studies in our database which include: WBC (WHITE BLOOD COUNT) Date Value Ref Range Status 01/29/2019 7.64 3.99 - 11.19 K/uL Final WBC Count Date Value Ref Range Status 03/24/2023 9.90 3.99 - 11.19 K/uL Final HEMOGLOBIN (HGB) Date Value Ref Range Status 01/29/2019 14.8 11.4 - 15.2 g/dL Final Hemoglobin Date Value Ref Range Status 03/24/2023 14.3 11.4 - 15.2 g/dL Final Platelet Count Date Value Ref Range Status 03/24/2023 210 150 - 393 K/uL Final PLATELET COUNT Date Value Ref Range Status 01/29/2019 201 150 - 393 K/uL Final ALT Date Value Ref Range Status 03/24/2023 12 9 - 48 U/L Final 01/29/2019 10 9 - 48 U/L Final AST Date Value Ref Range Status 03/24/2023 14 10 - 39 U/L Final 01/29/2019 14 14 - 40 U/L Final Creatinine Date Value Ref Range Status 08/10/2019 0.77 0.50 - 1.20 mg/dL Final CREATININE SERUM Date Value Ref Range Status 05/21/2017 0.91 0.50 - 1.20 mg/dL Final CREATININE, MG/DL, URINE Date Value Ref Range Status 01/02/2017 190.00 mg/dL Final Creatinine, Urine Date Value Ref Range Status 03/03/2006 Test requested but not received in labs Final . Past medical history and complete review of systems are otherwise negative for fevers, other constitutional symptoms I have today reviewed the patients medical, surgical and other pertinent history in detail and have updated medication and allergy information in the computerized patient record. Blood pressure 102/62, pulse 65, height 1.753 m (5' 9 ), weight 51.7 kg (114 lb), SpO2 99 %, not currently . Skin showed no rash. Eyes were clear. Extremities demonstrated no varicosities or peripheral edema. Joint examination showed mild synovitis. Right upper, right lower, left upperand left lower extremities demonstrated normal range of motion, tonus, stability and inspection . Assessment and Plan: I discussed discontinuing the methotrexate and switching to azathioprine 50 mgdaily discussed hazards - hematologic hepatic and need for close monitoring we will get labs today and discontinue methotrexate start 50 mg azathioprine daily. Encounter Diagnoses Name Primary? Seronegative rheumatoid arthritis Yes Behcet's disease Polyarthralgia Encounter for long-term current use of medication Orders Placed This Encounter PROMETHEUS TPMT GENETICS JAZIEL MULTIPLEX SCRN WITH REFLEX BUN CREA C REACTIVE PROTEIN azaTHIOprine 50 MG tablet URINALYSIS documented [facility] History of Present illness Narrative* Tarah Lee RN - 03/24/2023 1:45 PM EDT Declines AVS * Sebastian Palomo MD - 03/24/2023 1:45 PM EDT I was the infusion attending 03/24/2023. I was physically present in the clinic and immediately available to the infusion team for all patient care needs. [facility] encounter[facility] History of Present illness Narrative* Brandi Pelaez DO - 02/17/2023 1:00 PM EDT I am the infusion center attending for 02/17/2023 Brandi Pelaez DO Layout [employer] frame runner Department of Rheumatology [facility] documented in this encounter[facility] History of Present illness Narrative* Kalyan Proctor MD - 01/17/2023 3:20 PM EDT Images from the original note were not included. Ayleen Ocasio was seen in the office today for her seronegative Rheumatoid Arthritis doing well minimal joint pain . taking 7.5 mg per week methotrexate but cannot determine if very helpful Overall, she has been experiencing mild symptoms. Symptoms have been present past several months. Her joint pain has been intermittent. She does not describe joint swelling, joint redness or joint heat. She denies morning stiffness. She denies fever / chills. Pain is aching in nature, exacerbated by activity and to some extent diminished with rest or medications. Stamina has been good. She Current Outpatient Medications Medication Sig Dispense Refill DISABILITY PLACARD Disability placard end date 2023 has arthritis needs placard 4 years cannot walk 30 feet 1 Each 0 InFLIXimab 100 MG Recon Soln by Intravenous route.. methotrexate 2.5 MG tablet Take 3 tablets by mouth every 7 days. 20 tablet 4 predniSONE 5 MG tablet Take 1 tablet by mouth 2 times daily. 180 tablet 0 No current facility-administered medications for this visit. . She denies any side effects from the above medications She denies any side effects from the methotrexate such as cough, shortness of breath or bloody diarrhea and will continue to take above dose. Patient has been previously informed that Methotrexate therapy requires CBC, Platelets, AST, ALT, Serum Creatinine and Albumin every 8-10 weeks. These tests must be performed at a lab near home or here to be included in our database for review. I reviewed her laboratory studies in our database which include: WBC (WHITE BLOOD COUNT) Date Value Ref Range Status 01/29/2019 7.64 3.99 - 11.19 K/uL Final WBC Count Date Value Ref Range Status 12/10/2022 8.00 3.99 - 11.19 K/uL Final HEMOGLOBIN (HGB) Date Value Ref Range Status 01/29/2019 14.8 11.4 - 15.2 g/dL Final Hemoglobin Date Value Ref Range Status 12/10/2022 14.6 11.4 - 15.2 g/dL Final Platelet Count Date Value Ref Range Status 12/10/2022 235 150 - 393 K/uL Final PLATELET COUNT Date Value Ref Range Status 01/29/2019 201 150 - 393 K/uL Final ALT Date Value Ref Range Status 12/10/2022 17 9 - 48 U/L Final 01/29/2019 10 9 - 48 U/L Final AST Date Value Ref Range Status 12/10/2022 23 10 - 39 U/L Final 01/29/2019 14 14 - 40 U/L Final Creatinine Date Value Ref Range Status 08/10/2019 0.77 0.50 - 1.20 mg/dL Final CREATININE SERUM Date Value Ref Range Status 05/21/2017 0.91 0.50 - 1.20 mg/dL Final CREATININE, MG/DL, URINE Date Value Ref Range Status 01/02/2017 190.00 mg/dL Final Creatinine, Urine Date Value Ref Range Status 03/03/2006 Test requested but not received in labs Final . Past medical history and complete review of systems are otherwise negative for fevers, other constitutional symptoms I have today reviewed the patients medical, surgical and other pertinent history in detail and have updated medication and allergy information in the computerized patient record. Blood pressure 118/72, pulse 77, height 1.753 m (5' 9 ), weight 53.5 kg (118 lb), SpO2 99 %, not currently . Skin showed no rash. Eyes were clear. Extremities demonstrated no varicosities or peripheral edema. Joint examination showed mild synovitis. Right upper, right lower, left upperand left lower extremities demonstrated normal range of motion, tonus, stability and inspection . Assessment and Plan: She is taking 7.5 mg weekly methotrexate occasional prednisone minimal stiffness no stiffness oral lesions discussed remicade and rare past reports of infections neurologic issues and lymphoma- no change return December Encounter Diagnoses Name Primary? Seronegative rheumatoid arthritis Polyarthralgia Encounter for long-term current use of medication Rheumatoid arthritis involving multiple sites with positive rheumatoid factor Orders Placed This Encounter predniSONE 5 MG tablet [facility] History of Present illness Narrative* Angella Thomas MD - 01/15/2023 12:30 PM EDT Infusion center attending DOS 01/15/2023 [facility] History of Present illness Narrative* Angella Thomas MD - 12/10/2022 12:30 PM EDT Infusion center attending DOS 12/10/2022 documented in this encounter[facility] Miscellaneous Notes* Result Encounter Note - Kalyan Proctor MD - 12/10/2022 12:30 PM EDT I have reviewed enclosed results which are satisfactory. documented in this encounter[facility] Progress note* Result Encounter Note - Kalyan Proctor MD - 12/10/2022 12:30 PM EDT I have reviewed enclosed results which are satisfactory. [facility]04-24-[facility] History of Present illness Narrative* Hui Galaviz MD - 11/04/2022 12:30 PM EDT Infusion attending. 11/04/22 Hui Galaviz MD documented in this encounterOS[facility]03[facility] History of Present illness Narrative* Brandi Pelaez DO - 09/30/2022 12:30 PM EDT Infusion Center attending, present and available during entire infusion. No problems. Brandi Pelaez DO documented in this encounterOS[facility]03[facility] History of Present illness Narrative* Geeta Munson MA - 09/13/2022 1:40 PM EST PT offered flu vaccination during visit. PT(accepted/declined):declined Flu vaccine order pended for physician review (Yes/No):n If No, did the patient obtain the flu vaccination elsewhere (Yes/No):n Medications reviewed with patient by Geeta Munson MA Are you currently taking any OTC medication/supplements/herbals? No Any questions about your medications or need more information? No Any barriers to care, such as cost or side effects from your medications? No Any hospitalizations, ED or other specialist visits since your last appointment with us? No * Kalyan Proctor MD - 09/13/2022 1:40 PM EST Ayleen Ocasio was seen in the office today for her seronegative Rheumatoid Arthritis doing well minimal joint pain . Overall, she has been experiencing mild symptoms. Symptoms have been present past several months. Her joint pain has been intermittent. She does not describe joint swelling, joint redness or joint heat. She denies morning stiffness. She denies fever / chills. Pain is aching in nature, exacerbated by activity and to some extent diminished with rest or medications. Stamina has been good. She Current Outpatient Medications Medication Sig Dispense Refill DISABILITY PLACARD Disability placard end date 2023 has arthritis needs placard 4 years cannot walk 30 feet 1 Each 0 InFLIXimab 100 MG Recon Soln by Intravenous route.. methotrexate 2.5 MG tablet Take 3 tablets by mouth every 7 days. 20 tablet 4 predniSONE 5 MG tablet Take 1 tablet by mouth 2 times daily. 180 tablet 0 No current facility-administered medications for this visit. . She denies any side effects from the above medications She denies any side effects from the methotrexate such as cough, shortness of breath or bloody diarrhea and will continue to take above dose. Patient has been previously informed that Methotrexate therapy requires CBC, Platelets, AST, ALT, Serum Creatinine and Albumin every 8-10 weeks. These tests must be performed at a lab near home or here to be included in our database for review. I reviewed her laboratory studies in our database which include: WBC (WHITE BLOOD COUNT) Date Value Ref Range Status 01/29/2019 7.64 3.99 - 11.19 K/uL Final WBC Count Date Value Ref Range Status 08/23/2022 11.26 (H) 3.99 - 11.19 K/uL Final HEMOGLOBIN (HGB) Date Value Ref Range Status 01/29/2019 14.8 11.4 - 15.2 g/dL Final Hemoglobin Date Value Ref Range Status 08/23/2022 15.6 (H) 11.4 - 15.2 g/dL Final Platelet Count Date Value Ref Range Status 08/23/2022 236 150 - 393 K/uL Final PLATELET COUNT Date Value Ref Range Status 01/29/2019 201 150 - 393 K/uL Final ALT Date Value Ref Range Status 08/23/2022 36 9 - 48 U/L Final 01/29/2019 10 9 - 48 U/L Final AST Date Value Ref Range Status 08/23/2022 20 10 - 39 U/L Final 01/29/2019 14 14 - 40 U/L Final Creatinine Date Value Ref Range Status 08/10/2019 0.77 0.50 - 1.20 mg/dL Final CREATININE SERUM Date Value Ref Range Status 05/21/2017 0.91 0.50 - 1.20 mg/dL Final CREATININE, MG/DL, URINE Date Value Ref Range Status 01/02/2017 190.00 mg/dL Final . Past medical history and complete review of systems are otherwise negative for fevers, other constitutional symptoms I have today reviewed the patients medical, surgical and other pertinent history in detail and have updated medication and allergy information in the computerized patient record. Blood pressure 120/58, pulse 76, resp. rate 16, height 1.753 m (5' 9 ), weight 53.1 kg (117 lb), SpO2 96 %, not currently . Skin showed no rash. Eyes were clear. Extremities demonstratedno varicosities or peripheral edema. Joint examination showed mild synovitis. Right upper, right lower, left upper and left lower extremities demonstrated normal range of motion, tonus, stability andinspection . Assessment and Plan: She is taking 7.5 mg weekly methotrexate occasional prednisone minimal stiffness no stiffness oral lesions discussed remicade and rare past reports of infections neurologic issues and lymphoma- no change return December Encounter Diagnoses Name Primary? Seronegative rheumatoid arthritis Polyarthralgia Encounter for long-term current use of medication Rheumatoid arthritis involving multiple sites with positive rheumatoid factor Sore lip Yes Behcet's disease Orders Placed This Encounter predniSONE 5 MG tablet documented [facility] this encounter[facility] History of Present illness Narrative* La Nena Bates DO - 08/23/2022 12:30 PM EST [facility] Attending 08/23/2022 La Nena Bates DO documented in this encounterOS[facility]02[facility]23 Miscellaneous Notes* Result Encounter Note - Kalyan Proctor MD - 08/23/2022 12:30 PM EST I have reviewed enclosed results which are satisfactory. documented in this encounterOS[facility] Progress note* Result Encounter Note - Kalyan Proctor MD - 08/23/2022 12:30 PM EST I have reviewed enclosed results which are satisfactory. [facility]01-[facility] History of Present illness Narrative* La Nena Bates DO - 07/19/2022 12:30 PM EST [facility] Attending 07/19/2022 La Nena Bates DO documented in this encounterOS[facility]12[facility] History of Present illness Narrative* La Nena Bates DO - 06/14/2022 12:30 PM EST Infusion Center Attending 06/14/2022 La Nena Bates DO documented in this encounter[facility]11[facility] History of Present illness Narrative* Nando Padilla LPN - 06/10/2022 10:40 AM EST Patients Name, , PCP and pharmacy verfied by RICKIE PT offered flu vaccination during visit. PT(accepted/declined):declined Flu vaccine order pended for physician review (Yes/No):no If No, did the patient obtain the flu vaccination elsewhere (Yes/No):no * Kalyan Proctor MD - 06/10/2022 10:40 AM EST Ayleen Ocasio was seen in the office today for her seronegative Rheumatoid Arthritis doing well but having occasional mucosal sore must take prednisone 10 mg and would like to avoid. Overall, she has been experiencing mild symptoms. Symptoms have been present past several months. Her joint pain has been intermittent. She does not describe joint swelling, joint redness or joint heat. She denies morning stiffness. She denies fever / chills. Pain is aching in nature, exacerbated by activity and to some extent diminished with rest or medications. Stamina has been pretty good. She Current Outpatient Medications Medication Sig Dispense Refill DISABILITY PLACARD Disability placard end date 2023 has arthritis needs placard 4 years cannot walk 30 feet 1 Each 0 InFLIXimab 100 MG Recon Soln by Intravenous route.. predniSONE 5 MG tablet Take 1 tablet by mouth 2 times daily. 180 tablet 0 methotrexate 2.5 MG tablet Take 3 tablets by mouth every 7 days. 20 tablet 4 No current facility-administered medications for this visit. . She denies any side effects from the above medications I discussed restarting methotrexate discussed hepatic fibrosis a and use of fibroscan anemia lymphoma and infections she accept and start 7.5 mg weekly so as to have to take less prednisone. Past medical history and complete review of systems are otherwise negative for fevers, other constitutional symptoms I have today reviewed the patients medical, surgical and other pertinent history in detail and have updated medication and allergy information in the computerized patient record. Blood pressure 110/68, pulse 73, height 1.753 m (5' 9 ), weight 55.3 kg (122 lb), SpO2 99 %, not currently . Skin showed no rash. Eyes were clear. Extremities demonstrated no varicosities or peripheral edema. Joint examination showed mild synovitis. Right upper, right lower, left upperand left lower extremities demonstrated normal range of motion, tonus, stability and inspection . Assessment and Plan: She is doing well and will restart the methotrexate with monitoring Encounter Diagnoses Name Primary? 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 Encounter for long-term current use of medication Rheumatoid arthritis involving multiple sites with positive rheumatoid factor Orders Placed This Encounter predniSONE 5 MG tablet methotrexate 2.5 MG tablet 14 weeks documented in this [facility]10-21-2022 History of Present illness Narrative* La Nena Bates DO - 05/03/2022 12:30 PM EDT [facility] Attending 05/03/2022 La Nena Bates DO documented in this [facility]09-16-2022 History of Present illness Narrative* Rachael Crockett MD - 03/29/2022 12:30 PM EDT Infusion Center Attending Staff on 03/29/2022 . documented in this [facility]09-02-2022 History of Present illness Narrative* Negin Gasca - 03/15/2022 3:40 PM EDT Patients name and verfied by FLIGHT CONTROL SPECIALIST * Kalyan Proctor MD - 03/15/2022 3:40 PM EDT Ayleen Ocasio was seen in the office today for her seronegative Rheumatoid Arthritis and she is doing very well with the remicae - maintained in remission with every 5 weeks interval. Overall, she has been experiencing mild symptoms. Symptoms have been present past several months. Her joint pain has been intermittent. She does not describe joint swelling, joint redness or joint heat. She denies morning stiffness. She denies fever / chills. Pain is aching in nature, exacerbated by activity and to some extent diminished with rest or medications. Stamina has been good. She Current Outpatient Medications Medication Sig Dispense Refill DISABILITY PLACARD Disability placard end date 2023 has arthritis needs placard 4 years cannot walk 30 feet 1 Each 0 InFLIXimab 100 MG Recon Soln by Intravenous route.. predniSONE 5 MG tablet Take 1 tablet by mouth 2 times daily. 60 tablet 1 No current facility-administered medications for this visit. . She denies any side effects from the above medications She does contineu prednisoen 5 mg two daily most days advised ca supplentation and Vit D. Past medical history and complete review of systems are otherwise negative for fevers, other constitutional symptoms I have today reviewed the patients medical, surgical and other pertinent history in detail and have updated medication and allergy information in the computerized patient record. Blood pressure 102/62, pulse 77, height 1.753 m (5' 9 ), weight 52.6 kg (116 lb), SpO2 96 %, not currently . Skin showed no rash. Eyes were clear. Extremities demonstrated no varicosities or peripheral edema. Joint examination showed mild synovitis. Right upper, right lower, left upperand left lower extremities demonstrated normal range of motion, tonus, stability and inspection . Assessment and Plan: She is doing well - functional and feels well - no side effects we discussed rare past reports injections neurologic issues and lymphoma with TNF inhibitors note history of Behcets Encounter Diagnoses Name Primary? Seronegative rheumatoid arthritis Yes Rheumatoid arthritis involving multiple sites with positive rheumatoid factor Polyarthralgia Behcet's disease Encounter for long-term current use of medication 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 Sore lip Numbness and tingling in left arm Malaise [facility] History of Present illness Narrative* Ashley Quiroz MD - 02/22/2022 12:30 PM EDT Infusion Center attending, present and available during entire infusion. No problems. Ashley Quiroz MD [facility] History of Present illness Narrative* Rachael Crockett MD - 01/18/2022 12:30 PM EDT Infusion Center Attending Staff on 01/18/2022 . [facility] Miscellaneous Notes* Result Encounter Note - Kalyan Proctor MD - 01/18/2022 12:30 PM EDT I have reviewed enclosed results which are satisfactory. [facility] Progress note* Result Encounter Note - Kalyan Proctor MD - 01/18/2022 12:30 PM EDT I have reviewed enclosed results which are satisfactory. [facility] History of Present illness Narrative* Rachael Crockett MD - 12/14/2021 12:30 PM EDT Infusion Center Attending Staff on 12/14/2021 . [facility] History of Present illness Narrative* Brianda Spangler LPN - 11/30/2021 3:20 PM EDT Medications reviewed with patient by Brianda Spangler LPN Are you currently taking any OTC medication/supplements/herbals? No Any questions about your medications or need more information? Yes: wants to discuss prednisone Any barriers to care, such as cost or side effects from your medications? No Any hospitalizations, ED or other specialist visits since your last appointment with us? No * Kalyan Proctor MD - 11/30/2021 3:20 PM EDT Ayleen Ocasio was seen in the office today for her seronegative Rheumatoid Arthritis and she is receiving remicade doing pretty well 4/10 pain joint at time- . Overall, she has been experiencing moderate symptoms. Symptoms have been present past several weeks. Her joint pain has been constant. She does not describe joint swelling, joint redness or joint heat. She denies morning stiffness. She denies fever / chills. Pain is aching in nature, exacerbated byactivity and to some extent diminished with rest or medications. Stamina has been pretty good. She Current Outpatient Medications Medication Sig Dispense Refill DISABILITY PLACARD Disability placard end date 2023 has arthritis needs placard 4 years cannot walk 30 feet 1 Each 0 InFLIXimab 100 MG Recon Soln by Intravenous route.. predniSONE 5 MG tablet Take 1 tablet by mouth 2 times daily. 60 tablet 1 No current facility-administered medications for this visit. . She denies any side effects from the above medications I told her I do not want to change her prednisone . Past medical history and complete review of systems are otherwise negative for fevers, other constitutional symptoms I have today reviewed the patients medical, surgical and other pertinent history in detail and have updated medication and allergy information in the computerized patient record. Blood pressure 110/70, pulse 80, resp. rate 14, weight 55.8 kg (123 lb), SpO2 98 %, not currently . Skin showed no rash. Eyes were clear. Extremities demonstrated no varicosities or peripheral edema. Joint examination showed minimal synovitis. Right upper, right lower, left upper and left lower extremities demonstrated normal range of motion, tonus, stability and inspection . Assessment and Plan: I recommend she continue the remicade with caution and follow up with me in 3 mos -She would benefit to move remicade from every 6 weeks to every 5 weeks. discussed with infusionunit. Encounter Diagnoses Name Primary? Seronegative rheumatoid arthritis Yes Rheumatoid arthritis involving multiple sites with positive rheumatoid factor Polyarthralgia Encounter for long-term current use of medication 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 Behcet's disease No orders of the defined types were placed in this encounter. Disposition: No disposition on file. [facility] History of Present illness Narrative* Rachael Crockett MD - 11/02/2021 1:30 PM EDT [facility] Attending Staff on 11/02/2021 . documented [facility] History of Present illness Narrative* Huong Lott DO - 02/05/2021 7:30 AM EDT [facility] attending. 02/05/2021 documented in this encounter[facility] Miscellaneous Notes* Result QuickNote - Kalyan Proctor MD - 02/05/2021 7:30 AM EDT I have reviewed enclosed results which are satisfactory. documented [facility]* Diagnosis Seronegative rheumatoid arthritis- Primary Rheumatoid arthritis Behcet's disease Behcet's syndrome [facility] Diagnosis Seronegative rheumatoid arthritis- Primary Rheumatoid arthritis Behcet's disease Behcet's syndrome [facility] Diagnosis Seronegative rheumatoid arthritis- Primary Rheumatoid arthritis Rheumatoid arthritis involving multiple sites with positive rheumatoid factor Polyarthralgia Pain in joint, multiple sites Encounter for long-term current use of medication 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 Encounter for long-term (current) use of steroids Behcet's disease Behcet's syndrome [facility] Diagnosis Seronegative rheumatoid arthritis- Primary Rheumatoid arthritis Behcet's disease Behcet's syndrome [facility] Diagnosis Seronegative rheumatoid arthritis- Primary Rheumatoid arthritis Behcet's disease Behcet's syndrome [facility]* Diagnosis Seronegative rheumatoid arthritis- Primary Rheumatoid arthritis Rheumatoid arthritis involving multiple sites with positive rheumatoid factor Polyarthralgia Pain in joint, multiple sites Behcet's disease Behcet's syndrome Encounter for long-term current use of medication intermediate current use of systemic steroids Encounter for long-term (current) use of steroids Sore lip Numbness and tingling in left arm Disturbance of skin sensation Malaise Other malaise and fatigue [facility]* Diagnosis Seronegative rheumatoid arthritis- Primary Rheumatoid arthritis Behcet's disease Behcet's syndrome [facility] Diagnosis Seronegative rheumatoid arthritis- Primary Rheumatoid arthritis Polyarthralgia Pain in joint, multiple sites Behcet's disease Behcet's syndrome intermediate current use of systemic steroids Encounter for long-term (current) use of steroids Encounter for long-term current use of medication Rheumatoid arthritis involving multiple sites with positive rheumatoid factor [facility]* Diagnosis Sore lip- Primary Seronegative rheumatoid arthritis Rheumatoid arthritis Polyarthralgia Pain in joint, multiple sites Encounter for long-term current use of medication 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 [facility] Diagnosis Seronegative rheumatoid arthritis- Primary Rheumatoid arthritis Behcet's disease Behcet's syndrome [facility] Diagnosis Seronegative rheumatoid arthritis- Primary Rheumatoid arthritis Behcet's disease Behcet's syndrome [facility]* Diagnosis Seronegative rheumatoid arthritis Rheumatoid arthritis Polyarthralgia Pain in joint, multiple sites Encounter for long-term current use of medication Rheumatoid arthritis involving multiple sites with positive rheumatoid factor [facility] Diagnosis Seronegative rheumatoid arthritis- Primary Rheumatoid arthritis Behcet's disease Behcet's syndrome Polyarthralgia Pain in joint, multiple sites Rheumatoid arthritis involving multiple sites with positive rheumatoid factor intermediate current use of systemic steroids Encounter for long-term (current) use of steroids [facility] Diagnosis Seronegative rheumatoid arthritis- Primary Rheumatoid arthritis Behcet's disease Behcet's syndrome Polyarthralgia Pain in joint, multiple sites Encounter for long-term current use of medication [facility] Diagnosis Seronegative rheumatoid arthritis- Primary Rheumatoid arthritis Behcet's disease Behcet's syndrome Polyarthralgia Pain in joint, multiple sites Encounter for long-term current use of medication [facility]* Diagnosis Behcet's disease- Primary Behcet's syndrome Seronegative rheumatoid arthritis Rheumatoid arthritis [facility]* Diagnosis Behcet's disease- Primary Behcet's syndrome Seronegative rheumatoid arthritis Rheumatoid arthritis Polyarthralgia Pain in joint, multiple sites Encounter for long-term current use of medication intermediate current use of systemic steroids Encounter for long-term (current) use of steroids [facility]* Diagnosis Behcet's disease- Primary Behcet's syndrome Seronegative rheumatoid arthritis Rheumatoid arthritis documented [facility] noteNo assessment information available [facility] Work Phone: Evaluation note* Diagnosis Onset Date Resolution Status Dyspepsia acute Cannabinoid hyperemesis syndrome noneactive Epigastric pain noneactive [facility] Work Phone: Evaluation note* Diagnosis Behcet's disease- Primary Behcet's syndrome Seronegative rheumatoid arthritis Rheumatoid arthritis [facility]* Diagnosis Seronegative rheumatoid arthritis- Primary Rheumatoid arthritis Behcet's disease Behcet's syndrome Polyarthralgia Pain in joint, multiple sites Encounter for long-term current use of medication [facility]* Diagnosis Seronegative rheumatoid arthritis- Primary Rheumatoid arthritis Rheumatoid arthritis involving multiple sites with positive rheumatoid factor Polyarthralgia Pain in joint, multiple sites Encounter for long-term current use of medication [facility]* Diagnosis Behcet's disease- Primary Behcet's syndrome Seronegative rheumatoid arthritis Rheumatoid arthritis [facility]* Diagnosis Tobacco dependency- Primary Tobacco use disorder 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) 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 Encounter for screening for osteoporosis 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CMS/HCC) Behcet's syndrome Annual physical exam Routine general medical examination at a health care facility Smoker Tobacco use disorder Screening mammogram, encounter for Left upper quadrant abdominal pain Abdominal wall mass of left upper quadrant Encounter to establish care Abdominal wall mass of left upper quadrant- Primary 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CMS/HCC)- Primary Behcet's syndrome Abdominal wall mass of left upper quadrant Medicare annual wellness visit, subsequent Tobacco dependency Tobacco use disorder 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CMS/HCC)- 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) Tobacco dependency Tobacco use disorder Dental abscess- Primary Periapical abscess without sinus 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CMS/HCC)- Primary Behcet's syndrome Screening mammogram, encounter for documented in this encounter [facility]* Diagnosis Behcet's disease- Primary Behcet's syndrome Seronegative rheumatoid arthritis Rheumatoid arthritis [facility] Diagnosis Seronegative rheumatoid arthritis- Primary Rheumatoid arthritis Family history of cleft palate Family history of congenital anomalies intermediate current use of systemic steroids Encounter for long-term (current) use of steroids Decreased hearing of left ear Hearing loss due to cerumen impaction, left Polyarthralgia Pain in joint, multiple sites Encounter for long-term current use of medication Rheumatoid arthritis involving multiple sites with positive rheumatoid factor [facility]* Diagnosis Tobacco dependency- Primary Tobacco use disorder 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) 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 Encounter for screening for osteoporosis 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[facility]/HCC) Behcet's syndrome Annual physical exam Routine general medical examination at a health care facility Smoker Tobacco use disorder Screening mammogram, encounter for Left upper quadrant abdominal pain Abdominal wall mass of left upper quadrant Encounter to establish care Abdominal wall mass of left upper quadrant- Primary 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CMS/HCC)- Primary Behcet's syndrome Abdominal wall mass of left upper quadrant Medicare annual wellness visit, subsequent Tobacco dependency Tobacco use disorder 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CMS/HCC)- 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) Tobacco dependency Tobacco use disorder Dental abscess- Primary Periapical abscess without sinus 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[facility]/HCC)- Primary Behcet's syndrome Screening mammogram, encounter for Well woman exam with routine gynecological exam Routine gynecological examination documented in this encounter [facility] Author Duran Loaiza [facility] August 26, 2023 12:52pm Note Date/Time August 26, 2023 12:52pm [facility] [address] [place] [address] Gastroenterology H&P Signed Patient: Ayleen Ocasio MR#: [id number] : 1980 Acct:[id number] Age/Sex: 43 / F Adm Date: 4 Loc: Room: Type: [facility] Attending Dr: Duran Loaiza MD Copies to: MD Shaikh Manjeet Ram MD~ Date of Service: 08/26/2023 HISTORY & PHYSICAL: Patient's history with special attention to the cardiovascular, pulmonary systems and the current problem was reviewed with the patient immediately prior to the procedure. Present medications and doses reviewed in the EMR. Allergies and pertinent laboratory tests were also reviewedat this time in the EMR. The physical examination, as below, was then performed. Indication, assessment and HPI: This is a 43-year-old female who presents for EGD to evaluate dyspepsia, nausea, bloating, early satiety Family history of GI malignancy? No PHYSICAL EXAMINATION Mouth and Pharynx : Moist mucus membranes, normal dentition Cardiac: Regular rate, regular rhythm Pulmonary: Clear to auscultation bilaterally, no wheezing Neurological: Alert and oriented x3, no focal deficits noted Abdomen: Abdomen soft, non-tender REVIEW OF SYSTEMS Constitutional: Denies malaise, fevers Cardiovascular: Denies chest pain, palpitations Respiratory: Denies shortness of breath, wheezing Gastrointestinal: Per HPI Genitourinary: Denies dysuria, polyuria Musculoskeletal: Denies joint swelling, joint stiffness Neurological: Denies numbness, tingling Integumentary: Denies rashes, skin lesions Endocrine: Denies fatigue, weight loss Written informed consent obtained from the patient. Risks (including but not limited to perforation, infection, bloating, bleeding, need for emergent surgeryand loss of life), benefits and alternatives explained and questions answered. The patient verbalized understanding. Based on history patient is an appropriate candidate for the procedure. Duran Loaiza MD Documented By: Duran Loaiza MD 08/26/23 1251 Signed By: <Electronically signed by Duran Loaiza MD> 08/26/23 1252 [facility] Work Phone: History general Narrative - Reported* Type Description Date Medical History lupus Surgical History cataract surgery Surgical History tubal ligation YODIL [facility] [employer] Other Reason for referral (narrative)* Consultation (Routine) - New Request Specialty Diagnoses / Procedures Referred By Tommy guy Referred To Contact Otolaryngology Diagnoses Seronegative rheumatoid arthritis Family history of cleft palate 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 Decreased hearing of left ear Hearing loss due to cerumen impaction, left Polyarthralgia Encounter for long-term current use of medication Rheumatoid arthritis involving multiple sites with positive rheumatoid factor Kalyan Proctor MD [address] [place] [id number] Referral ID Status Reason Start Date Expiration Date V isits Requested Visits Authorized [id number] New Request 06/14/2024 07/09/2025 1 1 [facility] Summary Purpose Family History Relationship Condition Age at Onset Recorded Date/T ivana father Unknown Septicemia Unknown Not Specified Unknown Malignant neoplasm Unknown Malignant neoplasm of cervix Unknown Advance Directives Latest Code Status on File Code Status Date Activated Date Inactivated Comments Full Code 01/03/2017 5:39 PM 01/05/2017 2:29 PM Full Code 01/02/2017 10:01 PM 01/02/2017 10:14 PM Full Code 12/12/2014 12:34 PM 12/12/2014 11:59 PM Latest Code Status on File Code Status Date Activated Date Inactivated Comments Full Code 01/03/2017 5:39 PM 01/05/2017 2:29 PM Code Status History Code Status Date Activated Date Inactivated Comments Full Code 01/02/2017 10:01 PM 01/02/2017 10:14 PM Full Code 12/12/2014 12:34 PM 12/12/2014 11:59 PM Latest Code Status on File Code Status Date Activated Date Inactivated Comments Full Code 01/03/2017 5:39 PM 01/05/2017 2:29 PM Code Status History Code Status Date Activated Date Inactivated Comments Full Code 01/02/2017 10:01 PM 01/02/2017 10:14 PM Full Code 12/12/2014 12:34 PM 12/12/2014 11:59 PM Advance Directive Response Recorded Date/ Time Advance Directives No July 26, 2019 12:34pm Advance Directive Response Recorded Date/ Time Advance Directives No July 26, 2019 1:34pm Date Activated Date Inactivated Comments 01/03/2017 5:39 PM 01/05/2017 2:29 PM Date Activated Date Inactivated Comments 01/02/2017 10:01 PM 01/02/2017 10:14 PM Date Activated Date Inactivated Comments 12/12/2014 12:34 PM 12/12/2014 11:59 PM Date Activated Date Inactivated Comments 01/03/2017 5:39 PM 01/05/2017 2:29 PM Date Activated Date Inactivated Comments 01/02/2017 10:01 PM 01/02/2017 10:14 PM Date Activated Date Inactivated Comments 12/12/2014 12:34 PM 12/12/2014 11:59 PM Reason for Referral Specialty Diagnoses / Procedures Referred By Tommy guy Referred To Contact Kalyan Proctor MD [address] [place] [phone] Referral ID Status Reason Start Date Expiration Date Visits Re quested Visits Authorized [id number] Closed 1 1 Reason evaluate and treat f or rib pain Diagnosis 1 Bloating (R14.0) Referral Organization [facility] Referring Provider First Name Oliverio Referring Provider Last Name Lazaro Referring Provider Specialty Nurse Melo lr Referred Organization Unknown Facility Referred Provider Specialty Orthopedic S urgery Referral Priority Routine Chief Complaint and Reason for Visit Chief Complaint 2 Month Follow Up Abdominal Pain, Gerd, Dyspepsia, Bloating, Early S Abdominal Pain, Gerd, Dyspepsia, Bloating, Early S Chief Complaint 2 Month Follow Up Abdominal Pain, Gerd, Dyspepsia, Bloating, Early S Abdominal Pain, Gerd, Dyspepsia, Bloating, Early S follow up colonoscopy Reason for Visit Dyspepsia Cannabinoid hyperemesis syndrome Epigastric pain Additional Source Comments INFORMATION SOURCE (unrecogn ized section and content) DATE CREATED AUTHOR 07/30/2019 [facility] DATE CREATED AUTHOR AUTHOR'S ORGANIZ ATION 08/27/2023 [facility] DATE CREATED AUTHOR AUTHOR'S ORGANIZ ATION 11/14/2023 [facility] DATE CREATED AUTHOR AUTHOR'S ORGANIZ ATION 04/29/2024 [facility] EPIC DATE CREATED AUTHOR AUTHOR'S ORGANIZ ATION 08/05/2024 [facility] Reason for Visit (unrecogniz ed section and content) Reason Comments Infusion Visit Remicade Specialty Diagnoses / Procedures Referred By Tommy guy 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 Contact Diagnoses Behcet's disease Seronegative rheumatoid arthritis Kalyan Proctor MD [address] [place] [address] [address] [address] [place] [address] Referral ID Status Reason Start Date Expiration Date V isits Requested Visits Authorized [id number] Auth Not Needed 03/16/2019 100 100 Reason Comments Infusion Visit Rapid Remicade Reason Comments Infusion Visit Specialty Diagnoses / Procedures Referred By Tommy guy Referred To Contact Diagnoses Behcet's disease Seronegative rheumatoid arthritis Kalyan Proctor MD [address] [place] [address] [address] [place] [address] Reason Comments Rheumatoid Arthritis Reason Comments Follow-up No other concerns. N o refills needed at this time Reason Comments Follow-up Reason Comments Follow-up Specialty Diagnoses / Procedures Referred By Tommy guy Referred To Contact Diagnoses Behcet's disease Seronegative rheumatoid arthritis Kalyan Proctor MD [address] [place] [address] [facility] [address] [facility] [address] [place] [address] Referral ID Status Reason Start Date Expiration Date V isits Requested Visits Authorized [id number] Authorized 03/16/2019 100 100 Reason Comments Follow-up Pt will need refills Reason Comments Well Women Visit Care Teams (unrecognized sec tion and content) Health It Specialist Relationship Specialty Start Date End Date Scot Joseph MD PCP - OBGYN SQL ETL DEVELOPER 12/13/14 Aramis Solomon MD [address] [place] [address] [phone] PCP - General 03/23/20 Fuentes Proctor MD Resident Rheumatology 12/27/16 Health It Specialist Relationship Specialty Start Date End Date Scot Joseph MD PCP - OBGYN SQL ETL DEVELOPER 12/13/14 Aramis Solomon MD [address] [place] [phone] PCP - General 03/23/20 Fuentes Proctor MD Resident Rheumatology 12/27/16 Health It Specialist Relationship Specialty Start Date End Date Scot Joseph MD PCP - OBGYN SQL ETL DEVELOPER 12/13/14 Aramis Solomon MD [address] [place] [phone] PCP - General 03/23/20 Fuentes Proctor MD Resident Rheumatology 12/27/16 Health It Specialist Relationship Specialty Start Date End Date Scot Joseph MD PCP - OBGYN SQL ETL DEVELOPER 12/13/14 Aramis Solomon MD [address] [place] [phone] PCP - General 03/23/20 Fuentes Proctor MD Resident Rheumatology 12/27/16 Health It Specialist Relationship Specialty Start Date End Date Scot Joseph MD PCP - OBGYN Obstetrics & Gynecology 12/13/14 Aramis Solomon MD [address] [place] [phone] PCP - General 03/23/20 Fuentes Proctor MD Resident Rheumatology 12/27/16 Health It Specialist Relationship Specialty Start Date End Date Scot Joseph MD PCP - OBGYN Obstetrics & Gynecology 12/13/14 Aramis Solomon MD [address] [place] [phone] PCP - General 03/23/20 Fuentes Proctor MD Resident Rheumatology 12/27/16 Health It Specialist Relationship Specialty Start Date End Date Scot Joseph MD PCP - OBGYN Obstetrics & Gynecology 12/13/14 Aramis Solomon MD [address] [place] [phone] PCP - General 03/23/20 Fuentes Proctor MD Resident Rheumatology 12/27/16 Health It Specialist Relationship Specialty Start Date End Date Scot Joseph MD PCP - OBGYN Obstetrics & Gynecology 12/13/14 Aramis Solomon MD [address] [place] [phone] PCP - General 03/23/20 Fuentes Proctor MD Resident Rheumatology 12/27/16 Health It Specialist Relationship Specialty Start Date End Date Scot Joseph MD PCP - OBGYN Obstetrics & Gynecology 12/13/14 Aramis Solomon MD [address] [place] [address] [phone] PCP - General 03/23/20 Fuentes Proctor MD Resident Rheumatology 12/27/16 Health It Specialist Relationship Specialty Start Date End Date Scot Joseph MD PCP - OBGYN Obstetrics & Gynecology 12/13/14 Aramis Solomon MD [address] [place] [phone] PCP - General 03/23/20 Fuentes Proctor MD Resident Rheumatology 12/27/16 Health It Specialist Relationship Specialty Start Date End Date Scot Joseph MD PCP - OBGYN Obstetrics & Gynecology 12/13/14 Aramis Solomon MD [address] [place] [phone] PCP - General 03/23/20 Fuentes Proctor MD Resident Rheumatology 12/27/16 Health It Specialist Relationship Specialty Start Date End Date Scot Joseph MD PCP - OBGYN Obstetrics & Gynecology 12/13/14 Aramis Solomon MD [address] [place] [address] PCP - General 03/23/20 Fuentes Proctor MD Resident Rheumatology 12/27/16 Health It Specialist Relationship Specialty Start Date End Date Scot Joseph MD PCP - OBGYN Obstetrics & Gynecology 12/13/14 Aramis Solomon MD [address] [place] [address] [phone] PCP - General 03/23/20 Fuentes Proctor MD Resident Rheumatology 12/27/16 Health It Specialist Relationship Specialty Start Date End Date Scot Joseph MD PCP - OBGYN Obstetrics & Gynecology 12/13/14 Aramis Solomon MD [address] [place] [phone] PCP - General 03/23/20 Fuentes Proctor MD Resident Rheumatology 12/27/16 Health It Specialist Relationship Specialty Start Date End Date Scot Joseph MD PCP - OBGYN Obstetrics & Gynecology 12/13/14 Aramis Solomon MD [address] [place] [phone] PCP - General 03/23/20 Fuentes Proctor MD Resident Rheumatology 12/27/16 Health It Specialist Relationship Specialty Start Date End Date Scot Joseph MD PCP - OBGYN Obstetrics & Gynecology 12/13/14 Aramis Solomon MD [address] [place] [phone] PCP - General 03/23/20 Fuentes Proctor MD Resident Rheumatology 12/27/16 Health It Specialist Relationship Specialty Start Date End Date Scot Joseph MD PCP - OBGYN Obstetrics & Gynecology 12/13/14 Aramis Solomon MD [address] [place] [phone] PCP - General 03/23/20 Fuentes Proctor MD Resident Rheumatology 12/27/16 Health It Specialist Relationship Specialty Start Date End Date Scot Joseph MD PCP - OBGYN Obstetrics & Gynecology 12/13/14 Aramis Solomon MD [address] [place] [phone] PCP - General 03/23/20 Fuentes Proctor MD Resident Rheumatology 12/27/16 Health It Specialist Relationship Specialty Start Date End Date Scot Joseph MD PCP - OBGYN Obstetrics & Gynecology 12/13/14 Shaikh Laila Burroughs MD [address] [place] [address] PCP - General Internal Medicine 07/04/23 Fuentes Proctor MD Resident Rheumatology 12/27/16 Health It Specialist Relationship Specialty Start Date End Date Scot Joseph MD PCP - OBGYN Obstetrics & Gynecology 12/13/14 Aramis Solomon MD [address] [place] [phone] PCP - General 03/23/20 07/03/23 Fuentes Proctor MD Resident Rheumatology 12/27/16 Health It Specialist Relationship Specialty Start Date End Date Shaikh Burroughs MD [address] [place] [address] PCP - General Internal Medicine 08/08/23 Team Status: Active Member Role Status Dates Shaikh Manjeet MD Primary Care Provider Active Team Status: Inactive Member Role Status Dates Oliverio Willis APRN Attending Provider Active Start: August 12, 2023 End: August 12, 2023 Team Status: Inactive Member Role Status Dates Duran Loaiza MD Attending Provider Active S tart: August 26, 2023 End: August 26, 2023 Shaikh Manjeet MD Primary Care Provider Active Start: August 26, 2023 End: August 26, 2023 Team Status: Active Member Role Status Dates Duran Loaiza MD Attending Provider, Other Provider Active Start: August 26, 2023 Shaikh Manjeet MD Primary Care Provider Active Start: August 26, 2023 Team Status: Inactive Member Role Status Dates Shaikh Manjeet MD Primary Care Provider Active Start: October 03, 2023 End: October 03, 2023 Oliverio Willis APRN Attending Provider Active Start: October 03, 2023 End: October 03, 2023 Health It Specialist Relationship Specialty Start Date End Date Scot Joseph MD PCP - OBGYN Obstetrics & Gynecology 12/13/14 Shaikh Laila Burroughs MD [address] [place] [phone] PCP - General Internal Medicine 07/04/23 Fuentes Proctor MD Resident Rheumatology 12/27/16 Health It Specialist Relationship Specialty Start Date End Date Scot Joseph MD PCP - OBGYN Obstetrics & Gynecology 12/13/14 Shaikh Laila Burroughs MD [address] [place] [phone] PCP - General Internal Medicine 07/04/23 Fuentes Proctor MD Resident Rheumatology 12/27/16 Health It Specialist Relationship Specialty Start Date End Date Scot Joseph MD PCP - OBGYN Obstetrics & Gynecology 12/13/14 Shaikh Laila Burroughs MD [address] [place] [phone] PCP - General Internal Medicine 07/04/23 Fuentes Proctor MD Resident Rheumatology 12/27/16 Health It Specialist Relationship Specialty Start Date End Date Scot Joseph MD PCP - OBGYN Obstetrics & Gynecology 12/13/14 Shaikh Laila Burroughs MD [address] [place] [phone] PCP - General Internal Medicine 07/04/23 Fuentes Proctor MD Resident Rheumatology 12/27/16 Health It Specialist Relationship Specialty Start Date End Date Edmundo Gaines MD [address] [place] [phone] PCP - General Family Medicine 02/24/24 Collette Salinas NP [address] [place] [phone] Nurse Practitioner Family Medicine 02/24/24 Health It Specialist Relationship Specialty Start Date End Date Edmundo Gaines MD [address] [place] [phone] PCP - General Family Medicine 02/24/24 Collette Salinas NP [address] [place] [phone] Nurse Practitioner Family Medicine 02/24/24 Health It Specialist Relationship Specialty Start Date End Date Scot Joseph MD PCP - OBGYN Obstetrics & Gynecology 12/13/14 Shaikh Laila Burroughs MD [address] [place] [phone] PCP - General Internal Medicine 07/04/23 Fuentes Proctor MD Resident Rheumatology 12/27/16 Health It Specialist Relationship Specialty Start Date End Date Scot Joseph MD PCP - OBGYN Obstetrics & Gynecology 12/13/14 Shaikh Laila Burroughs MD [address] [place] [address] PCP - General Internal Medicine 07/04/23 Fuentes Proctor MD Resident Rheumatology 12/27/16 Health It Specialist Relationship Specialty Start Date End Date Edmundo Gaines MD [address] [phone] PCP - General Family Medicine 02/24/24 Collette Salinas NP [address] [place] [address] Nurse Practitioner Family Medicine 02/24/24 FOR RECORDS PERTAINING TO PATIENTS WHO ARE OR HAVE BEEN ENROLLED IN A CHEMICAL DEPENDENCY/SUBSTANCEABUSE PROGRAM, SOME INFORMATION MAY BE OMITTED. This clinical summary was aggregated from multiple sources. Caution should be exercised in using it in the provision of clinical care. This summary normalizes information from multiple sources, and as a consequence, information in this document may materially change the coding, format and clinical context of patient data. In addition, data may be omitted in some cases. CLINICAL DECISIONS SHOULD BE BASED ON THE PRIMARY CLINICAL RECORDS. [facility] [employer] [facility]. provides no warranty or guarantee of the accuracy or completeness of information in this document.
[2024-08-20 11:08] LABS: Age Gdln ACOG Testing Note (.); HPV Aptima Negative (Negative); IGP, Aptima HPV, rfx 16/18,45 Note (.)
== END 2024-08-16 21:27 | disposition home or self-care (01) ==
LOC: LAB 21:26
PROVIDERS: PCP Physician Assistant; Visit Provider Physician Assistant
DX: Z01.419 Encounter for gynecological examination (general) (routine) without abnormal findings (principal)
CPT/HCPCS: 87624; 88175